=== PATIENT | male | born 1955 | race Caucasian/White ===

== ENCOUNTER 2023-06-09 16:52 | Inpatient (IN) | payer MEDICARE, OTHER, SELFPAY ==
[2023-06-09] VITALS (7 sets, daily range): BP systolic 138–193; BP diastolic 84–111; BMI 23.4
[2023-06-09 15:37] LABS: % Basophils 0.4 % (0-2); % Eosinophils 0.6 % (0-6); % Immature Granulocytes 1.4 % (0-0.5); % Lymphocytes 16.3 % (20.5-51.1); % Monocytes 5.3 % (1.7-9.3); Absolute Eosinophils 0.1 10^3/uL (0-0.7); Absolute Immature Granulocytes 0.1 10^3/uL (0-0.05); Absolute Lymphocytes 1.3 10^3/uL (1.2-3.4); Absolute Monocytes 0.4 10^3/uL (0.1-0.6); Absolute Neutrophils 6.2 10^3/uL (1.4-6.5); Hematocrit 36.1 % (39.0-52.0); Hemoglobin 11.9 g/dL (13.0-18.0); Mean Corpuscular Hgb 31.2 pg (27.0-31.0); Mean Corpuscular Volume 94.5 fL (80.0-94.0); Mean Platelet Volume 12.6 fL (7.4-10.4); Nucleated Red Blood Cells % 0 % (-); Platelet Count 119 10^3/uL (130-400); Red Blood Cell Count 3.82 10^6/uL (4.70-6.10); Red Cell Dist. Width 16.8 % (11.5-14.5); White Blood Cell Count 8.1 10^3/uL (4.8-10.8)
[2023-06-09 15:39] LABS: INR 1.49; PT 18.1 Sec (11.4-14.6)
[2023-06-09 15:40] LABS: APTT 32.6 Sec (23.4-35.0)
[2023-06-09 15:43] LABS: ALT (SGPT) 22 U/L (0-50); AST (SGOT) 26 U/L (17-59); Albumin 3.7 g/dl (3.5-5.0); Alkaline Phosphatase 62 U/L (38-126); Blood Urea Nitrogen 54 mg/dl (9-20); Calcium 10.4 mg/dl (8.4-10.2); Carbon Dioxide 26 mmol/L (22-30); Chloride 106 mmol/L (98-107); Glucose 112 mg/dl (70-99); Potassium 4.4 mmol/L (3.5-5.1); Sodium 137 mmol/L (135-145); Total Bilirubin 0.9 mg/dl (0.2-1.3); Total Protein 6.3 g/dl (6.3-8.2); eGFR 24.89
[2023-06-09 15:52] LABS: Troponin I < 0.012 ng/ml
--- NOTE | 2023-06-09 16:04 | ED.GENMED ---
History of Present Illness
General
Chief Complaint: Breathing Problem
Source: patient
Exam Limitations: none
Time Seen by Provider: 06/09/23 15:53
Nursing documentation reviewed up to this point in time: agreed with
Travel History
Have you had any contact with someone who has COVID-19?: No
Do you have any symptoms of coronavirus? Fever > 100 degrees, chills, cough, shortness of breath, sore throat, loss of taste or smell, muscle aches, or headache?: No
History of Present Illness
History of Present Illness:
68-year-old male with Yumiko history of DVT currently on Eliquis, hypertension, status post renal transplant as well on immunosuppressive's presenting to the emergency department today with concerns of significant pericardial effusion has had
general shortness of breath over the past year but worsening more recently. Patient ultrasound showing worsening of pericardial effusion. Cardiology recommending admission for treatment of this. Patient denies significant symptoms at rest here.
Past History
Past History
ED Past Medical History: Other (DVT) and Other (Polycystic kidney disease)
ED Past Surgical History: Other (Kidney transplant)
Social History
Tobacco: Non-smoker
Alcohol: None
Drug: None
Personal:
Living: with family
Employment: Employed
Family History
Family History: Other (nonContributory)
Review of Systems
Review of Systems
Allergies reviewed?: Yes
All Other Systems: ROS reviewed and negative except as documented in HPI and ROS
Phy Exam
Physical Exam
Physical Exam:
GENERAL: Alert , in no apparent distress
EYE: pupils equal and reactive
NECK: Supple, no significant adenopathy.
ENT: o/p clr, mmm.
CARDIAC: Regular rate and rhythm .
LUNGS: Clear breath sounds bilaterally, no acute respiratory distress, no wheezes/rales/rhonchi
ABDOMEN: Soft, without focal tenderness, no r/g, no cvat
NEUROLOGICAL: Alert and oriented, no focal neuro deficits
SKIN: Warm and dry, skin intact.
MUSCULOSKELETAL: No edema, well perfused.
PSYCH: Normal and appropriate interaction.
Scores
Heart Failure Risk
Heart Failure Risk Score: Not Applicable
Course
Orders/Labs/Results
Orders:
Orders
06/09/23 15:07
Electrocardiogram (*1) Urgent
Reason for Study: Shortness of Breath
EKG- Treatment ONCE
06/09/23 15:18
CMP [Comprehensive Metabolic Panel] Urgent
Complete Blood Count/With Diff Urgent
PT/INR [Prothrombin Time] Urgent
PTT Urgent
Troponin I Urgent
Abnormal Lab Results
06/09/23
15:18
RBC 3.82 L 10^6/uL
(4.70-6.10)
Hgb 11.9 L g/dL
(13.0-18.0)
Hct 36.1 L %
(39.0-52.0)
MCV 94.5 H fL
(80.0-94.0)
MCH 31.2 H pg
(27.0-31.0)
RDW 16.8 H %
(11.5-14.5)
Plt Count 119 L 10^3/uL
(130-400)
MPV 12.6 H fL
(7.4-10.4)
Abs Immat Gran (auto) 0.1 H 10^3/uL
(0-0.05)
Immature Gran % 1.4 H %
(0-0.5)
Neutrophils % 76.0 H %
(42.2-75.2)
Lymphocytes % 16.3 L %
(20.5-51.1)
PT 18.1 H Sec
(11.4-14.6)
BUN 54 H mg/dl
(9-20)
Creatinine 2.7 H mg/dL
(0.7-1.3)
Glucose 112 H mg/dl
(70-99)
Calcium 10.4 H mg/dl
(8.4-10.2)
06/09/23 15:18
06/09/23 15:18
Vital Signs
Initial and Last Documented VS:
Initial Vital Signs
Temp Pulse Resp BP Pulse Ox
97.7 F 62 18 138/92 97
06/09/23 15:03 06/09/23 15:03 06/09/23 15:03 06/09/23 15:03 06/09/23 15:03
Last Documented Vital Signs
Temp Pulse Resp BP Pulse Ox
97.7 F 62 18 138/92 97
06/09/23 15:03 06/09/23 15:03 06/09/23 15:03 06/09/23 15:03 06/09/23 15:03
MDM/Problems Addressed
MDM/Problems Addressed:
68-year-old male presenting to the emergency department today with concerns of large pericardial effusion seen on outpatient echo. Has had progressive shortness of breath over the past few months. Patient stable here in the ER will be admitted for
further treatment.
*Critical Care Note
Total Time (30-74mins, 75-104mins- exclusive of procedures): Not Applicable
ED Attending Note
-
Portions of this chart may have been created with voice recognition software.� Occasional wrong word or��sound alike� substitutions may have occurred due to the inherent limitations of voice recognition software.
Discharge Plan
Departure
Patient Disposition: Admit
Date of Disposition: 06/09/23
Time of Disposition: 16:05
Admit to: Telemetry
Admit to doctor: Shar
Presentation/result/management discussed w/ accepting MD/DO: Hospitalist
Patient with high blood pressure during this ER visit?: No
Condition: Good
Covid-19: Not Applicable
Discharge Problem:
Pericardial effusion
Prescriptions:
No Action
Eliquis 5 MG tablet
5 mg PO BID Qty: 74 0RF
cetirizine [Zyrtec] 10 mg Tablet
10 mg PO DAILYPRN PRN (Reason: allergies)
prednisone 5 mg Tablet
5 mg PO DAILY
atenolol 25 mg Tablet
25 mg PO DAILY
therapeutic multivitamin Tablet
1 tab PO DAILY
sirolimus [Rapamune] 1 mg Tablet
1 mg PO DAILY
simvastatin [Zocor] 20 mg Tablet
20 mg PO HS
tacrolimus 1 mg Capsule
1 mg PO Q12H
doxazosin 2 mg Tablet
4 mg PO QPM
probenecid 500 mg Tablet
500 mg PO BID
calcium carbonate-vitamin D3 [Calcium 600 + D(3)] 600 mg-10 mcg (400 unit) Tablet
2 tab PO BID
omeprazole 20 mg Tablet,Delayed Release (Dr/Ec)
20 mg PO DAILY
acetaminophen [Tylenol] 325 mg Tablet
650 mg PO QIDPRN PRN (Reason: chills)
valacyclovir 500 mg Tablet
500 mg PO BID
pregabalin [Lyrica] 25 mg Capsule
25 mg PO DAILY
Dificid 200 mg Tablet
200 mg PO BID Qty: 0 0RF
Interventions
Interventions:
*Risk Screen - Suicide Last Done: 06/09/23 15:54
*General Assessment Last Done: 06/09/23 15:55
*Neglect/Abuse Screening Last Done: 06/09/23 15:54
*ED COVID-19 Vaccine History Last Done: 06/09/23 15:55
Discharge Date and Time
Print Language: POLISH
--- NOTE | 2023-06-09 16:24 | CON.CAR ---
Addendum entered and electronically signed by John Issa DO 06/09/23 17:48:
I saw and examined the patient.
The [employer] Specialist's note was reviewed and I agree with the note.
Comment:
Plan:
Hold Eliquis in anticipation of possible pericardiocentesis next 24 hrs.
Check fluid pathology
May need to have hematology eval given hx of recurrent DVT. Difficult situation as will not be able to hold anticoagulation for a prolonged period of time.
Discussed with Paige at bedside who is my outpt.
HPI: Patient came to [facility] today after an outpatient echo showed pericardial effusion. Patient had an admission to 08/08/22 until 08/17/22 for sepsis and C diff. He had an echo that admission as noted above. Patient says that he was feeling more SOB
over the last month and his PCP ordered a CT chest and had him see Pulm. Patient started on an inhaler and felt better. CT showed a pericardial effusion and patient was sent for an echo that showed a large pericardial effusion with evidence of RV
chamber collapse. Patient was sent to [facility]. He has a h/o RLE DVT in 2009 and was treated with warfarin. 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 In 2014 he transitioned to Eliquis and
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 He held Eliquis for 1 month and on routine LE u/s was noted to have a LLE DVT and Eliquis was resumed. No FH of clotting disorders. He has not had
hematologic testing. He also has a h/o PCKD and had a renal transplant in 2001. Cre has been worse but no recent renal biopsy. He follows at [facility].
Original Note:
Consultation
Consultation Request
Date/Time Consultation Requested: 06/09/23
Date/Time Consultation Performed: 06/09/23
Requesting Provider: [place] NEFF in ER
Performing Provider: Dr. Issa
Reason for Consultation: Pericardial effusion
Medical History
-
History of Present Illness:
Patient came to [facility] today after an outpatient echo showed pericardial effusion. Patient had an admission to 08/08/22 until 08/17/22 for sepsis and C diff. He had an echo that admission as noted above. Patient says that he was feeling more SOB over
the last month and his PCP ordered a CT chest and had him see Pulm. Patient started on an inhaler and felt better. CT showed a pericardial effusion and patient was sent for an echo that showed a large pericardial effusion with evidence of RV chamber
collapse. Patient was sent to [facility]. He has a h/o RLE DVT in 2009 and was treated with warfarin. 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 In 2014 he transitioned to Eliquis and in 2020
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 He held Eliquis for 1 month and on routine LE u/s was noted to have a LLE DVT and Eliquis was resumed. No FH of clotting disorders. He has not had
hematologic testing. He also has a h/o PCKD and had a renal transplant in 2001. Cre has been worse but no recent renal biopsy. He follows at [facility].
PMH:
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
ESRD secondary to polycystic kidney disease
s/p living unrelated renal transplant at [facility] 2001
Recurrent squamous cell skin cancers, scalp, neck, and face s/p Mohs procedures
Hepatic cysts.
Recurrent lower extremity DVT
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
chronic Eliquis OAC since 2014, attempted to d/c in 2020 and recurred with DVT so no lifelong OAC
Hypertension.
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
Hypercholesterolemia.
h/o hepatitis A.
h/o left rectus sheath hematoma November of 2021.
E. coli urosepsis with bacteremia February 2022.
Past Medical History
Past Medical History: Other (in HPI)
Past Surgical History: Urological (renal transplant at [facility] in 2001)
Social History
Tobacco: Non-Smoker
Alcohol: Occasional
Drug: None
Personal:
Living: With Family
Family History
Family History: Other (No FH clotting disorders)
Allergies / Home Medications
Allergy/AdvReac Type Severity Reaction Status Date / Time
No Known Allergies Allergy Verified 08/08/22 03:16
�Medication �Instructions �Recorded �Confirmed �Type
apixaban 5 mg tablet (Eliquis) 5 mg PO BID #74 tabs 10/04/15 06/09/23 Rx
atenolol 25 mg tablet 25 mg PO BID Blood pressure 03/13/22 06/09/23 History
calcium carbonate 600 mg-vitamin 2 tab PO BID Supplement 03/13/22 06/09/23 History
D3 10 mcg (400 unit) tablet
(Calcium 600 + D(3))
cetirizine 10 mg tablet (Zyrtec) 10 mg PO DAILYPRN PRN allergies 03/13/22 06/09/23 History
omeprazole 20 mg tablet,delayed 20 mg PO DAILY Gastrointestinal 03/13/22 06/09/23 History
release issue
prednisone 5 mg tablet 5 mg PO DAILY Anti-inflammatory 03/13/22 06/09/23 History
probenecid 500 mg tablet 500 mg PO BID Gout 03/13/22 06/09/23 History
simvastatin 20 mg tablet (Zocor) 20 mg PO QPM High cholesterol 03/13/22 06/09/23 History
tacrolimus 1 mg capsule, 2 mg PO Q12 Autoimmune disorder 03/13/22 06/09/23 History
immediate-release
therapeutic multivitamin 1 tab PO DAILY Supplement 03/13/22 06/09/23 History
doxazosin 8 mg tablet 8 mg PO QPM 06/09/23 06/09/23 History
fluticasone furoate 100 1 inh inhalation R DAILY 06/09/23 06/09/23 History
mcg-vilanterol 25 mcg/dose
inhalation powder (Breo Ellipta)
hydralazine 25 mg tablet 25 mg PO BID 06/09/23 06/09/23 History
losartan 25 mg tablet 25 mg PO DAILY 06/09/23 06/09/23 History
torsemide 10 mg tablet 10 mg PO DAILY 06/09/23 06/09/23 History
Review of Systems
-
History Source: Patient and Family ( sitting bedside and helping with HPI)
All other systems: Negative unless noted
Physical Exam
Vital Signs
Temp Pulse Resp BP Pulse Ox
97.7 F 62 18 138/92 97
06/09/23 15:03 06/09/23 15:03 06/09/23 15:03 06/09/23 15:03 06/09/23 15:03
GEN: NAD, AAOx3
HEENT: EOMI, MMM
LUNGS: Decreased BS at bases without wheeze
CV: Reg, S1/S2, no murmur
ABD: soft, BS+, NT, ND
EXT: +1-2 B/L LE edema. No clubbing, cyanosis or lesions B/L
NEURO: Gross non-focal
SKIN: Warm, dry and pink. No rash
Lab Results
06/09/23 15:18
06/09/23 15:18
Troponin I < 0.012 ng/ml 06/09/23 15:18
Impression / Plan
-
PCP: Dr. Khan
Nephrology: Dr. Flores [facility] for transplant care
Pulm: Dr. Seo
Impression:
Pericardial effusion
SOB and TARANGO
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
ESRD secondary to polycystic kidney disease
s/p living unrelated renal transplant at [facility] 2001
Recurrent squamous cell skin cancers, scalp, neck, and face s/p Mohs procedures
Hepatic cysts.
Recurrent lower extremity DVT
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
chronic Eliquis OAC since 2014, attempted to d/c in 2020 and recurred with DVT so no lifelong OAC
Hypertension.
Reported h/o Owwvt-Ypdhshkkc-Jjnxc syndrome.
Hypercholesterolemia.
h/o hepatitis A.
h/o left rectus sheath hematoma November of 2021.
E. coli urosepsis with bacteremia February 2022.
Echo 08/10/22: EF 65-70%, trace MR, trace to mild pericardial effusion
Echo 06/09/23: EF 60%, normal RV size and function, mild MR, mild TR, large circumferential pericardial effusion with evidence of hemodynamic compromise, there is evidence of RV chamber collapse, borderline dilated aortic root at 3.8 cm.
Plan:
-Patient came to [facility] today after an outpatient echo showed pericardial effusion. Patient had an admission to 08/08/22 until 08/17/22 for sepsis and C diff. He had an echo that admission as noted above. Patient says that he was feeling more SOB
over the last month and his PCP ordered a CT chest and had him see Pulm. Patient started on an inhaler and felt better. CT showed a pericardial effusion and patient was sent for an echo that showed a large pericardial effusion with evidence of RV
chamber collapse. Patient was sent to [facility]. He has a h/o RLE DVT in 2009 and was treated with warfarin. 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 In 2014 he transitioned to Eliquis and
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 He held Eliquis for 1 month and on routine LE u/s was noted to have a LLE DVT and Eliquis was resumed. No FH of clotting disorders. He has not had
hematologic testing. He also has a h/o PCKD and had a renal transplant in 2001. Cre has been worse but no recent renal biopsy. He follows at [facility].
-Hold Eliquis starting now. He took a dose of Eliquis this AM.
-Will plan on pericardiocentesis in AM.
-Will need to check pathology of fluid.
-Patient with h/o recurrent DVT and will need to resume OAC
-ECG reviewed by me with NSR and normal voltage
--- NOTE | 2023-06-09 16:35 | HPS.HSE ---
Family Physician
-
Family Physician:
Chief Complaint
-
shortness of breath
History of Present Illness
68-year-old male with past medical history of recurrent DVT on Eliquis, hypertension, asthma, pleural/pericardial effusion, CKD 3b, polycystic kidney disease status post kidney transplant, polycystic liver disease, GERD, hyperlipidemia, shingles,
CHF, chronic lymphedema, gout, Kuqor-Vlvffxkpo-Wifgy syndrome, right hydrocele, left rectus sheath hematoma, presenting with worsening shortness of breath over the past year. Patient saw his finn[place] rubber Dr. Delgadillo who performed outpatient
echocardiogram showing large pericardial effusion and he was recommended to come to the hospital.
Patient denies any chest pain, dizziness or syncope. He has recently had some productive cough. He denies any fevers or chills. He has chronic lower extremity lymphedema but denies any weight gain and in fact has lost weight.
He drinks alcohol 4-5 times a month. He denies smoking.
Medical History
Past Medical History
Past Medical History: Reports Other (recurrent DVT on Eliquis, hypertension, asthma, pleural/pericardial effusion, CKD 3b, polycystic kidney disease status post kidney transplant, polycystic liver disease, GERD, hyperlipidemia, shingles, CHF,
chronic lymphedema, gout, Pnzvm-Qirbgnflv-Lbeuk syndrome, right hydrocele, left rectus sheath )
Past Surgical History: Reports Other ((Kidney transplant))
Social History
Tobacco: Non-smoker
Alcohol: Occasional
Drug: None
Family History
Family History: Not pertinent
Allergies / Home Medications
Allergies reflects when Allergies were last updated in [facility].
Home Medications with original date entered in [facility]
Allergy/Medication List:
Allergies
Allergy/AdvReac Type Severity Reaction Status Date / Time
No Known Allergies Allergy Verified 08/08/22 03:16
Home Medications
apixaban 5 mg tablet (Eliquis) 5 mg PO BID #74 tabs 10/04/15
atenolol 25 mg tablet 25 mg PO BID Blood pressure 03/13/22
calcium carbonate 600 mg-vitamin D3 10 mcg (400 unit) tablet (Calcium 600 + D(3)) 2 tab PO BID Supplement 03/13/22
cetirizine 10 mg tablet (Zyrtec) 10 mg PO DAILYPRN PRN allergies 03/13/22
omeprazole 20 mg tablet,delayed release 20 mg PO DAILY Gastrointestinal issue 03/13/22
prednisone 5 mg tablet 5 mg PO DAILY Anti-inflammatory 03/13/22
probenecid 500 mg tablet 500 mg PO BID Gout 03/13/22
simvastatin 20 mg tablet (Zocor) 20 mg PO QPM High cholesterol 03/13/22
tacrolimus 1 mg capsule, immediate-release 2 mg PO Q12 Autoimmune disorder 03/13/22
therapeutic multivitamin 1 tab PO DAILY Supplement 03/13/22
doxazosin 8 mg tablet 8 mg PO QPM 06/09/23
fluticasone furoate 100 mcg-vilanterol 25 mcg/dose inhalation powder (Breo Ellipta) 1 inh inhalation R DAILY 06/09/23
hydralazine 25 mg tablet 25 mg PO BID 06/09/23
losartan 25 mg tablet 25 mg PO DAILY 06/09/23
torsemide 10 mg tablet 10 mg PO DAILY 06/09/23
Review of Systems
-
History Source: Patient
A 12 point ROS was completed and negative except as noted: Yes
Constitutional: Reports No Symptoms
EENT: Reports No Symptoms
Respiratory: Reports See HPI
Cardiac: Reports See HPI
Abdomen/GI: Reports No Symptoms
: Reports No Symptoms
Musculoskeletal: Reports No Symptoms
Skin: Reports No Symptoms
Neurological: Reports No Symptoms
Endocrine: Reports No Symptoms
Hematologic/Lymphatic: Reports No Symptoms
Psych: Reports No Symptoms
Physical Exam
Vital Signs
Vital Signs
Temp Pulse Resp BP Pulse Ox
97.7 F 62 18 138/92 97
06/09/23 15:03 06/09/23 15:03 06/09/23 15:03 06/09/23 15:03 06/09/23 15:03
Physical Exam
General: Well Developed, Well Nourished and No Apparent Distress
HEENT: NormoCephalic, Moist mucous membranes and Atraumatic
Respiratory: Clear
Cardiac: S1/S2, Regular Rhythm and Peripheral Edema; No Murmur or Rub
GI: Soft, Non Tender, Non Distended and Normal Bowel Sounds; No Organomegaly
Rectal: Deferred by Provider
Musculoskeletal: No Clubbing, No Cyanosis and No Edema
Skin: No Rash
Neuro: Nonfocal/grossly intact
Laboratory Results
-
06/09/23 15:18
06/09/23 15:18
Laboratory Results
PT 18.1 Sec (11.4-14.6) H 06/09/23 15:18
INR 1.49 06/09/23 15:18
APTT 32.6 Sec (23.4-35.0) 06/09/23 15:18
Total Bilirubin 0.9 mg/dl (0.2-1.3) 06/09/23 15:18
AST 26 U/L (17-59) 06/09/23 15:18
ALT 22 U/L (0-50) 06/09/23 15:18
Alkaline Phosphatase 62 U/L (38-126) 06/09/23 15:18
Troponin I < 0.012 ng/ml 06/09/23 15:18
Data Reviewed
-
Lab Data: Labs Reviewed by me
Old Records: Reviewed
Impression/Plan
-
IMPRESSION:
PLAN:
# Large pericardial effusion with evidence of RV chamber collapse
-EKG shows normal sinus rhythm
-Echo shows large circumferential pericardial effusion with evidence of hemodynamic compromise, evidence of right RV chamber collapse
-Check chest x-ray to evaluate for pleural effusion
-Cardiology consulted
-Hold Eliquis for likely pericardiocentesis
# Mild Hypercalcemia likely secondary to calcium supplementation
-Hold calcium supplement
Chronic HFpEF
-Not in CHF exacerbation
-Continue torsemide
History of distant Pondd-Fvhcvxvks-Jzulq syndrome
History of recurrent DVT on Eliquis most recently in 2020
-Hold Eliquis
Asthma/allergies
-Continue Breo
-Continue cetirizine
Essential hypertension
-Continue hydralazine, losartan, doxazosin, atenolol
Polycystic kidney disease status post kidney transplant
-Continue tacrolimus,
CKD 3B
-renal function at baseline
Chronic lymphedema
Polycystic liver disease
History of hematuria
Chronic anemia
-Hemoglobin stable at 11.9
Mild thrombocytopenia unclear etiology
-Stable
GERD
-Continue omeprazole
Hyperlipidemia
-Continue statin
Gout
-Continue probenecid, prednisone
History of shingles
History of right hydrocele
History of left rectus sheath hematoma
History of C. difficile
Full code
DVT prophylaxis-heparin
Regular diet
[2023-06-09] MEDS: APRESOLINE 25 MG PO (19:42)
[2023-06-09] MEDS: TENORMIN 25 MG PO (19:43)
[2023-06-09] MEDS: PROGRAF 2 MG PO (19:43)
[2023-06-09] MEDS: CARDURA 8 MG PO (19:48)
[2023-06-09] MEDS: LIPITOR 10 MG PO (19:48)
[2023-06-09] MEDS: HEPARIN 5000 UNITS SC (19:49)
[2023-06-09] MEDS: BENEMID 500 MG PO (20:09)
[2023-06-10] VITALS (11 sets, daily range): BP systolic 149–174; BP diastolic 83–99; BMI 23.4; BMI 23.0
--- NOTE | 2023-06-10 02:15 | PTCARENOTE ---
Assumed care of patient at 23:00. Pt AAOx3, tele monitor shows SR-Sinus jony w/ occasional PVCs. HR in the 50-60's at rest. Patient denies any pain or SOB at this time. Lungs clear throughout w/ an occasional KNIFE EDGER cough. Aware of NPO status. Call
vera in reach.
[2023-06-10 04:42] LABS: % Basophils 0.5 % (0-2); % Immature Granulocytes 0.4 % (0-0.5); % Lymphocytes 26.1 % (20.5-51.1); % Monocytes 6.3 % (1.7-9.3); % Neutrophils 64.7 % (42.2-75.2); Absolute Eosinophils 0.2 10^3/uL (0-0.7); Absolute Lymphocytes 1.9 10^3/uL (1.2-3.4); Absolute Monocytes 0.5 10^3/uL (0.1-0.6); Absolute Neutrophils 4.8 10^3/uL (1.4-6.5); Hematocrit 32.2 % (39.0-52.0); Hemoglobin 10.6 g/dL (13.0-18.0); Mean Corp Hgb Conc. 32.9 g/dL (33.0-37.0); Mean Corpuscular Hgb 31.2 pg (27.0-31.0); Mean Corpuscular Volume 94.7 fL (80.0-94.0); Mean Platelet Volume 12.9 fL (7.4-10.4); Nucleated Red Blood Cells % 0 % (-); Platelet Count 105 10^3/uL (130-400); Red Cell Dist. Width 16.8 % (11.5-14.5); White Blood Cell Count 7.4 10^3/uL (4.8-10.8)
[2023-06-10 05:08] LABS: ALT (SGPT) 17 U/L (0-50); AST (SGOT) 22 U/L (17-59); Albumin 2.9 g/dl (3.5-5.0); Alkaline Phosphatase 59 U/L (38-126); Blood Urea Nitrogen 54 mg/dl (9-20); Calcium 9.8 mg/dl (8.4-10.2); Carbon Dioxide 24 mmol/L (22-30); Chloride 109 mmol/L (98-107); Estimated Creatinine Clearance 32 ml/min; Glucose 79 mg/dl (70-99); Potassium 4.1 mmol/L (3.5-5.1); Sodium 136 mmol/L (135-145); Total Bilirubin 0.7 mg/dl (0.2-1.3); Total Protein 5.3 g/dl (6.3-8.2)
--- NOTE | 2023-06-10 07:24 | W.PN.HOSP.TC ---
Today's Communication/Plan
-
Continue to hold off on Eliquis
Awaiting cardiology input for timetable for pericardiocentesis
Will increase hydralazine to 50 mg twice daily/and as needed
Monitor CBC and BMP
Assessment / Plan
Assessment / Plan
68-year-old male with past medical history of recurrent DVT on Eliquis, hypertension, asthma, pleural/pericardial effusion, CKD 3b, polycystic kidney disease status post kidney transplant, polycystic liver disease, GERD, hyperlipidemia, shingles,
CHF, chronic lymphedema, gout, Lbwig-Dussinncz-Jxswm syndrome, right hydrocele, left rectus sheath hematoma, presenting with worsening shortness of breath over the past year. Patient saw his accounts payable representative Dr. Delgadillo who performed outpatient
echocardiogram showing large pericardial effusion and he was recommended to come to the hospital.
Patient denies any chest pain, dizziness or syncope. He has recently had some productive cough. He denies any fevers or chills. He has chronic lower extremity lymphedema but denies any weight gain and in fact has lost weight. 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
local behavioral health consultant has had difficulty controlling his blood pressure which is been resistant to increasing dosing of doxazosin atenolol and hydralazine and losartan.. Follows with [facility] nephrology transplant specialist and was due to have
tacrolimus level done today at the [facility].
He drinks alcohol 4-5 times a month. He denies smoking.
Large pericardial effusion with evidence of RV chamber collapse
-EKG shows normal sinus rhythm
-Echo shows large circumferential pericardial effusion with evidence of hemodynamic compromise, evidence of right RV chamber collapse
-Chest x-ray shows a small right and minimal left pleural effusion with mild atelectasis in the lower lobe
-Cardiology consulted
-Hold Eliquis for likely pericardiocentesis
# Mild Hypercalcemia likely secondary to calcium supplementation
-Hold calcium supplement
Chronic HFpEF
-Not in CHF exacerbation
-Continue torsemide
=-Is increasing lower extremity edema over the last couple months may be in relation to also underlying RV failure
History of distant Fzkvf-Ihzqubdju-Csnhx syndrome
History of recurrent DVT on Eliquis most recently in 2020
-Hold Eliquis
Asthma/allergies
-Continue Breo
-Continue cetirizine
Essential hypertension
-Continue hydralazine, losartan, doxazosin, atenolol
Polycystic kidney disease status post kidney transplant
-Continue tacrolimus,
-Was due for tacrolimus level today at the [facility]
-Sirolimus was recently discontinued in favor of increasing dosing of tacrolimus by [facility] nephrology
-Creatinine at baseline or improved on presentation
CKD 3B
-renal function at baseline
Chronic lymphedema
Polycystic liver disease
History of hematuria
Chronic anemia
-Hemoglobin stable at 11.9
Mild thrombocytopenia unclear etiology
-Stable
GERD
-Continue omeprazole
Hyperlipidemia
-Continue statin
Gout
-Continue probenecid, prednisone
History of shingles
History of right hydrocele
History of left rectus sheath hematoma
History of C. difficile
Full code
DVT prophylaxis-heparin
Regular diet
Anticipated Discharge: 24 - 48 hours
Subjective/Interval History
-
Date of Service: June 10, 2023
Only refers a little ache across his anterior chest but otherwise had a restful night was able to lie flat mostly for sleep he describes increasing leg edema for the last several months and has had to use compression grade stockings to keep it down
also increasing shortness of breath in that time period.
Objective Data
-
Labs:
Laboratory Results
06/10/23
04:11
WBC 7.4
Hgb 10.6 L
Hct 32.2 L
Plt Count 105 L
Sodium 136
Potassium 4.1
Chloride 109 H
Carbon Dioxide 24
BUN 54 H
Creatinine 2.5 H
Glucose 79
Calcium 9.8
Total Bilirubin 0.7
AST 22
ALT 17
Alkaline Phosphatase 59
Vital Signs:
Vital Signs
Temp Pulse Resp BP Pulse Ox
98.1 F 65 18 174/99 92
06/10/23 04:02 06/10/23 06:00 06/10/23 04:02 06/10/23 04:01 06/10/23 04:02
I&O
06/09/23 06/10/23 06/11/23
06:59 06:59 06:59
Intake Total 520 / 520
Balance 520 / 520
Review of Systems
-
History Source: Patient
Constitutional: Reports No Symptoms
Cardiac: Reports Chest Pain and Orthopnea
Abdomen/GI: Reports No Symptoms
Genitourinary: Reports No Symptoms
Hematologic / Lymphatic: Reports Lymphedema
Physical Exam
-
General: Well Developed
HEENT: Normocephalic
Respiratory: Clear to Auscultation
Cardiac: Regular Rhythm; Negative Murmur
Musculoskeletal: Edema, Right Lower Extrem and Edema, Left Lower Extrem
Skin: IV Access / Catheter Site
Neuro: Awake, Alert and Oriented
Psych: Calm
Data Reviewed
-
Total Time Spent with Patient (in minutes): 56
Labs: Labs Reviewed by me
[2023-06-10] MEDS: SYMBICORT 80/4.5 MCG INHALER 2 PUFF INH ×2 (07:45→19:46)
[2023-06-10] MEDS: PROGRAF 2 MG PO ×2 (08:19→20:01)
[2023-06-10] MEDS: PROTONIX 40 MG PO (08:19)
[2023-06-10] MEDS: THERAGRAN 1 TABLET PO (08:19)
[2023-06-10] MEDS: COZAAR 25 MG PO (08:19)
[2023-06-10] MEDS: TENORMIN 25 MG PO ×2 (08:19→20:00)
[2023-06-10] MEDS: APRESOLINE 50 MG PO ×2 (08:19→20:00)
[2023-06-10] MEDS: HEPARIN 5000 UNITS SC (08:23)
[2023-06-10] MEDS: BENEMID 500 MG PO ×2 (09:02→20:00)
[2023-06-10] MEDS: DELTASONE 5 MG PO (09:02)
--- NOTE | 2023-06-10 11:54 | CM ---
Reviewed chart. Met with and Mrs. Ramos to review discharge plans. He states prior to admission he resides with his spouse in a two story home with three steps to enter. He states he has a full flight of steps to get to bedroom/full
bathroom. He states he has a powder room on the first floor. He states prior to admission he was independent with ambulation and adls. He states he has a prescription plan and uses [facility]. Medical work-up in progress. The discharge plan is
to return home with his spouse when medically stable.
--- NOTE | 2023-06-10 12:00 | ITS.CL.PN ---
Instrumentation And Controls Technician - Procedure Note
Procedure
Procedure Note:
PERICARDIOCENTESIS REPORT
Date: June 10, 2023
Referring: John Issa
Indications: Large pericardial effusion with ongoing SOB
Procedure: Pericardiocentesis via transapical approach under echocardiographic guidance
After obtaining consent, the patient was brought to the cardiac labor crew supervisor and placed in a recumbent position. Echocardiogram was used to ascertain the best approach vector. A transapical approach was selected. The site was anesthetized with 1%
lidocaine. Under ultrasound guidance, a micropuncture needle was advanced into the pericardial space under negative pressure. After obtaining flashback of pericardial fluid, the micropuncture wire was advanced into the pericardial space and the
needle was removed. The micropuncture sheath was advanced over the wire and the wire and dilator were removed. Agitated saline was injected through the micropuncture sheath confirming its presence in the pericardial space on echocardiography. A
0.035 inch J-wire was advanced through the micropuncture sheath and into the pericardial space. The micropuncture sheath was removed and a 6 Liberian sheath was advanced over the 0.035 inch wire. A pigtail catheter was advanced through the sheath over
the J-wire and placed in the pericardial space. The J-wire was removed. The pericardial pressure was measured. A sufficient sample of pericardial fluid was removed and sent for laboratory testing (hemoglobin, hematocrit, white blood cell count, LDH,
albumin, total protein, cytology and culture). The pigtail catheter was then connected to a Vacutainer and the pericardial space was evacuated. Serial echocardiography confirmed reduction in the pericardial effusion from severe to trace. All
evidence of tamponade was removed. The 6 Liberian sheath was sutured into place. The pigtail catheter was likewise sutured into place then curled around the sheath and covered by a sterile Tegaderm. Repeat pericardial pressure was measured,
confirming significant reduction. The pigtail catheter was then connected to a [place] drain to suction. The patient reported significant improvement in their shortness of breath.
Procedure Details:
Approach: Transapical
Sheath/Drain size (Fr) 6
Pericardial Volume (mL): 910
Effusion type: Straw-colored
Non-effusion blood loss (mL): Minimal
Pericardial pressures
Pre drainage (mmHg): 11
Post drainage (mmHg): 1
RADIATION SUMMARY: Fluoro Time (min): 0.8, Dose (mGy): 16.1, DAP (Gy.cm2) : 1.85
Conclusion:
1. Successful pericardiocentesis via transapical approach under echocardiographic guidance with 910 cc of straw-colored pericardial fluid output. Pericardial drain secured in place via a 6 Liberian sheath.
2. Pericardial fluid has been sent for laboratory analysis.
Recommendations:
1. Pain control as needed.
2. Plan to discontinue drain once pericardial output less than 25 cc over 24 hours or once the drain has been in for 5 or more days given increased risk for infection.
3. Plan to resume Eliquis this evening as long as no other procedures planned.
Copy to: Navjot Delgadillo; John Issa
Tonya New MD, FACC, [facility]
--- NOTE | 2023-06-10 12:01 | W.PN.CARDCBS ---
Addendum entered and electronically signed by Tonya New MD 06/10/23 15:48:
I saw and examined the patient.
The Risk Prevention Engineer's note was reviewed and I agree with the note.
Comment: Patient has been doing well and mainly reports dyspnea on exertion with walking or going uphill.
Vital signs and lab work reviewed. Hemodynamically remained stable. Echocardiogram reviewed with presence of large pericardial effusion with some RV compression.
Plan is for echo guided pericardiocentesis in the heart catheterization lab today.
Further recommendations postprocedure
Tonya New MD, [facility], [facility]
Original Note:
Today's Communication / Plan
-
Pericardiocentesis today
Impression / Plan
-
PCP: Dr. Khan
Nephrology: Dr. Mark lenz, [facility] for transplant care
Pulm: Dr. Seo
Impression:
Pericardial effusion
SOB and TARANGO
CKD 3b to 4
ESRD secondary to polycystic kidney disease
s/p living unrelated renal transplant at [facility] 2001
Recurrent squamous cell skin cancers, scalp, neck, and face s/p Mohs procedures
Hepatic cysts.
Recurrent lower extremity DVT
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
chronic Eliquis OAC since 2014, attempted to d/c in 2020 and recurred with DVT so now on lifelong OAC
Hypertension.
Reported h/o Xyxsq-Kjywojkfs-Hmwpi syndrome.
Hypercholesterolemia.
h/o hepatitis A.
h/o left rectus sheath hematoma November of 2021.
E. coli urosepsis with bacteremia February 2022.
Echo 08/10/22: EF 65-70%, trace MR, trace to mild pericardial effusion
Echo 06/09/23: EF 60%, normal RV size and function, mild MR, mild TR, large circumferential pericardial effusion with evidence of hemodynamic compromise, there is evidence of RV chamber collapse, borderline dilated aortic root at 3.8 cm.
Plan:
-Patient without hemodynamic compromise overnight, in fact he has been HTN throughout admission and hydralazine was increased to 50 mg BID. Patient and family are asking for Nephrology to be notified of patient's admission and to weigh in on med
changes given h/o renal transplant.
-From a CV standpoint, patient with large pericardial effusion on echo 06/09/23. Echo ordered for weeks of SOB. Patient is chronically on Eliquis for recurrent DVT whenever OAC has been interrupted. No formal hematologic diagnosis and no previous
clotting disorder testing.
-Last dose of Eliquis 06/09/23 AM.
-Baseline Cre is 2.7 to 2.9. Cre is 2.5 on 06/10/23.
-Will need to check pathology of fluid.
HPI: Patient came to [facility] today after an outpatient echo showed pericardial effusion. Patient had an admission to 08/08/22 until 08/17/22 for sepsis and C diff. He had an echo that admission as noted above. Patient says that he was feeling more SOB
over the last month and his PCP ordered a CT chest and had him see Pulm. Patient started on an inhaler and felt better. CT showed a pericardial effusion and patient was sent for an echo that showed a large pericardial effusion with evidence of RV
chamber collapse. Patient was sent to [facility]. He has a h/o RLE DVT in 2009 and was treated with warfarin. 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 In 2014 he transitioned to Eliquis and
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 He held Eliquis for 1 month and on routine LE u/s was noted to have a LLE DVT and Eliquis was resumed. No FH of clotting disorders. He has not had
hematologic testing. He also has a h/o PCKD and had a renal transplant in 2001. Cre has been worse but no recent renal biopsy. He follows at [facility].
Progress Note - Pellet Machine Operator
Subjective
Date of Service: June 10, 2023
No SOB at rest
Objective
Labs:
06/10/23 04:11
06/10/23 04:11
Labs
Hgb 10.6 g/dL (13.0-18.0) L 06/10/23 04:11
Hct 32.2 % (39.0-52.0) L 06/10/23 04:11
Plt Count 105 10^3/uL (130-400) L 06/10/23 04:11
PT 18.1 Sec (11.4-14.6) H 06/09/23 15:18
INR 1.49 06/09/23 15:18
APTT 32.6 Sec (23.4-35.0) 06/09/23 15:18
Sodium 136 mmol/L (135-145) 06/10/23 04:11
Potassium 4.1 mmol/L (3.5-5.1) 06/10/23 04:11
BUN 54 mg/dl (9-20) H 06/10/23 04:11
Creatinine 2.5 mg/dL (0.7-1.3) H 06/10/23 04:11
Glucose 79 mg/dl (70-99) 06/10/23 04:11
Troponins
06/09/23
15:18
Troponin I < 0.012
Vital Signs and I&O:
Vital Signs
Temp Pulse Resp BP Pulse Ox
98.0 F 64 18 165/95 96
06/10/23 11:51 06/10/23 08:19 06/10/23 11:51 06/10/23 08:19 06/10/23 11:51
Vital Signs
Temp Pulse Resp BP Pulse Ox
98.0 F 64 18 165/95 96
06/10/23 11:51 06/10/23 08:19 06/10/23 11:51 06/10/23 08:19 06/10/23 11:51
Intake & Output
06/08/23 06/09/23 06/10/23 06/11/23
06:59 06:59 06:59 06:59
Intake Total 520 / 520
Balance 520 / 520
Physical Exam
Physical Exam
GEN: NAD, AAOx3
HEENT: EOMI
LUNGS: Decreased BS at bases without wheeze
CV: Reg, S1/S2, no murmur
ABD: ND
EXT: +1-2 B/L LE edema.
NEURO: Gross non-focal
SKIN: No rash
--- NOTE | 2023-06-10 15:26 | PTCARENOTE ---
Received pt from cardiac wood and wood products labourer w/ apical pericardial drain intact. Serosanguenous drainage in pericardial drain. MD aware. ECG obtained. Pt c/o 7 out of 10 left ACW pain. Meds as ordered. Will monitor.
[2023-06-10 15:28] LABS: Body Fluid Glucose 98 mg/dl; Body Fluid LDH 127 U/L
[2023-06-10] MEDS: MORPHINE SULFATE 2 MG IV (15:38)
[2023-06-10 15:54] LABS: Body Fluid Hematocrit < 1.0 %
[2023-06-10] MEDS: ZOFRAN 4 MG IV (16:00)
[2023-06-10 16:29] LABS: Body Fluid WBC 215 /CUMM
[2023-06-10 16:42] LABS: Body Fluid Second Tech DB
[2023-06-10] MEDS: COLCHICINE 0.299999999999999989 MG PO (17:20)
[2023-06-10] MEDS: DEMADEX PO (17:20)
--- NOTE | 2023-06-10 17:30 | PTCARENOTE ---
Pt given MSO4 for 7 out of 10 pain. Pt vomited about 100 ml of clear liquid, zofran given. Pt continues to c/o 7-9 out of 10 left ACW pain that now radiated to his shoulder. Meds as ordered. Will monitor.
[2023-06-10] MEDS: CARDURA 8 MG PO (18:18)
[2023-06-10] MEDS: LIPITOR 10 MG PO (18:19)
[2023-06-10] MEDS: PERCOCET 5/325 1 TABLET PO (20:00)
[2023-06-10] MEDS: HEPARIN SC (20:56)
--- NOTE | 2023-06-10 21:41 | PTCARENOTE ---
Received patient at change of shift w/ family at bedside. AAOx3 and appears anxious. Patient c/o severe left chest pain that radiates to his left shoulder. Pt also c/o his breathing being disturbed due to the surgical site/pain. Breathing shallow
and sating 93% RA. Applied 2L of O2 for comfort, and currently sating 96%. Dr. Rivas made aware, and instructed RN to obtain EKG. EKG showed SR w/ premature supraventricular complexes. This RN administered 1 Percocet at 20:00. Pt w/ good relief, and
post pain level down to a 5/10. Patient currently resting in bed. Call vera in reach.
[2023-06-11] VITALS (60 sets, daily range): BP systolic 86–155; BP diastolic 55–88; BMI 22.0
[2023-06-11] MEDS: MORPHINE SULFATE 2 MG IV (00:43)
[2023-06-11] MEDS: ZOFRAN 4 MG IV (00:47)
--- NOTE | 2023-06-11 01:11 | PTCARENOTE ---
Patient c/o 12/01 left upper chest discomfort that radiates to shoulders. Morphine 2mg administered --see MAR. Patient also c/o nausea and then had a unmeasurable episode of green emesis. Zofran administered--see MAR for further details.
Pericardial drain site w/ small amount of serosanguineous drainage--site marked. Call vera in reach.
[2023-06-11] MEDS: COMPAZINE 10 MG IV (03:09)
[2023-06-11 03:13] LABS: Hematocrit 36.5 % (39.0-52.0); Hemoglobin 12.3 g/dL (13.0-18.0); Mean Corp Hgb Conc. 33.7 g/dL (33.0-37.0); Mean Corpuscular Hgb 31.1 pg (27.0-31.0); Mean Corpuscular Volume 92.2 fL (80.0-94.0); Mean Platelet Volume 11.8 fL (7.4-10.4); Platelet Count 114 10^3/uL (130-400); Red Blood Cell Count 3.96 10^6/uL (4.70-6.10); Red Cell Dist. Width 16.4 % (11.5-14.5); White Blood Cell Count 10.9 10^3/uL (4.8-10.8)
[2023-06-11] MEDS: LASIX 20 MG IV (03:30)
[2023-06-11 03:41] LABS: Blood Urea Nitrogen 51 mg/dl (9-20); Carbon Dioxide 23 mmol/L (22-30); Chloride 106 mmol/L (98-107); Estimated Creatinine Clearance 32 ml/min; Glucose 156 mg/dl (70-99); Magnesium 1.7 mg/dl (1.6-2.3); Potassium 4.6 mmol/L (3.5-5.1); Sodium 136 mmol/L (135-145); eGFR 28.67
[2023-06-11] MEDS: LASIX 40 MG IV (03:53)
--- NOTE | 2023-06-11 04:04 | W.PN.UPDATE ---
Update Note
Progress Note Update
-came in urgently @ ~ 2:50 am to see pt for acute SOB. Pt just vomited green emesis and was given Zofran earlier. He looks in moderate distress, diaphoretic and c/o SOB. pOx 89% on 2L, 91% on 6L. He was on RA on . Gave Compazine for any
further nausea. Pericardial drain put out 350cc serosang fluid overnight so far and UO 775 cc for the restaurant shift supervisor (without any diuretic). Pt takes 10 mg Torsemide at home, but has been held here. On exam, he has decreased breath sounds b/l with few
rales at R base, no wheeze. +JVD with HJR and 2+ leg edema. BP 122/73, in NSR 90 bpm, nl temp. Has hx of recurrent DVT while of OAC (Eliquis last 417/24).
-CXR this am appears worse with cephalization and increased RLL opacity - ? increased effusion vs atelectasis. Labs were sent - Cr improving 2.4 (baseline 2.7-2.9), Hg 12.3 (10.6 prior)
-discussed with Dr. Rivas- will give 60mg iv Lasix now. Pt already appears feeling better on NRB with pOx 98% and BP 152/88
-will monitor closely
--- NOTE | 2023-06-11 04:22 | PTCARENOTE ---
Patient rang call vera at approximately 02:45 and wanted to get back to bed. Morning weight obtained, and then patient sat on the side of the bed. He became nauseous and vomited 300cc of green bile. Compazine 10mg IV administered. Upon further
assessment pt appears diaphoretic and stating 'I just feel awful'. Stephanie MIKE PA made aware and at bedside. Blood pressure stable. C/o 'I can't take a deep breath'. Pulse ox 89% increased O2 to 6L. Patient remained 91% on 6L. PA instructed
RN to place patient on 15L of non rebreather along w/ 6L of O2. Patient currently sating 98%. Morning blood work obtained and stat CXR ordered/taken at bedside. Stephanie NEFF placed orders for 20mg IV Lasix. Call placed to Dr. PUENTE
Rob, and an extra 40mg of IV Lasix ordered and administered--see MAR for further details. Urinal at bedside. Patient currently resting quietly in bed. Denies any further nausea. Still reports having difficulty breathing, but currently sating 97%
on 6L O2 and 15L NRB. Call vera in reach. Will pass along to day shift RN.
[2023-06-11] MEDS: SYMBICORT 80/4.5 MCG INHALER 2 PUFF INH ×2 (07:18→20:45)
--- NOTE | 2023-06-11 07:35 | W.PN.HOSP.TC ---
Today's Communication/Plan
-
Waiting for urine output to improve with dose of Lasix IV
Have reached out to cardiology in regards to events of last night
Will obtain bladder scan protocol and nephrology input
Continue to monitor renal numbers and CBC
Assessment / Plan
Assessment / Plan
68-year-old male with past medical history of recurrent DVT on Eliquis, hypertension, asthma, pleural/pericardial effusion, CKD 3b, polycystic kidney disease status post kidney transplant, polycystic liver disease, GERD, hyperlipidemia, shingles,
CHF, chronic lymphedema, gout, Wwtub-Gkailqlvf-Sepxu syndrome, right hydrocele, left rectus sheath hematoma, presenting with worsening shortness of breath over the past year. Patient saw his admission specialist Dr. Delgadillo who performed outpatient
echocardiogram showing large pericardial effusion and he was recommended to come to the hospital.
Patient denies any chest pain, dizziness or syncope. He has recently had some productive cough. He denies any fevers or chills. He has chronic lower extremity lymphedema but denies any weight gain and in fact has lost weight. 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
local packing room supervisor has had difficulty controlling his blood pressure which is been resistant to increasing dosing of doxazosin atenolol and hydralazine and losartan.. Follows with [facility] nephrology transplant specialist and was due to have
tacrolimus level done today at the [facility].
He drinks alcohol 4-5 times a month. He denies smoking.
Large pericardial effusion with evidence of RV chamber collapse
-EKG shows normal sinus rhythm
-Echo shows large circumferential pericardial effusion with evidence of hemodynamic compromise, evidence of right RV chamber collapse
-Chest x-ray shows a small right and minimal left pleural effusion with mild atelectasis in the lower lobe
-Cardiology consulted
-Held Eliquis
-Now status post pericardiocentesis with drain
# Mild Hypercalcemia likely secondary to calcium supplementation
-Hold calcium supplement
Chronic HFpEF
-Not in CHF exacerbation on presentation but seems to have increased right pleural effusion this morning
-Continue torsemide/received dosage of IV furosemide 60 mg overnight
=-Is increasing lower extremity edema over the last couple months may be in relation to also underlying RV failure
History of distant Zvyww-Rremhulrz-Asavy syndrome
History of recurrent DVT on Eliquis most recently in 2020
-Hold Eliquis
Asthma/allergies
-Continue Breo
-Continue cetirizine
Essential hypertension
-Continue hydralazine, losartan, doxazosin, atenolol
Polycystic kidney disease status post kidney transplant
-Continue tacrolimus,
-Was due for tacrolimus level today at the [facility]
-Sirolimus was recently discontinued in favor of increasing dosing of tacrolimus by [facility] nephrology
-Creatinine at baseline or improved on presentation
-Diminished urine output overnight and spite of IV Lasix/will get nephrology input
-Initiate bladder scanning and straight cath protocol
CKD 3B
-renal function at baseline
-In spite of improvement in creatinine decreased urine output noted overnight
-Obtain bladder scan for PVR/
-Consult nephrology
Chronic lymphedema
Polycystic liver disease
History of hematuria
Chronic anemia
-Hemoglobin stable at 11.9
Mild thrombocytopenia unclear etiology
-Stable
GERD
-Continue omeprazole
Hyperlipidemia
-Continue statin
Gout
-Continue probenecid, prednisone
History of shingles
History of right hydrocele
History of left rectus sheath hematoma
History of C. difficile
Full code
DVT prophylaxis-heparin
Regular diet
Anticipated Discharge: 24 - 48 hours
Subjective/Interval History
-
Date of Service: June 11, 2023
Patient had a very restless night developed increasing respiratory distress and had to be given a dosage of IV Lasix still has not voided but is feeling symptomatically better
Objective Data
-
Labs:
Laboratory Results
06/11/23
03:02
WBC 10.9 H
Hgb 12.3 L
Hct 36.5 L
Plt Count 114 L
Sodium 136
Potassium 4.6
Chloride 106
Carbon Dioxide 23
BUN 51 H
Creatinine 2.4 H
Glucose 156 H
Calcium 10.0
Vital Signs:
Vital Signs
Temp Pulse Resp BP Pulse Ox
98.1 F 88 15 109/65 95
06/11/23 07:11 06/11/23 07:25 06/11/23 07:25 06/11/23 07:00 06/11/23 07:25
I&O
06/10/23 06/11/23 06/12/23
06:59 06:59 06:59
Intake Total 520 / 520 480 / 480
Output Total 1775 / 1775
Balance 520 / 520 -1295 / -1295
Review of Systems
-
History Source: Patient
All other systems: Reviewed and negative
Constitutional: Reports No Symptoms
EENT: Reports No Symptoms Reported
Respiratory: Reports Trouble Breathing
Abdomen/GI: Reports No Symptoms
Physical Exam
-
General: Well Developed
HEENT: Normocephalic
Respiratory: Rales and Decreased Breath Sounds (Specially right base)
Cardiac: Regular Rhythm and Other (Pericardial drain emanating from underneath left nipple/drain output of 700 cc of sanguinous return)
GI: Soft, Nontender and Nondistended
Skin: Warm
Neuro: Awake and Alert
Psych: Calm
Data Reviewed
-
Total Time Spent with Patient (in minutes): 56
Labs: Labs Reviewed by me (White count 10.9/platelets stable at 114/hemoglobin actually shantelle from 10.6-12.3/creatinine decreased to 2.4)
[2023-06-11 07:55] LABS: Body Fluid Lymphocytes 5 %; Body Fluid Macrophages 88 %; Body Fluid Mesothelials 7 %
--- NOTE | 2023-06-11 08:17 | PN.CDI ---
CDI
- -
CDI:
Physician Documentation Request
Admit Date: 06/09/23 16:52
Dear Doctor Nazia,
Please review the following and provide your response in the progress notes.
Clinical Indicators:
06/11/23 04:22 - Patient Care Note
#C/o 'I can't take a deep breath'. Pulse ox 89% increased O2 to 6L.
#Patient remained 91% on 6L. PA instructed RN to
#...place patient on 15L of non rebreather along w/ 6L of O2. Patient currently sating 98%
#Still reports having difficulty breathing, but currently sating 97% on 6L O2 and 15L NRB.
Cardiology, PN, 06/10
#...moderate distress, diaphoretic and c/o SOB. pOx 89% on 2L, 91% on 6L.
#He was on RA on . .
#-CXR this am appears worse with cephalization and increased RLL opacity
#...- ? increased effusion vs atelectasis.
PN, 06/10
#Patient had a very restless night developed increasing respiratory distress
#...and had to be given a dosage of IV Lasix still has not voided
#...but is feeling symptomatically better
Please clarify which of the following accurately represents the patient's respiratory status:
Acute respiratory failure
Acute respiratory distress
Hypoxia
Other(please specify)
Additional information for Respiratory Failure:
Recognized criteria for Respiratory Failure (Source: [facility] Dec 2012)
Symptoms Please indicate type if known
1. Tachypnea, SOB, dyspnea Hypoxic
2. Use of accessory muscles Hypercapnic
3. Pallor or cyanosis Hypoxic and Hypercapnic
4. Anxiety or restlessness
5. Unable to speak in full sentences
Supplemental O2 of > 40% (5LPM) Intubation is not required
Use of terms such as suspected, likely, concern for, or probable (associated with a specific diagnosis that is being evaluated, monitored, or treated as if it exists) are acceptable and can be coded in the inpatient setting, when documented at the
time of discharge.
Thank you,
Acacia Sandhu RN BSN CCDS
CDI Specialist
please contact via tiger text
Please use your independent medical judgment in providing your response.
[2023-06-11] MEDS: PROTONIX 40 MG PO (08:37)
[2023-06-11] MEDS: DELTASONE 5 MG PO (08:37)
[2023-06-11] MEDS: BENEMID 500 MG PO ×2 (08:38→20:51)
[2023-06-11] MEDS: THERAGRAN 1 TABLET PO (08:38)
[2023-06-11] MEDS: PROGRAF 2 MG PO ×2 (08:39→20:51)
[2023-06-11] MEDS: HEPARIN SC (09:02)
--- NOTE | 2023-06-11 09:17 | W.CON.NEPH ---
Consultation
-
Date/Time Consultation Requested: 06/11/2023 7:00 AM
Date/Time Consultation Performed: 06/11/2023 9:00 AM
Requesting Provider: varun
Performing Provider: dolores
Reason for Consultation: CKD/renal tranplant
Medical History
-
Chief Complaint: Chronic kidney disease/history of renal transplant
History of Present Illness:
The patient is a 68-year-old male who underwent renal transplant in secondary to polycystic kidney disease and has known baseline chronic kidney disease stage IIIb. In reference to his kidney transplant ( which was performed at [facility] in 2001)he is
maintained on tacrolimus and low-dose prednisone. He is chronically maintained on Eliquis in the setting of his DVT. The patient has a history of hypertension for which he has been maintained on a multidrug regimen which consist of atenolol
doxazosin hydralazine losartan. He is chronically maintained on torsemide for his congestive heart failure history. He presented to the hospital with increasing shortness of breath a few days prior and eventually underwent pericardial centesis of
approximately 910 cc in the setting of a pericardial effusion. His creatinine on admission was 2.7 . Following his pericardiocentesis his creatinine is now down to 2.4 but we were consulted for decreasing urine output postprocedure.
Past Medical History
Right thoracic shingles
Living unrelated kidney transplant February 2001 at [facility]
Polycystic kidney disease
Polycystic liver disease
CKD 3b baseline creatinine 1.9 mg/DL (presumably calcineurin inhibitor nephrotoxicity)
E. coli urosepsis with bacteremia February 2022
Gabapentin induced nausea, anorexia, diarrhea
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
Primary hypertension
GERD
Gout
Remote Yxatk-Aclyyjrmp-Qogza syndrome
Right hydrocele
Left rectus sheath hematoma November 2021
Small chronic pericardial effusion
Thrombocytopenia, etiology uncertain though appears chronic
History of pericardial and pleural effusion
Social History
Tobacco: Non-Smoker
Alcohol: Occasional
Family History
Mother had end-stage renal disease
Daughter with chronic kidney disease
Allergies / Home Medications
Allergy/AdvReac Type Severity Reaction Status Date / Time
No Known Allergies Allergy Verified 08/08/22 03:16
�Medication �Instructions �Recorded �Confirmed �Type
atenolol 25 mg tablet 25 mg PO BID Blood pressure 03/13/22 06/09/23 History
calcium carbonate 600 mg-vitamin 2 tab PO BID Supplement 03/13/22 06/09/23 History
D3 10 mcg (400 unit) tablet
(Calcium 600 + D(3))
cetirizine 10 mg tablet (Zyrtec) 10 mg PO DAILYPRN PRN allergies 03/13/22 06/09/23 History
omeprazole 20 mg tablet,delayed 20 mg PO DAILY Gastrointestinal 03/13/22 06/09/23 History
release issue
prednisone 5 mg tablet 5 mg PO DAILY Anti-inflammatory 03/13/22 06/09/23 History
probenecid 500 mg tablet 500 mg PO BID Gout 03/13/22 06/09/23 History
simvastatin 20 mg tablet (Zocor) 20 mg PO QPM High cholesterol 03/13/22 06/09/23 History
tacrolimus 1 mg capsule, 2 mg PO Q12 Autoimmune disorder 03/13/22 06/09/23 History
immediate-release
therapeutic multivitamin 1 tab PO DAILY Supplement 03/13/22 06/09/23 History
doxazosin 8 mg tablet 8 mg PO QPM Blood Pressure 06/09/23 06/09/23 History
fluticasone furoate 100 1 inh inhalation R DAILY 06/09/23 06/09/23 History
mcg-vilanterol 25 mcg/dose Lung/Breathing Issues
inhalation powder (Breo Ellipta)
hydralazine 25 mg tablet 25 mg PO BID Blood Pressure 06/09/23 06/09/23 History
losartan 25 mg tablet 25 mg PO DAILY Blood Pressure 06/09/23 06/09/23 History
torsemide 10 mg tablet 10 mg PO DAILY FLUID EXCESS 06/09/23 06/09/23 History
apixaban 5 mg tablet (Eliquis) 5 mg PO BID Blood Clot 06/10/23 06/09/23 History
Prevention/Tx
Review of Systems
-
History Source: Patient
All other systems: Negative unless noted
Constitutional: No Symptoms
EENT: No Symptoms
Respiratory: Cough and Trouble Breathing
Cardiac: Chest Pain and Other (Pericardial drain)
Abdomen/GI: No Symptoms
: Other (Decreased urine output overnight)
Musculoskeletal: No Symptoms
Skin: No Symptoms
Neurological: No Symptoms
Endocrine: No Symptoms
Hematologic/Lymphatic: No Symptoms
Physical Exam
Vital Signs
Vital Signs
Temp Pulse Resp BP Pulse Ox
98.1 F 88 15 109/65 95
06/11/23 07:11 06/11/23 07:25 06/11/23 07:25 06/11/23 07:00 06/11/23 07:25
Lab Results
06/11/23 03:02
06/11/23 03:02
WBC 10.9 10^3/uL (4.8-10.8) H 06/11/23 03:02
RBC 3.96 10^6/uL (4.70-6.10) L 06/11/23 03:02
Hgb 12.3 g/dL (13.0-18.0) L 06/11/23 03:02
Hct 36.5 % (39.0-52.0) L 06/11/23 03:02
Plt Count 114 10^3/uL (130-400) L 06/11/23 03:02
Sodium 136 mmol/L (135-145) 06/11/23 03:02
Potassium 4.6 mmol/L (3.5-5.1) 06/11/23 03:02
Chloride 106 mmol/L (98-107) 06/11/23 03:02
Carbon Dioxide 23 mmol/L (22-30) 06/11/23 03:02
BUN 51 mg/dl (9-20) H 06/11/23 03:02
Creatinine 2.4 mg/dL (0.7-1.3) H 06/11/23 03:02
eGFR 28.67 06/11/23 03:02
Glucose 156 mg/dl (70-99) H 06/11/23 03:02
Calcium 10.0 mg/dl (8.4-10.2) 06/11/23 03:02
Albumin 2.9 g/dl (3.5-5.0) L 06/10/23 04:11
Physical Exam
General: AOx3, Nontoxic and Other (Mild respiratory distress)
HEENT: PERRL, EOMI, Anicteric, Conjunctivae Clear, Ear/Nose Intact, Hearing Normal, Oropharynx Clear/Moist, Dentition Intact, Facial Symmetry, Neck Supple, Trachea Midline, No JVD and No Thyromegaly
Respiratory: Normal Excursion and Other (Coarse breath sounds with decreased breath sounds to bases)
Cardiac: S1/S2 and Regular Rate/Rhythm (Distant heart sound)
Breast: Deferred by me
Abdomen: Soft, Nontender, Nondistended, Normal Bowel Sounds and No Hepatosplenomegaly
Rectal: Deferred by Provider
Genito-urinary: No Costovertebral Tender
Musculoskeletal: No Clubbing, No Cyanosis and No Edema
Skin: No Rash
Neuro: Nonfocal/Grossly Intact, CN II-XII (Intact) and Strength (Musculoskeletal exam 5 out of 5 both upper and lower extremities)
Hematologic/Lymphatic: No Cervical Lymphadenopathy, No Submandibular Lymphadenopathy and No Supraclavicular Lymphadenopathy
Psych: Mood/afflect pleasant, Insight/judgement good and Appropriate
Data Reviewed
-
Radiology: Image Personally Visualized and interpreted (Chest x-ray personally reviewed enlarged heart with bilateral lobe opacity)
Medical Tests (Nuc Med, Echo etc): Other (EKG report reviewed sinus rhythm with inferior infarct pattern at 71 beats per)
Labs: Labs Reviewed by me (BMP, CBC)
Old Records: Reviewed (Reviewed old consult from July 2022 for renal transplant in electronic medical)
Assessment/Plan
-
Impression:
Pericardial effusion status post pericardiocentesis ~900cc
Chronic kidney disease stage IIIb-IV
Left living unrelated kidney transplant February 2001 at [facility].
Polycystic kidney disease.
Polycystic liver disease.
Bilateral lower extremity DVT x3 with recurrence off
anticoagulation, hence lifelong Eliquis.
Primary hypertension.
GERD.
Gout.
Remote Dpemm-Oiwzxshfz-Coott syndrome.
Right hydrocele.
Left rectus sheath hematoma November 2021.
Small chronic pericardial effusion.
Thrombocytopenia, etiology uncertain, though appears chronic.
Plan:
-Maintain current immunosuppression in setting of renal transplant
-Holding all antihypertensives in setting of hypotension
-Urgent repeat cardiac echo to assess for possible hemo tamponade
-Creatinine at baseline
-Closely monitor urine output, IV Lasix was provided today, bladder scan without significant postvoid residual
-Pericardial effusions of hemodynamic significance usually potentially prerenal insults
-Follow BMP
--- NOTE | 2023-06-11 09:23 | PTCARENOTE ---
Assumed care of pt from night RN. Pt received awake and allert, Ox3. VSS, CM shows NSR 80's. Pt presently on NRB at 15 l/as well as 6L nc with POX of 99%. NRB removed and pt POX on 4 liters is 94%. All B/P meds on hold per Dr. Nixon for now
as B/P is 90-100 systolic and normally runs 160's. 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 Pericardial drain full, changed out by Dr. Nixon all ordered pericardial fluid samples obtained and sent to lab. Stat EKG and labs obtained and sent to lab. Pt denies any
pain or discomfort at this time K-pad applied to upper shoulders.
[2023-06-11 10:09] LABS: Hematocrit 35.1 % (39.0-52.0); Hemoglobin 11.7 g/dL (13.0-18.0)
[2023-06-11] MEDS: COZAAR PO (10:12)
[2023-06-11] MEDS: APRESOLINE PO (10:12)
[2023-06-11] MEDS: DEMADEX PO (10:12)
[2023-06-11] MEDS: TENORMIN PO (10:12)
--- NOTE | 2023-06-11 10:18 | W.PN.CARDCBS ---
Today's Communication / Plan
-
See plan
Impression / Plan
-
PCP: Dr. Khan
Nephrology: Dr. Flores locally, [place] for transplant care
Pulm: Dr. Seo
Impression:
Pericardial effusion
SOB and TARANGO
CKD 3b to 4
ESRD secondary to polycystic kidney disease
s/p living unrelated renal transplant at [place] 2001
Recurrent squamous cell skin cancers, scalp, neck, and face s/p Mohs procedures
Hepatic cysts.
Recurrent lower extremity DVT
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
chronic Eliquis OAC since 2014, attempted to d/c in 2020 and recurred with DVT so now on lifelong OAC
Hypertension.
Reported h/o Ehfcj-Punvnmgmv-Xefbe syndrome.
Hypercholesterolemia.
h/o hepatitis A.
h/o left rectus sheath hematoma November of 2021.
E. coli urosepsis with bacteremia February 2022.
Echo 08/10/22: EF 65-70%, trace MR, trace to mild pericardial effusion
Echo 06/09/23: EF 60%, normal RV size and function, mild MR, mild TR, large circumferential pericardial effusion with evidence of hemodynamic compromise, there is evidence of RV chamber collapse, borderline dilated aortic root at 3.8 cm.
Plan:
Overnight shortness of breath with increased pericardial drainage following pericardiocentesis status post IV Lasix.
-Approximately 930 cc bloody pericardial fluid in container
-Container changed with interventional cardiology. With new container fluid was now serosanguineous and minimal.
-Continue to monitor pericardial fluid output
-Hemoglobin stable, previously 10.6 on 06/09, this morning 12.3. Repeat hemoglobin at 10 AM 11.7
-Stat bedside echocardiogram with overall preserved biventricular size and systolic function with trivial pericardial effusion. No Doppler evidence to suggest communication with ventricle and pericardial space.
-Blood pressures had been chronically hypertensive now hypotensive not requiring pressors. All antihypertensives are held
-Holding anticoagulants
-Given change in pericardial fluid will resend for analysis
-Repeat chest x-ray
-Given immunocompromise state monitor closely for infection
Chronic kidney disease with history of polycystic kidney disease and kidney transplant in 2001 at [facility]
-Decreased urine output with relatively stable renal function
-Nephrology consulted
-Hold all antihypertensive therapy
-Monitor urine output
-Follow BMP
History of recurrent DVT on Eliquis now held
-Will resume anticoagulation when able
HPI: Patient came to [facility] today after an outpatient echo showed pericardial effusion. Patient had an admission to 08/08/22 until 08/17/22 for sepsis and C diff. He had an echo that admission as noted above. Patient says that he was feeling more SOB
over the last month and his PCP ordered a CT chest and had him see Pulm. Patient started on an inhaler and felt better. CT showed a pericardial effusion and patient was sent for an echo that showed a large pericardial effusion with evidence of RV
chamber collapse. Patient was sent to [facility]. He has a h/o RLE DVT in 2009 and was treated with warfarin. 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 In 2014 he transitioned to Eliquis and
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 He held Eliquis for 1 month and on routine LE u/s was noted to have a LLE DVT and Eliquis was resumed. No FH of clotting disorders. He has not had
hematologic testing. He also has a h/o PCKD and had a renal transplant in 2001. Cre has been worse but no recent renal biopsy. He follows at [place].
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
Subjective
Date of Service: June 11, 2023
Seen and examined multiple times throughout the day. Case discussed with nephrology, and interventional cardiology. Patient overall feels well and denies chest pain or pressure or dizziness. Still reports shortness of breath and requiring nasal
cannula O2. Complaining of pain around drainage site.
Objective
Labs:
06/11/23 09:58
06/11/23 03:02
Labs
Hgb 11.7 g/dL (13.0-18.0) L 06/11/23 09:58
Hct 35.1 % (39.0-52.0) L 06/11/23 09:58
Plt Count 114 10^3/uL (130-400) L 06/11/23 03:02
PT 18.1 Sec (11.4-14.6) H 06/09/23 15:18
INR 1.49 06/09/23 15:18
APTT 32.6 Sec (23.4-35.0) 06/09/23 15:18
Sodium 136 mmol/L (135-145) 06/11/23 03:02
Potassium 4.6 mmol/L (3.5-5.1) 06/11/23 03:02
BUN 51 mg/dl (9-20) H 06/11/23 03:02
Creatinine 2.4 mg/dL (0.7-1.3) H 06/11/23 03:02
Glucose 156 mg/dl (70-99) H 06/11/23 03:02
Troponins
06/09/23
15:18
Troponin I < 0.012
Vital Signs and I&O:
Vital Signs
Temp Pulse Resp BP Pulse Ox
98.1 F 88 15 109/65 95
06/11/23 07:11 06/11/23 07:25 06/11/23 07:25 06/11/23 07:00 06/11/23 07:25
Vital Signs
Temp Pulse Resp BP Pulse Ox
98.1 F 88 15 109/65 95
06/11/23 07:11 06/11/23 07:25 06/11/23 07:25 06/11/23 07:00 06/11/23 07:25
Intake & Output
06/09/23 06/10/23 06/11/23 06/12/23
06:59 06:59 06:59 06:59
Intake Total 520 / 520 480 / 480
Output Total 1775 / 1775
Balance 520 / 520 -1295 / -1295
Physical Exam
Physical Exam
GEN: NAD, AAOx3
HEENT: EOMI
LUNGS: Decreased BS at bases without wheeze
CV: Reg, S1/S2, no murmur; positive pericardial drain
ABD: ND
EXT: No edema
[2023-06-11 10:47] LABS: Body Fluid Glucose 77 mg/dl; Body Fluid Protein 4.7 g/dl
[2023-06-11 10:53] LABS: Body Fluid LDH 1643 U/L
[2023-06-11 11:11] LABS: Body Fluid Hematocrit 6.3 %; Body Fluid WBC 8696 /CUMM
[2023-06-11 11:22] LABS: Body Fluid Second Tech EF
[2023-06-11 12:35] LABS: Body Fluid Granulocytes 91 %; Body Fluid Macrophages 9 %
[2023-06-11] MEDS: PERCOCET 5/325 1 TABLET PO (14:04)
--- NOTE | 2023-06-11 14:12 | PTCARENOTE ---
Percocet given as per MAR for 8/10 left chest pain.
--- NOTE | 2023-06-11 16:35 | CM ---
Reviewed chart. Tried to see him several times today. He was sleeping. Prior to admission he resides with his spouse in a two story home with three steps to enter. He has a full flight of steps to get to bedroom/full bathroom. He has a powder room
on the first floor. Prior to admission he was independent with ambulation and adls. He has a prescription plan and uses [facility]. Will need to see his current functional level to see if he will have any skilled care needs. Medical work-up in
progress. The discharge plan is to return home with his spouse and [facility] if indicated when medically stable.
[2023-06-11] MEDS: LIPITOR 10 MG PO (18:41)
--- NOTE | 2023-06-11 20:33 | PTCARENOTE ---
NSR. VSS. 4L NC. Pericardial bulb drain intact. Pt transproted to Xray. Denies pain. Family at bedside, questions answered.
[2023-06-12] VITALS (8 sets, daily range): BP systolic 111–149; BP diastolic 69–88; BMI 22.2
[2023-06-12 06:06] LABS: Red Cell Dist. Width 16.8 % (11.5-14.5)
[2023-06-12 06:10] LABS: Blood Urea Nitrogen 67 mg/dl (9-20); Calcium 9.5 mg/dl (8.4-10.2); Carbon Dioxide 24 mmol/L (22-30); Chloride 104 mmol/L (98-107); Estimated Creatinine Clearance 25 ml/min; Glucose 123 mg/dl (70-99); Potassium 4.8 mmol/L (3.5-5.1); Sodium 135 mmol/L (135-145); eGFR 21.94
[2023-06-12 06:16] LABS: Hematocrit 34.2 % (39.0-52.0); Hemoglobin 11.4 g/dL (13.0-18.0); Mean Corpuscular Volume 94.2 fL (80.0-94.0); Red Blood Cell Count 3.63 10^6/uL (4.70-6.10)
[2023-06-12 06:17] LABS: Mean Corp Hgb Conc. 33.3 g/dL (33.0-37.0); Mean Corpuscular Hgb 31.4 pg (27.0-31.0); Mean Platelet Volume 12.8 fL (7.4-10.4); Platelet Count 98 10^3/uL (130-400)
--- NOTE | 2023-06-12 06:57 | W.PN.HOSP.TC ---
Addendum entered and electronically signed by Medardo Mandujano MD 06/12/23 14:12:
Acute respiratory distress
Original Note:
Today's Communication/Plan
-
Continue to hold antihypertensives as BP still soft but improved
Add incentive spirometry
Monitor BMP closely
Monitor for fever with his immunocompromise state
Await pericardiocentesis cultures
Assessment / Plan
Assessment / Plan
68-year-old male with past medical history of recurrent DVT on Eliquis, hypertension, asthma, pleural/pericardial effusion, CKD 3b, polycystic kidney disease status post kidney transplant, polycystic liver disease, GERD, hyperlipidemia, shingles,
CHF, chronic lymphedema, gout, Oeund-Bjpqdpkvf-Znzgv syndrome, right hydrocele, left rectus sheath hematoma, presenting with worsening shortness of breath over the past year. 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 Delgadillo who performed outpatient
echocardiogram showing large pericardial effusion and he was recommended to come to the hospital.
Patient denies any chest pain, dizziness or syncope. He has recently had some productive cough. He denies any fevers or chills. He has chronic lower extremity lymphedema but denies any weight gain and in fact has lost weight. 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
local cooler worker has had difficulty controlling his blood pressure which is been resistant to increasing dosing of doxazosin atenolol and hydralazine and losartan.. Follows with [facility] nephrology transplant specialist and was due to have
tacrolimus level done today at the [facility].
He drinks alcohol 4-5 times a month. He denies smoking.
Large pericardial effusion with evidence of RV chamber collapse
-EKG shows normal sinus rhythm
-Echo shows large circumferential pericardial effusion with evidence of hemodynamic compromise, evidence of right RV chamber collapse
-Chest x-ray shows a small right and minimal left pleural effusion with mild atelectasis in the lower lobe
-Cardiology consulted
-Held Eliquis
-Now status post pericardiocentesis with drain/increased white cells and LDH> exudative/cultures pending but no growth in the first 24 hours
# Mild Hypercalcemia likely secondary to calcium supplementation
-Hold calcium supplement
Chronic HFpEF
-Not in CHF exacerbation on presentation but seems to have increased right pleural effusion this morning
-Continue torsemide/received dosage of IV furosemide 60 mg overnight
=-Is increasing lower extremity edema over the last couple months may be in relation to also underlying RV failure
History of distant Wnogv-Jrzjnaujm-Lwqxc syndrome
History of recurrent DVT on Eliquis most recently in 2020
-Hold Eliquis
Asthma/allergies
-Continue Breo
-Continue cetirizine
Essential hypertension
-Continue hydralazine, losartan, doxazosin, atenolol
-With development of hypotension after pericardiocentesis BP meds on hold
-Defer gradual reintroduction to cardiology and nephrology
Polycystic kidney disease status post kidney transplant
-Continue tacrolimus,
-Was due for tacrolimus level today at the [facility]
-Sirolimus was recently discontinued in favor of increasing dosing of tacrolimus by [facility] nephrology
-Creatinine at baseline or improved on presentation
-Diminished urine output overnight and spite of IV Lasix/will get nephrology input
-Initiate bladder scanning and straight cath protocol
CKD 3B
-renal function
-BUN and creatinine has risen to 67/3.0
-Obtain bladder scan for PVR/no signs of retention
-Continue to monitor daily BMP
-Consult nephrology
Chronic lymphedema
Polycystic liver disease
History of hematuria
Chronic anemia
-Hemoglobin stable at 11.9
Mild thrombocytopenia unclear etiology
-Stable
GERD
-Continue omeprazole
Hyperlipidemia
-Continue statin
Gout
-Continue probenecid, prednisone
History of shingles
History of right hydrocele
History of left rectus sheath hematoma
History of C. difficile
Full code
DVT prophylaxis-heparin on hold
Regular diet
Anticipated Discharge: 24 - 48 hours
Subjective/Interval History
-
Date of Service: June 12, 2023
Had a more restful night continues to have some inspiratory discomfort and anterior chest referred. Minimal drainage from the pericardial drain
Objective Data
-
Labs:
Laboratory Results
06/12/23
04:51
WBC 10.0
Hgb 11.4 L
Hct 34.2 L
Plt Count 98 L
Sodium 135
Potassium 4.8
Chloride 104
Carbon Dioxide 24
BUN 67 H
Creatinine 3.0 H
Glucose 123 H
Calcium 9.5
Vital Signs:
Vital Signs
Temp Pulse Resp BP Pulse Ox
98.3 F 77 16 115/70 92
06/12/23 00:30 06/12/23 05:00 06/11/23 20:49 06/12/23 04:00 06/12/23 03:00
I&O
06/10/23 06/11/23 06/12/23
06:59 06:59 06:59
Intake Total 520 / 520 480 / 480 250 / 250
Output Total 1775 / 1775 1540 / 1540
Balance 520 / 520 -1295 / -1295 -1290 / -1290
Review of Systems
-
History Source: Patient
Constitutional: Reports No Symptoms; Denies Fever
EENT: Reports No Symptoms Reported
Respiratory: Reports Pleurisy
Cardiac: Reports Chest Pain (On deep inspiration)
Physical Exam
-
General: Well Developed
HEENT: Normocephalic
Respiratory: Clear to Auscultation
Cardiac: Regular Rhythm and Other (Pericardial drain with serosanguineous drainage minimal amount)
GI: Soft and Nontender
Neuro: Awake, Alert, Oriented, AO x 3 and No Motor Deficits
Data Reviewed
-
Total Time Spent with Patient (in minutes): 56
Diagnostic Radiology: Report Reviewed by me (Repeat chest x-ray yesterday afternoon showed some minimal atelectasis at the bases diminished opacities from prior study)
Labs: Labs Reviewed by me (Creatinine up to 3.0 from 2.4 with a BUN is risen to 67/pericardial fluid analysis noting 8600 white cells glucose 77 LDH 1600/culture results pending)
[2023-06-12] MEDS: PERCOCET 5/325 1 TABLET PO (07:08)
[2023-06-12] MEDS: SYMBICORT 80/4.5 MCG INHALER 2 PUFF INH ×2 (07:14→20:09)
[2023-06-12] MEDS: DEMADEX 10 MG PO (08:25)
[2023-06-12] MEDS: PROTONIX 40 MG PO (08:26)
[2023-06-12] MEDS: BENEMID 500 MG PO ×2 (08:26→20:57)
[2023-06-12] MEDS: THERAGRAN 1 TABLET PO (08:27)
[2023-06-12] MEDS: PROGRAF 2 MG PO ×2 (08:27→20:57)
[2023-06-12] MEDS: COLCHICINE 0.299999999999999989 MG PO (08:28)
[2023-06-12] MEDS: DELTASONE 5 MG PO (08:29)
--- NOTE | 2023-06-12 09:01 | PTCARENOTE ---
Assumed care of pt from night RN. Pt received awake and alert, Ox3. VSS, CM shows NSR 70's, POX 94% on 3 liters. Pericardial drain intact with minimal serosang drg. Pt c/o pain posterior chest and at Pericardial drain site; medicated with
Percocet as per APR after which he did receive relief. Overall he states he feels much better than yesterday. Son at bedside, (spent the night). All anti-hypertensives remain on hold, as well as anti-coagulants. Will continue to monitor closely.
--- NOTE | 2023-06-12 11:01 | W.PN.NEPH.PH ---
Today's Communication / Plan
-
Observe
Maintain diuretic
Follow BMP
Assessment/Plan
-
Impression:
Pericardial effusion status post pericardiocentesis ~900cc
Chronic kidney disease stage IIIb-IV
Left living unrelated kidney transplant February 2001 at [facility].
Polycystic kidney disease.
Polycystic liver disease.
Bilateral lower extremity DVT x3 with recurrence off
anticoagulation, hence lifelong Eliquis.
Primary hypertension.
GERD.
Gout.
Remote Ziwpo-Ksogtlqtm-Leolc syndrome.
Right hydrocele.
Left rectus sheath hematoma November 2021.
Small chronic pericardial effusion.
Thrombocytopenia, etiology uncertain, though appears chronic.
Plan:
-FIDE worsening with creatinine up to 3: Likely prerenal in mediated following hemodynamic compromise previous 24 hours, remains non oliguric
-Antihypertensives held and BP now with decent recovery with MAP >65
-Maintain current immunosuppression in setting of renal transplant
-Urgent repeat cardiac echo to assess for possible hemo tamponade: negative
-Pericardial effusions of hemodynamic significance usually potentially prerenal insults
-Follow BMP
-Patient at high risk with worsening acute kidney injury
-Okay to continue torsemide
-Remains nonoliguric, no evidence of obstructive uropathy
-
-
Date of Service: June 12, 2023
CC / HPI / ROS
-
Chief Complaint:
Acute kidney injury
History of Present Illness:
Creatinine worsening
Hemodynamically more stable off all antihypertensive
Review of Systems:
Nonoliguric
Pericardial drain in place
Some chest discomfort
No shortness of breath although on oxygen therapy
Labs
-
Labs:
WBC 10.0 10^3/uL (4.8-10.8) 06/12/23 04:51
RBC 3.63 10^6/uL (4.70-6.10) L 06/12/23 04:51
Hgb 11.4 g/dL (13.0-18.0) L 06/12/23 04:51
Hct 34.2 % (39.0-52.0) L 06/12/23 04:51
Plt Count 98 10^3/uL (130-400) L 06/12/23 04:51
Sodium 135 mmol/L (135-145) 06/12/23 04:51
Potassium 4.8 mmol/L (3.5-5.1) 06/12/23 04:51
Chloride 104 mmol/L (98-107) 06/12/23 04:51
Carbon Dioxide 24 mmol/L (22-30) 06/12/23 04:51
BUN 67 mg/dl (9-20) H 06/12/23 04:51
Creatinine 3.0 mg/dL (0.7-1.3) H 06/12/23 04:51
eGFR 21.94 06/12/23 04:51
Glucose 123 mg/dl (70-99) H 06/12/23 04:51
Calcium 9.5 mg/dl (8.4-10.2) 06/12/23 04:51
Albumin 2.9 g/dl (3.5-5.0) L 06/10/23 04:11
Physical Exam
-
Vital Signs:
Vital Signs
Temp Pulse Resp BP Pulse Ox
98.5 F 70 15 135/79 95
06/12/23 07:00 06/12/23 09:00 06/12/23 07:24 06/12/23 07:25 06/12/23 09:00
Cardiovascular:: Regular rate and rhythm
Respiratory:: Bilateral: Coarse (Decreased breath sounds to bases)
Lung Excursion:: Normal
Abdomen:: Nontender and Soft
Bowel Sounds:: Normal
Extremity Edema:: None: Bilateral:
Rainey Catheter: No
--- NOTE | 2023-06-12 13:03 | CON.ID ---
Consultation
-
Date/Time Consultation Requested: 06/12/2023 1042
Date/Time Consultation Performed: 06/12/23 1300
Requesting Provider: Dr. Doe
Performing Provider: Dr. Alex
Reason for Consultation: Pericardial effusion
Chief Complaint / Past History
History of Present Illness
Skip Ramos is a 68-year-old man being evaluated at the request of Dr. Doe regarding a pericardial effusion. History is obtained from chart review, along with patient review, history obtained from the patient's and son who are present
in the room.
The patient reports that he has had shortness of breath for approximately the past year. He has been followed by Pulmonary and has had workup for an ongoing cough and shortness of breath. He reports he recently underwent an echocardiogram which
showed a significant pericardial effusion and he was sent to the emergency room for further evaluation. Since admission, he has undergone pericardiocentesis with approximately 900 cc of bloody fluid recovered. Fluid analysis revealed a white
count, and Infectious Diseases is asked to comment upon need for antimicrobial therapy.
The patient denies any recent fevers or chills. He denies any prior pain. He he denies any night sweats. He denies any significant weight loss except for that over the past 2 weeks. He has been somewhat fatigued.
Past History
Additional Past Medical History:
Recurrent DVT (on Eliquis)
HTN
Asthma
Polycystic kidney disease; s/p transplant (2001)
Polycystic liver disease
GERD
Dyslipidemia
Hx of shingles
CHF
Gout
WPW syndrome
Lower extremity lymphedema
Additional Past Surgical History:
Renal transplant
Allergy History:
No Known Allergies Allergy (Verified 08/08/22 03:16)
Medications Reviewed: Yes
Current Antibiotics:
None
Social History
Tobacco: Non-Smoker
Alcohol: None
Drug: None
Review of Systems
Vital Signs
Temp Pulse Resp BP Pulse Ox
98.0 F 71 18 111/69 94
06/12/23 12:34 06/12/23 12:00 06/12/23 12:34 06/12/23 11:43 06/12/23 12:34
Physical Exam
Physical Exam
Constitutional: No Acute Distress, Comfortable and Non-toxic
Eyes: No Conjunctival Hemorrhage and Sclera Anicteric
Oral: No Thrush and No Ulcers
Cardiovascular: S1/S2 and Other (Pericardial drain in place. Bloody fluid in collection area); Negative S3/S4
Pulmonary: Clear; Negative Wheezes, Rales or Rhonchi
Gastrointestinal: Soft, Non Tender and Non Distended
Genito-Urinary: Negative Rainey
Extremities: Edema (Trace); Negative Cyanosis or Erythema
Neurological: Awake and Alert
Psychological: Calm
.
Lab / Diagnostic Study Results
06/12/23 04:51
06/12/23 04:51
Abs Immat Gran (auto) 0.0 10^3/uL (0-0.05) 06/10/23 04:11
Absolute Neuts (auto) 4.8 10^3/uL (1.4-6.5) 06/10/23 04:11
Absolute Lymphs (auto) 1.9 10^3/uL (1.2-3.4) 06/10/23 04:11
Absolute Monos (auto) 0.5 10^3/uL (0.1-0.6) 06/10/23 04:11
Absolute Basos (auto) 0.0 10^3/uL (0-0.2) 06/10/23 04:11
Immature Gran % 0.4 % (0-0.5) 06/10/23 04:11
Neutrophils % 64.7 % (42.2-75.2) 06/10/23 04:11
Lymphocytes % 26.1 % (20.5-51.1) 06/10/23 04:11
Monocytes % 6.3 % (1.7-9.3) 06/10/23 04:11
Eosinophils % 2.0 % (0-6) 06/10/23 04:11
Basophils % 0.5 % (0-2) 06/10/23 04:11
PT 18.1 Sec (11.4-14.6) H 06/09/23 15:18
INR 1.49 06/09/23 15:18
Microbiology Results
Micro:
06/10/23 10:14 Body Fluid Culture - Preliminary
Pericardial Fluid No Growth After 48 Hours
Gram Stain - Preliminary
06/11/23 10:08 Body Fluid Culture - Preliminary
Pericardial Fluid No Growth After 18-24 Hours
Gram Stain - Preliminary
06/10/23 10:15 Fungal Smear - Final
Pericardial Fluid No yeast or fungal elements seen.
06/11/23 10:08 Fungal Smear - Final
Pericardial Fluid No yeast or fungal elements seen.
06/11/23 10:08 Acid Fast Bacilli Smear - Pending
Pericardial Fluid Acid Fast Bacilli Culture - Pending
06/10/23 10:15 Fungal Culture - Preliminary
Pericardial Fluid Culture in progress.
Positive cultures are reported as soon as detected.
Final report to follow in four to five weeks.
06/10/23 10:14 Acid Fast Bacilli Smear - Pending
Pericardial Fluid Acid Fast Bacilli Culture - Pending
Imaging:
06/09/2023 ECHO: Normal LV ventricular size, wall thickness and systolic function. EF approximately 60%. Large circumferential pericardial effusion with evidence of hemodynamic compromise is noted. There is evidence of RV chamber collapse. Please
see full dictation for additional detail.
Assessment / Plan
Pericardial effusion
- s/p pericardiocentesis. Drain remains in place.
Recurrent DVT (on Eliquis)
HTN
Asthma
Polycystic kidney disease; s/p transplant (2001)
Polycystic liver disease
GERD
Dyslipidemia
Hx of shingles
CHF
Gout
WPW syndrome
Recommendations:
Cultures thus far negative.
Would continue to monitor off of antimicrobial therapy, as there does not appear to be any immediate need to start antibiotics.
AFB stain and culture has also been ordered, although this will take upwards of 8 weeks to be returned. Little clinical suspicion for TB at this time.
Follow white count temperature curve, along with pericardial drain output.
Care Review
Plan reviewed with: Physician (Cardiology; Nephrology)
--- NOTE | 2023-06-12 17:49 | W.PN.CARDCBS ---
Addendum entered and electronically signed by Ileana Doe DO 06/12/23 19:36:
Echocardiogram done 06/11/2023 did not transfer into [facility]. Will ask on Wednesday for study to be transferred over.
Conclusion:
Limited study to assess pericardial effusion.
Normal left ventricular size and systolic function. No regional wall motion abnormalities are seen. LV ejection fraction is 55-60% by visual assessment.
Trivial pericardial effusion.
Since echocardiogram June 10, 2023, large pericardial effusion has resolved
Original Note:
Today's Communication / Plan
-
Maintain pericardial drain and monitor output
Follow pericardial fluid cultures
Consult ID
Impression / Plan
-
PCP: Dr. Khan
Nephrology: Dr. Flores locally, [place] for transplant care
Pulm: Dr. Seo
Impression:
Pericardial effusion
SOB and TARANGO
CKD 3b to 4
ESRD secondary to polycystic kidney disease
s/p living unrelated renal transplant at [place] 2001
Recurrent squamous cell skin cancers, scalp, neck, and face s/p Mohs procedures
Hepatic cysts.
Recurrent lower extremity DVT
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
chronic Eliquis OAC since 2014, attempted to d/c in 2020 and recurred with DVT so now on lifelong OAC
Hypertension.
Reported h/o Bexkj-Wftiekzfy-Mbtlr syndrome.
Hypercholesterolemia.
h/o hepatitis A.
h/o left rectus sheath hematoma November of 2021.
E. coli urosepsis with bacteremia February 2022.
Echo 08/10/22: EF 65-70%, trace MR, trace to mild pericardial effusion
Echo 06/09/23: EF 60%, normal RV size and function, mild MR, mild TR, large circumferential pericardial effusion with evidence of hemodynamic compromise, there is evidence of RV chamber collapse, borderline dilated aortic root at 3.8 cm.
Plan:
Pericardial effusion status post pericardiocentesis with 910 cc of straw-colored pericardial fluid output 06/10/23
-Hemodynamics have improved following hypotension not requiring pressors following pericardiocentesis and bloody pericardial fluid output 06/09 --> 06/10
-Initial and repeat pericardial cultures pending; so far no growth.
-Discussed case with medicine and nephrology�given immunocompromise state and increased WBCs on pericardial effusion with 99 degree temp yesterday we will consult ID.
-Pericardial output from 06/10 to this morning 115 cc
-Will maintain pericardial drain and monitor output
-Hemoglobin stable
-Stat bedside echocardiogram 06/11/23 with overall preserved biventricular size and systolic function with trivial pericardial effusion. No Doppler evidence to suggest communication with ventricle and pericardial space.
-Holding anticoagulants-he does have a history of recurrent lower extremity DVT and will need to resume as soon as possible
Chronic kidney disease with history of polycystic kidney disease and kidney transplant in 2001 at [facility]
-Renal function slightly worse today, 3
-Nephrology consulted
-Blood pressures are improved; continue to hold all antihypertensive therapy
-Torsemide continued per nephrology
-Continue tacrolimus; level ordered today
-Monitor urine output
-Follow BMP
History of recurrent DVT on Eliquis now held
-Will resume anticoagulation when able
HPI: Patient came to [facility] today after an outpatient echo showed pericardial effusion. Patient had an admission to 08/08/22 until 08/17/22 for sepsis and C diff. He had an echo that admission as noted above. Patient says that he was feeling more SOB
over the last month and his PCP ordered a CT chest and had him see Pulm. Patient started on an inhaler and felt better. CT showed a pericardial effusion and patient was sent for an echo that showed a large pericardial effusion with evidence of RV
chamber collapse. Patient was sent to [facility]. He has a h/o RLE DVT in 2009 and was treated with warfarin. 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 In 2014 he transitioned to Eliquis and
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 He held Eliquis for 1 month and on routine LE u/s was noted to have a LLE DVT and Eliquis was resumed. No FH of clotting disorders. He has not had
hematologic testing. He also has a h/o PCKD and had a renal transplant in 2001. Cre has been worse but no recent renal biopsy. He follows at [place].
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
Subjective
Date of Service: June 12, 2023
Seen and examined. Patient overall feels better than yesterday and denies fevers or cough. Mild tenderness at site of pericardial drain without chest pain. No abdominal pain. He reports he is making adequate urine.
Objective
Labs:
06/12/23 04:51
06/12/23 04:51
Labs
Hgb 11.4 g/dL (13.0-18.0) L 06/12/23 04:51
Hct 34.2 % (39.0-52.0) L 06/12/23 04:51
Plt Count 98 10^3/uL (130-400) L 06/12/23 04:51
PT 18.1 Sec (11.4-14.6) H 06/09/23 15:18
INR 1.49 06/09/23 15:18
APTT 32.6 Sec (23.4-35.0) 06/09/23 15:18
Sodium 135 mmol/L (135-145) 06/12/23 04:51
Potassium 4.8 mmol/L (3.5-5.1) 06/12/23 04:51
BUN 67 mg/dl (9-20) H 06/12/23 04:51
Creatinine 3.0 mg/dL (0.7-1.3) H 06/12/23 04:51
Glucose 123 mg/dl (70-99) H 06/12/23 04:51
Vital Signs and I&O:
Vital Signs
Temp Pulse Resp BP Pulse Ox
98.7 F 73 16 143/78 94
06/12/23 16:25 06/12/23 16:23 06/12/23 16:25 06/12/23 16:23 06/12/23 16:25
Vital Signs
Temp Pulse Resp BP Pulse Ox
98.7 F 73 16 143/78 94
06/12/23 16:25 06/12/23 16:23 06/12/23 16:25 06/12/23 16:23 06/12/23 16:25
Intake & Output
06/10/23 06/11/23 06/12/23 06/13/23
06:59 06:59 06:59 06:59
Intake Total 520 / 520 480 / 480 250 / 250
Output Total 1775 / 1775 1540 / 1540
Balance 520 / 520 -1295 / -1295 -1290 / -1290
Physical Exam
Physical Exam
GEN: NAD, AAOx3
HEENT: EOMI
LUNGS: Decreased BS at bases without wheeze
CV: Reg, S1/S2, no murmur; positive pericardial drain
ABD: ND
EXT: No edema
[2023-06-12] MEDS: LIPITOR 10 MG PO (18:36)
--- NOTE | 2023-06-12 20:00 | PTCARENOTE ---
NSR 3L NC. VSS, BP increasing. Pericardial drain intact- serosanguinous fluid. Family at bedside. Assessment per nursing flowsheet.
[2023-06-13] VITALS (7 sets, daily range): BP systolic 125–164; BP diastolic 71–92; BMI 22.2
[2023-06-13 05:19] LABS: Hematocrit 33.7 % (39.0-52.0); Hemoglobin 11.5 g/dL (13.0-18.0); Mean Corp Hgb Conc. 34.1 g/dL (33.0-37.0); Mean Corpuscular Hgb 31.1 pg (27.0-31.0); Mean Corpuscular Volume 91.1 fL (80.0-94.0); Mean Platelet Volume 12.6 fL (7.4-10.4); Platelet Count 103 10^3/uL (130-400); Red Cell Dist. Width 16.6 % (11.5-14.5); White Blood Cell Count 8.5 10^3/uL (4.8-10.8)
[2023-06-13] MEDS: TYLENOL 650 MG PO (05:20)
[2023-06-13 06:02] LABS: Blood Urea Nitrogen 70 mg/dl (9-20); Calcium 9.6 mg/dl (8.4-10.2); Carbon Dioxide 22 mmol/L (22-30); Chloride 103 mmol/L (98-107); Estimated Creatinine Clearance 27 ml/min; Glucose 117 mg/dl (70-99); Potassium 4.5 mmol/L (3.5-5.1); Sodium 132 mmol/L (135-145); eGFR 23.83
--- NOTE | 2023-06-13 06:53 | W.PN.HOSP.TC ---
Today's Communication/Plan
-
Restart hydralazine
Restart losartan will defer to nephrology
Continue to withhold any antibiotics and ID following
Remains off Eliquis/treatment of pericardial drain and resumption Eliquis as per cardiology
Continue to monitor CBC and chemistries closely
Assessment / Plan
Assessment / Plan
68-year-old male with past medical history of recurrent DVT on Eliquis, hypertension, asthma, pleural/pericardial effusion, CKD 3b, polycystic kidney disease status post kidney transplant, polycystic liver disease, GERD, hyperlipidemia, shingles,
CHF, chronic lymphedema, gout, Nnxil-Imcmghwhp-Dyuwp syndrome, right hydrocele, left rectus sheath hematoma, presenting with worsening shortness of breath over the past year. Patient saw his regional medical director Dr. Delgadillo who performed outpatient
echocardiogram showing large pericardial effusion and he was recommended to come to the hospital.
Patient denies any chest pain, dizziness or syncope. He has recently had some productive cough. He denies any fevers or chills. He has chronic lower extremity lymphedema but denies any weight gain and in fact has lost weight. 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 Follows with [facility] [place] nephrology transplant specialist and was due to have
tacrolimus level done today at the [facility].
He drinks alcohol 4-5 times a month. He denies smoking.
Large pericardial effusion with evidence of RV chamber collapse
-EKG shows normal sinus rhythm
-Echo shows large circumferential pericardial effusion with evidence of hemodynamic compromise, evidence of right RV chamber collapse
-Follow-up echo shows only trivial pericardial effusion
-Chest x-ray shows a small right and minimal left pleural effusion with mild atelectasis in the lower lobe
-Cardiology consulted
-Held Eliquis/restart as per cardiology
-Now status post pericardiocentesis with drain/increased white cells and LDH> exudative/cultures pending but no growth in the first 24 hours
-ID consultation appreciated no criteria for antibiotics presently/culture results remain negative/little clinical suspicion for TB/no fever and normal stable white count
# Mild Hypercalcemia likely secondary to calcium supplementation
-Hold calcium supplement
Chronic HFpEF
-Not in CHF exacerbation on presentation but seems to have increased right pleural effusion this morning
-Continue torsemide/received dosage of IV furosemide 60 mg overnight
=-Is increasing lower extremity edema over the last couple months may be in relation to also underlying RV failure
History of distant Crsut-Uegurjozo-Vwprv syndrome
History of recurrent DVT on Eliquis most recently in 2020
-Hold Eliquis
Asthma/allergies
-Continue Breo
-Continue cetirizine
Essential hypertension
-Continue hydralazine, losartan, doxazosin, atenolol
-With development of hypotension after pericardiocentesis BP meds on hold
-Started back on torsemide yesterday June 11 and will reinitiate hydralazine at prior dosing
-Losartan still on hold
Polycystic kidney disease status post kidney transplant
-Continue tacrolimus,
-Was due for tacrolimus level today at the [facility]/drawn here
-Sirolimus was recently discontinued in favor of increasing dosing of tacrolimus by [facility] nephrology
-Creatinine at baseline or improved on presentation
-Initiate bladder scanning and straight cath protocol
-Torsemide restarted
CKD 3B
-renal function
-BUN and creatinine has risen to 67/3.0
-Obtain bladder scan for PVR/no signs of retention
-Continue to monitor daily BMP
-Consult nephrology
Chronic lymphedema
Polycystic liver disease
History of hematuria
Chronic anemia
-Hemoglobin stable at 11.9
Mild thrombocytopenia unclear etiology
-Stable
GERD
-Continue omeprazole
Hyperlipidemia
-Continue statin
Gout
-Continue probenecid, prednisone
History of shingles
History of right hydrocele
History of left rectus sheath hematoma
History of C. difficile
Full code
DVT prophylaxis-heparin on hold
Regular diet
Anticipated Discharge: 24 - 48 hours
Subjective/Interval History
-
Date of Service: June 13, 2023
No issues overnight uneventful denies cough or respiratory distress other than when he takes a deep breath using incentive spirometry
Objective Data
-
Labs:
Laboratory Results
06/13/23
05:03
WBC 8.5
Hgb 11.5 L
Hct 33.7 L
Plt Count 103 L
Sodium 132 L
Potassium 4.5
Chloride 103
Carbon Dioxide 22
BUN 70 H
Creatinine 2.8 H
Glucose 117 H
Calcium 9.6
Vital Signs:
Vital Signs
Temp Pulse Resp BP Pulse Ox
98.5 F 84 20 164/81 92
06/13/23 05:36 06/13/23 05:03 06/13/23 05:36 06/13/23 05:03 06/13/23 05:36
I&O
06/11/23 06/12/23 06/13/23
06:59 06:59 06:59
Intake Total 480 / 480 250 / 250 250 / 250
Output Total 1775 / 1775 1540 / 1540 770 / 770
Balance -1295 / -1295 -1290 / -1290 -520 / -520
Review of Systems
-
History Source: Patient
Constitutional: Reports Fatigue; Denies Fever
Cardiac: Reports Chest Pain (Anteriorly on inspiration)
Physical Exam
-
General: Well Developed
HEENT: Normocephalic
Respiratory: Clear to Auscultation
Cardiac: Regular Rhythm and Other (Pericardial drain with output in canister)
GI: Soft
Skin: Warm and IV Access / Catheter Site
Neuro: Awake, Alert, Oriented and AO x 3
Psych: Calm
Data Reviewed
-
Labs: Labs Reviewed by me (Creatinine 2.8/hemoglobin 11.5/white count 8.5)
[2023-06-13] MEDS: SYMBICORT 80/4.5 MCG INHALER 2 PUFF INH ×2 (07:56→20:41)
[2023-06-13] MEDS: DEMADEX 10 MG PO (09:48)
[2023-06-13] MEDS: THERAGRAN 1 TABLET PO (09:48)
[2023-06-13] MEDS: BENEMID 500 MG PO ×2 (09:48→20:19)
[2023-06-13] MEDS: PROTONIX 40 MG PO (09:48)
[2023-06-13] MEDS: PROGRAF 2 MG PO ×2 (09:48→20:19)
[2023-06-13] MEDS: APRESOLINE 50 MG PO ×2 (09:48→20:19)
[2023-06-13] MEDS: DELTASONE 5 MG PO (09:51)
--- NOTE | 2023-06-13 10:06 | W.PN.NEPH.PH ---
Today's Communication / Plan
-
Added back atenolol
Follow-up BMP
Check tacrolimus trough level in a.m.
Assessment/Plan
-
Impression:
Pericardial effusion status post pericardiocentesis ~900cc
Chronic kidney disease stage IIIb-IV (2.2-2.8)
Left living unrelated kidney transplant February 2001 at [facility].
Polycystic kidney disease.
Polycystic liver disease.
Bilateral lower extremity DVT x3 with recurrence off
anticoagulation, hence lifelong Eliquis.
Primary hypertension.
GERD.
Gout.
Remote Snmea-Tdhbqifrg-Mojqs syndrome.
Right hydrocele.
Left rectus sheath hematoma November 2021.
Small chronic pericardial effusion.
Thrombocytopenia, etiology uncertain, though appears chronic.
Plan:
-FIDE improved with creatinine down to 2.8: Likely prerenal in mediated following hemodynamic compromise previous 24 hours, remains non oliguric
-Adding back atenolol in addition to hydralazine today for increasing hypertension
-Maintain current immunosuppression in setting of renal transplant, will check tacrolimus level in a.m. at patient's request
-Urgent repeat cardiac echo to assess for possible hemo tamponade: negative
-Pericardial effusions of hemodynamic significance usually potentially prerenal insults
-Okay to continue torsemide, may give extra dose tomorrow as creatinine nadirs in setting of pleural effusion
-Remains nonoliguric, no evidence of obstructive uropathy
-
-
Date of Service: June 13, 2023
CC / HPI / ROS
-
Chief Complaint:
Acute kidney injury
History of Present Illness:
Creatinine improving to 2 point
Hemodynamically more stable , now elevating
Review of Systems:
Nonoliguric
Pericardial drain in place
Some chest discomfort
No shortness of breath although on oxygen therapy
Labs
-
Labs:
WBC 8.5 10^3/uL (4.8-10.8) 06/13/23 05:03
RBC 3.70 10^6/uL (4.70-6.10) L 06/13/23 05:03
Hgb 11.5 g/dL (13.0-18.0) L 06/13/23 05:03
Hct 33.7 % (39.0-52.0) L 06/13/23 05:03
Plt Count 103 10^3/uL (130-400) L 06/13/23 05:03
Sodium 132 mmol/L (135-145) L 06/13/23 05:03
Potassium 4.5 mmol/L (3.5-5.1) 06/13/23 05:03
Chloride 103 mmol/L (98-107) 06/13/23 05:03
Carbon Dioxide 22 mmol/L (22-30) 06/13/23 05:03
BUN 70 mg/dl (9-20) H 06/13/23 05:03
Creatinine 2.8 mg/dL (0.7-1.3) H 06/13/23 05:03
eGFR 23.83 06/13/23 05:03
Glucose 117 mg/dl (70-99) H 06/13/23 05:03
Calcium 9.6 mg/dl (8.4-10.2) 06/13/23 05:03
Albumin 2.9 g/dl (3.5-5.0) L 06/10/23 04:11
Physical Exam
-
Vital Signs:
Vital Signs
Temp Pulse Resp BP Pulse Ox
98.3 F 69 18 164/81 93
06/13/23 07:11 06/13/23 07:59 06/13/23 07:59 06/13/23 05:03 06/13/23 07:59
Cardiovascular:: Regular rate and rhythm
Respiratory:: Bilateral: Coarse (Decreased breath sounds to bases)
Lung Excursion:: Normal
Abdomen:: Nontender and Soft
Bowel Sounds:: Normal
Extremity Edema:: None: Bilateral:
Rainey Catheter: No
--- NOTE | 2023-06-13 11:52 | W.PN.CARDCBS ---
Today's Communication / Plan
-
Resume Eliquis anticoagulation for recurrent DVT
Monitor drain output and reassess in the morning
Resume antihypertensive therapy and monitor blood pressure trends
Impression / Plan
-
PCP: Dr. Khan
Nephrology: Dr. Flores locally, [place] for transplant care
Pulm: Dr. Seo
Impression:
Pericardial effusion
SOB and TARANGO
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
ESRD secondary to polycystic kidney disease
s/p living unrelated renal transplant at [place] 2001
Recurrent squamous cell skin cancers, scalp, neck, and face s/p Mohs procedures
Hepatic cysts.
Recurrent lower extremity DVT
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
chronic Eliquis OAC since 2014, attempted to d/c in 2020 and recurred with DVT so now on lifelong OAC
Hypertension.
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
Hypercholesterolemia.
h/o hepatitis A.
h/o left rectus sheath hematoma November of 2021.
E. coli urosepsis with bacteremia February 2022.
Echo 08/10/22: EF 65-70%, trace MR, trace to mild pericardial effusion
Echo 06/09/23: EF 60%, normal RV size and function, mild MR, mild TR, large circumferential pericardial effusion with evidence of hemodynamic compromise, there is evidence of RV chamber collapse, borderline dilated aortic root at 3.8 cm.
Echocardiogram done 06/11/2023 did not transfer into [facility]. Will ask on Wednesday for study to be transferred over.
Conclusion:
Limited study to assess pericardial effusion.
Normal left ventricular size and systolic function. No regional wall motion abnormalities are seen. LV ejection fraction is 55-60% by visual assessment.
Trivial pericardial effusion.
Since echocardiogram June 10, 2023, large pericardial effusion has resolved
Plan:
Pericardial effusion status post pericardiocentesis with 910 cc of straw-colored pericardial fluid output 06/10/23
-Hemodynamics have improved following hypotension not requiring pressors following pericardiocentesis and bloody pericardial fluid output 06/09 --> 06/10
-Initial and repeat pericardial cultures pending; so far no growth.
-Appreciate ID input�continue to monitor off of antimicrobial therapy
-Pericardial output last 24 hours 20 cc
-Will restart Eliquis for recurrent history of DVT
-Will maintain pericardial drain and monitor output on Eliquis
-Hemoglobin stable; continue to monitor after starting Eliquis
-Bedside echocardiogram 06/11/23 with overall preserved biventricular size and systolic function with trivial pericardial effusion. No Doppler evidence to suggest communication with ventricle and pericardial space.
Chronic kidney disease with history of polycystic kidney disease and kidney transplant in 2001 at [facility]
-Renal function has stabilized, 2.8 today
-Nephrology consulted
-Blood pressures are improved; restarting atenolol and hydralazine. Losartan and doxazosin continue to be held.
-Torsemide continued per nephrology
-Continue tacrolimus; level ordered yesterday and is pending
-Monitor urine output
-Follow BMP
History of recurrent DVT on Eliquis held since 06/08
-Will resume oral anticoagulation today
HPI: Patient came to [facility] today after an outpatient echo showed pericardial effusion. Patient had an admission to 08/08/22 until 08/17/22 for sepsis and C diff. He had an echo that admission as noted above. Patient says that he was feeling more SOB
over the last month and his PCP ordered a CT chest and had him see Pulm. Patient started on an inhaler and felt better. CT showed a pericardial effusion and patient was sent for an echo that showed a large pericardial effusion with evidence of RV
chamber collapse. Patient was sent to [facility]. He has a h/o RLE DVT in 2009 and was treated with warfarin. 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 In 2014 he transitioned to Eliquis and
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 He held Eliquis for 1 month and on routine LE u/s was noted to have a LLE DVT and Eliquis was resumed. No FH of clotting disorders. He has not had
hematologic testing. He also has a h/o PCKD and had a renal transplant in 2001. Cre has been worse but no recent renal biopsy. He follows at [place].
Progress Note - Cardiac Exercise Physiologist
Subjective
Date of Service: June 13, 2023
Seen and examined. Patient overall feels better and blood pressures are improving. Complaining of pain around pericardial drain site and shoulder pain.
Objective
Labs:
06/13/23 05:03
06/13/23 05:03
Labs
Hgb 11.5 g/dL (13.0-18.0) L 06/13/23 05:03
Hct 33.7 % (39.0-52.0) L 06/13/23 05:03
Plt Count 103 10^3/uL (130-400) L 06/13/23 05:03
PT 18.1 Sec (11.4-14.6) H 06/09/23 15:18
INR 1.49 06/09/23 15:18
APTT 32.6 Sec (23.4-35.0) 06/09/23 15:18
Sodium 132 mmol/L (135-145) L 06/13/23 05:03
Potassium 4.5 mmol/L (3.5-5.1) 06/13/23 05:03
BUN 70 mg/dl (9-20) H 06/13/23 05:03
Creatinine 2.8 mg/dL (0.7-1.3) H 06/13/23 05:03
Glucose 117 mg/dl (70-99) H 06/13/23 05:03
Vital Signs and I&O:
Vital Signs
Temp Pulse Resp BP Pulse Ox
97.5 F 80 20 150/87 93
06/13/23 11:47 06/13/23 10:00 06/13/23 11:47 06/13/23 07:11 06/13/23 11:47
Vital Signs
Temp Pulse Resp BP Pulse Ox
97.5 F 80 20 150/87 93
06/13/23 11:47 06/13/23 10:00 06/13/23 11:47 06/13/23 07:11 06/13/23 11:47
Intake & Output
06/11/23 06/12/23 06/13/23 06/14/23
06:59 06:59 06:59 06:59
Intake Total 480 / 480 250 / 250 250 / 250
Output Total 1775 / 1775 1540 / 1540 770 / 770
Balance -1295 / -1295 -1290 / -1290 -520 / -520
Physical Exam
Physical Exam
GEN: NAD, AAOx3
HEENT: EOMI
LUNGS: Decreased BS at bases without wheeze
CV: Reg, S1/S2, no murmur; positive pericardial drain
ABD: ND
EXT: No edema
[2023-06-13 12:54] LABS: Tacrolimus (Prograft - FK506) 7.5 ng/mL
[2023-06-13] MEDS: LIPITOR 10 MG PO (18:27)
--- NOTE | 2023-06-13 20:00 | PTCARENOTE ---
NSR 3L NC. VSS, some home BP medications restarted today. Pericardial drain intact- minimal serosanguinous fluid. Family at bedside - questions answered. Assessment per nursing flowsheet
[2023-06-13] MEDS: ELIQUIS 5 MG PO (20:18)
[2023-06-13] MEDS: TENORMIN 25 MG PO (20:19)
[2023-06-14] VITALS (7 sets, daily range): BP systolic 128–150; BP diastolic 77–101; BMI 22.3
[2023-06-14] MEDS: TYLENOL 650 MG PO ×2 (01:06→23:38)
[2023-06-14 05:28] LABS: Hematocrit 31.4 % (39.0-52.0); Hemoglobin 10.6 g/dL (13.0-18.0); Mean Corp Hgb Conc. 33.8 g/dL (33.0-37.0); Mean Corpuscular Hgb 31.4 pg (27.0-31.0); Mean Corpuscular Volume 92.9 fL (80.0-94.0); Platelet Count 112 10^3/uL (130-400); Red Blood Cell Count 3.38 10^6/uL (4.70-6.10); Red Cell Dist. Width 16.5 % (11.5-14.5); White Blood Cell Count 6.9 10^3/uL (4.8-10.8)
[2023-06-14 06:00] LABS: Blood Urea Nitrogen 71 mg/dl (9-20); Carbon Dioxide 24 mmol/L (22-30); Chloride 104 mmol/L (98-107); Estimated Creatinine Clearance 28 ml/min; Glucose 129 mg/dl (70-99); Potassium 4.6 mmol/L (3.5-5.1); Sodium 130 mmol/L (135-145); eGFR 24.89
[2023-06-14] MEDS: SYMBICORT 80/4.5 MCG INHALER 2 PUFF INH ×2 (08:15→19:22)
--- NOTE | 2023-06-14 08:29 | W.PN.HOSP.TC ---
Today's Communication/Plan
-
Anticoagulation will be challenge
Please see below
Assessment / Plan
Assessment / Plan
Physical Exam
General: Well Developed
HEENT: Normocephalic
Respiratory: Clear to Auscultation
Cardiac: Regular Rhythm and Other (Pericardial drain with output in canister)
GI: Soft and nontender. Positive bowel sounds.
Skin: Warm. Dry.
Neuro: Awake, Alert, Oriented and AO x 3
Psych: Calm
Assessment/Plan
68-year-old male with past medical history of recurrent DVT on Eliquis, hypertension, asthma, pleural/pericardial effusion, CKD 3b, polycystic kidney disease status post kidney transplant, polycystic liver disease, GERD, hyperlipidemia, shingles,
CHF, chronic lymphedema, gout, Kvjfw-Mcturcvjk-Lrqat syndrome, right hydrocele, left rectus sheath hematoma, presented with worsening shortness of breath over the past year. Patient saw his environmental solutions engineer Dr. Delgadillo who performed outpatient
echocardiogram showing large pericardial effusion and he was recommended to come to the hospital.
Patient denied any chest pain, dizziness or syncope. He has recently had some productive cough. He denies any fevers or chills. He has chronic lower extremity lymphedema but denies any weight gain and in fact has lost weight. 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
local relationship advisor has had difficulty controlling his blood pressure which is been resistant to increasing dosing of doxazosin atenolol and hydralazine and losartan.. Follows with Alicia Conover nephrology transplant specialist and was due to have
tacrolimus level done today at the [facility].
He drinks alcohol 4-5 times a month. He denies smoking.
Large pericardial effusion with evidence of RV chamber collapse
-Echo shows large circumferential pericardial effusion with evidence of hemodynamic compromise, evidence of right RV chamber collapse
-Follow-up echo shows only trivial pericardial effusion
-Chest x-ray shows a small right and minimal left pleural effusion with mild atelectasis in the lower lobe
-Cardiology consulted
-Held Eliquis again
-Patient says Lovenox is not an option
-Will need Hematology OR Pulmonary consult to address (given anticoagulation is needed for recurrent DVT but increased bleeding from anticoagulation):
--- 1) Is a hypercoagulable workup is needed
--- 2) IVC filter consideration (but patient may need to be off oral anticoagulation for at least a week or so before restarting)
-Now status post pericardiocentesis with drain/increased white cells and LDH> exudative/cultures pending but no growth
-ID consultation appreciated no criteria for antibiotics presently/culture results remain negative/little clinical suspicion for TB/no fever and normal stable white count
# Mild Hypercalcemia likely secondary to calcium supplementation
-Hold calcium supplement
Chronic HFpEF
-Not in CHF exacerbation on presentation but seems to have increased right pleural effusion this morning
-Continue torsemide/received dosage of IV furosemide 60 mg overnight
=-Is increasing lower extremity edema over the last couple months may be in relation to also underlying RV failure
History of distant Tyvvq-Tjitqxttt-Xxnwy syndrome
History of recurrent DVT on Eliquis most recently in 2020
-Hold Eliquis
Asthma/allergies
-Continue Breo
-Continue cetirizine
Essential hypertension
-Continue hydralazine, doxazosin, atenolol
-With development of hypotension after pericardiocentesis BP meds on hold
-Was restarted back on torsemide
-Losartan still on hold
Polycystic kidney disease status post kidney transplant
Immunosuppressed State
-Continue tacrolimus
-Was due for tacrolimus level today at the [facility]/drawn here -- level is okay
-Sirolimus was recently discontinued in favor of increasing dosing of tacrolimus by [facility] nephrology
-Creatinine at baseline or improved on presentation
-Initiate bladder scanning and straight cath protocol
-Torsemide restarted
CKD 3B
-renal function
-BUN and creatinine shantelle to 67/3.0
-Obtain bladder scan for PVR/no signs of retention
-Continue to monitor daily BMP
-Consult nephrology
Chronic lymphedema
Polycystic liver disease
History of hematuria
Chronic anemia
-Hemoglobin stable
Mild thrombocytopenia unclear etiology
-Stable
GERD
-Continue omeprazole
Hyperlipidemia
-Continue statin
Gout
-Continue probenecid, prednisone
History of shingles
History of right hydrocele
History of left rectus sheath hematoma
History of C. difficile
Full code
DVT prophylaxis-SCDs
Regular diet
Anticipated Discharge: > 48 hours
Subjective/Interval History
-
Date of Service: June 14, 2023
Patient was seen and examined. He reports that after his Eliquis was restarted he noticed more output in his drain.
Objective Data
-
Labs:
Laboratory Results
06/14/23
05:12
WBC 6.9
Hgb 10.6 L
Hct 31.4 L
Plt Count 112 L
Sodium 130 L
Potassium 4.6
Chloride 104
Carbon Dioxide 24
BUN 71 H
Creatinine 2.7 H
Glucose 129 H
Calcium 9.0
Vital Signs:
Vital Signs
Temp Pulse Resp BP Pulse Ox
97.7 F 63 16 141/84 96
06/14/23 07:38 06/14/23 08:20 06/14/23 08:20 06/14/23 05:00 06/14/23 08:20
I&O
06/13/23 06/14/23 06/15/23
06:59 06:59 06:59
Intake Total 250 / 250 960 / 960
Output Total 770 / 770 350 / 350
Balance -520 / -520 610 / 610
--- NOTE | 2023-06-14 08:54 | PTCARENOTE ---
Addendum entered by Suzanne Santana RN 06/14/23 09:24:
Reassessed O/P drainage from Pericardial drain after pt OOB to BR. Pt with 135 mLs of blood tinged drainage this AM. Cardiology notified. Will continue to monitor O/P closely this AM.
Original Note:
Rec'd pt from prev nsg shift AAOx3 w/no c/o CP or SOB. Pt c/o 'tenderness' at L upper chest pericardial drain site, rates as a 2/10. Pt declined PO pain meds at this time. Pericardial drain w/dressing w/old drainage but intact. Scant drainage in the
container overnight. Pt's VS stable w/BP closer to pt's baseline in the 140's/80's, w/HR in the 60's. Pt awaiting echocardiogram today. Pt w/call vera within reach, plan of care ongoing.
[2023-06-14] MEDS: PROGRAF 2 MG PO ×2 (09:03→19:56)
[2023-06-14] MEDS: PROTONIX 40 MG PO (09:04)
[2023-06-14] MEDS: BENEMID 500 MG PO ×2 (09:04→19:55)
[2023-06-14] MEDS: APRESOLINE 50 MG PO ×2 (09:04→19:55)
[2023-06-14] MEDS: ELIQUIS 5 MG PO (09:04)
[2023-06-14] MEDS: COLCHICINE 0.299999999999999989 MG PO (09:04)
[2023-06-14] MEDS: TENORMIN 25 MG PO ×2 (09:04→19:55)
[2023-06-14] MEDS: THERAGRAN 1 TABLET PO (09:05)
[2023-06-14] MEDS: DEMADEX 10 MG PO (09:05)
[2023-06-14] MEDS: DELTASONE 5 MG PO (09:05)
--- NOTE | 2023-06-14 09:48 | W.PN.CARDCBS ---
Addendum entered and electronically signed by Varghese Boss MD 06/14/23 18:29:
Attending addendum: Patient seen and examined. LONG discussion with patient and his son re oral anticoagulation and bloody drainage from pericardial drain.
- Pathology on 2 samples of pericardial fluid has been negative x 2
RECOMMENDATIONS:
- Repeat echocardiogram
- Pneumatic compression sleeves given history of recurring DVT
- I worry about restarting Eliquis or other oral anticoagulation too soon. He tells me that Lovenox is NOT an option as he developed thrombus while on active treatment.
- This is a very difficult situation. It does not sound as if he has ever been off anticoagulation long enough to have a hypercoagulable workup completed per patient
- I would consult Hematology OR Pulmonary to specifically discuss two topics:
--- 1) Is a hypercoagulable workup is needed
--- 2) Should we consider IVC filter. I suspect he will need to be off oral anticoagulation for at least a week or so before restarting
-He has seen Dr. Seo as penology teacher in the past but not sure who is best suited to answer. He has never had a PE just recurring DVT's
Original Note:
Today's Communication / Plan
-
Stop Eliquis, Eliquis was for h/o recurrent DVT without clear cause
Follow pericardial drain output
Impression / Plan
-
PCP: Dr. Khan
Nephrology: Dr. Flores locally, [place] for transplant care
Pulm: Dr. Seo
Impression:
Pericardial effusion
SOB and TARANGO
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
ESRD secondary to polycystic kidney disease
s/p living unrelated renal transplant at [place] 2001
Recurrent squamous cell skin cancers, scalp, neck, and face s/p Mohs procedures
Hepatic cysts.
Recurrent lower extremity DVT
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
chronic Eliquis OAC since 2014, attempted to d/c in 2020 and recurred with DVT so now on lifelong OAC
Hypertension.
Reported h/o Zaxbz-Qnzopbtpq-Dsrlw syndrome.
Hypercholesterolemia.
h/o hepatitis A.
h/o left rectus sheath hematoma November of 2021.
E. coli urosepsis with bacteremia February 2022.
Echo 08/10/22: EF 65-70%, trace MR, trace to mild pericardial effusion
Echo 06/09/23: EF 60%, normal RV size and function, mild MR, mild TR, large circumferential pericardial effusion with evidence of hemodynamic compromise, there is evidence of RV chamber collapse, borderline dilated aortic root at 3.8 cm.
Echo 06/10/23: performed at time of pericardiocentesis, large pericardial effusion
Echo 06/11/23: did not transfer into [facility], limited study to assess pericardial effusion, EF 55%, no WMA, trivial pericardial effusion
Plan:
-Patient restarted on usual dose of Eliquis 5 mg BID for h/o recurrent DVT on 06/13/23 PM. Nursing reports output from pericardial drain increased to 135 ml overnight. Last dose of Eliquis was 06/14/23 AM. Eliquis now on hold.
-Will plan on removing pericardial drain 06/15/23 pending drain output
-Pathology from 06/10/23 pending and expecting report late 06/14/23 or 06/15/23. Additional pathology for fluid sent 06/11/23 also pending.
-Cytology showed increased WBC and ID consulted to see patient. Fluid cultures without growth, but TB and fungal pending. Per ID no indication for antibiotics at this time.
-Patient was given Lasix 60 mg IV x1 on 06/11/23 and then restarted on his usual dose of torsemide 10 mg PO daily. Torsemide held initially in the setting of pericardial effusion with evidence of hemodynamic compromise, Lasix IV was given after
pericardiocentesis
-Nephrology note reviewed and patient restarted on hydralazine but at a higher dose of 50 mg BID. Also restarted on usual dose of atenolol 25 mg BID. Cardura 4 mg HS which is half his outpatient dose to restart 06/14/23 PM.
-Patient with h/o renal transplant in 2001 for history of polycystic kidney disease and is followed at [facility]. Tacrolimus level was 7.5 on 06/11/23 which is normal range
-Cre peaked at 3.0, but is improved at 2.7 on 06/14/23
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 He has never had a hematologic
work-up for recurrent DVTs.
-Updated patient's in the room 06/14/23
HPI: Patient came to [facility] today after an outpatient echo showed pericardial effusion. Patient had an admission to 08/08/22 until 08/17/22 for sepsis and C diff. He had an echo that admission as noted above. Patient says that he was feeling more SOB
over the last month and his PCP ordered a CT chest and had him see Pulm. Patient started on an inhaler and felt better. CT showed a pericardial effusion and patient was sent for an echo that showed a large pericardial effusion with evidence of RV
chamber collapse. Patient was sent to [facility]. He has a h/o RLE DVT in 2009 and was treated with warfarin. 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 In 2014 he transitioned to Eliquis and
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 He held Eliquis for 1 month and on routine LE u/s was noted to have a LLE DVT and Eliquis was resumed. No FH of clotting disorders. He has not had
hematologic testing. He also has a h/o PCKD and had a renal transplant in 2001. Cre has been worse but no recent renal biopsy. He follows at [place].
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
Subjective
Date of Service: June 14, 2023
He feels well
Objective
Labs:
06/14/23 05:12
06/14/23 05:12
Labs
Hgb 10.6 g/dL (13.0-18.0) L 06/14/23 05:12
Hct 31.4 % (39.0-52.0) L 06/14/23 05:12
Plt Count 112 10^3/uL (130-400) L 06/14/23 05:12
PT 18.1 Sec (11.4-14.6) H 06/09/23 15:18
INR 1.49 06/09/23 15:18
APTT 32.6 Sec (23.4-35.0) 06/09/23 15:18
Sodium 130 mmol/L (135-145) L 06/14/23 05:12
Potassium 4.6 mmol/L (3.5-5.1) 06/14/23 05:12
BUN 71 mg/dl (9-20) H 06/14/23 05:12
Creatinine 2.7 mg/dL (0.7-1.3) H 06/14/23 05:12
Glucose 129 mg/dl (70-99) H 06/14/23 05:12
Vital Signs and I&O:
Vital Signs
Temp Pulse Resp BP Pulse Ox
97.7 F 63 16 141/84 96
06/14/23 07:38 06/14/23 08:20 06/14/23 08:20 06/14/23 05:00 06/14/23 08:20
Vital Signs
Temp Pulse Resp BP Pulse Ox
97.7 F 63 16 141/84 96
06/14/23 07:38 06/14/23 08:20 06/14/23 08:20 06/14/23 05:00 06/14/23 08:20
Intake & Output
06/12/23 06/13/23 06/14/23 06/15/23
06:59 06:59 06:59 06:59
Intake Total 250 / 250 250 / 250 960 / 960
Output Total 1540 / 1540 770 / 770 350 / 350 145 / 145
Balance -1290 / -1290 -520 / -520 610 / 610 -145 / -145
Physical Exam
Physical Exam
GEN: NAD, AAOx3
HEENT: EOMI
LUNGS: Decreased BS at bases without wheeze
CV: Reg
ABD: ND
EXT: +1 B/L LE edema.
NEURO: Gross non-focal
SKIN: No rash
--- NOTE | 2023-06-14 10:15 | W.PN.NEPH.PH ---
Today's Communication / Plan
-
cardura
Assessment/Plan
-
Impression:
Pericardial effusion status post pericardiocentesis ~900cc
Chronic kidney disease stage IIIb-IV (2.2-2.8)
Left living unrelated kidney transplant February 2001 at [facility].
Polycystic kidney disease.
Polycystic liver disease.
Bilateral lower extremity DVT x3 with recurrence off
anticoagulation, hence lifelong Eliquis.
Primary hypertension.
GERD.
Gout.
Remote Oinvt-Mhltufyjb-Achxv syndrome.
Right hydrocele.
Left rectus sheath hematoma November 2021.
Small chronic pericardial effusion.
Thrombocytopenia, etiology uncertain, though appears chronic.
Plan:
-follow BMP
-restart half dose cardura
-holding losartan still
-pericardial drain per cardiology
-
-
Date of Service: June 14, 2023
CC / HPI / ROS
-
Chief Complaint:
Acute kidney injury
History of Present Illness:
Creatinine improving to 2.7
BP running higher
pericardial drain in place, increased output
back on eliquis
Review of Systems:
Nonoliguric
Pericardial drain in place
No shortness of breath
Labs
-
Labs:
WBC 6.9 10^3/uL (4.8-10.8) 06/14/23 05:12
RBC 3.38 10^6/uL (4.70-6.10) L 06/14/23 05:12
Hgb 10.6 g/dL (13.0-18.0) L 06/14/23 05:12
Hct 31.4 % (39.0-52.0) L 06/14/23 05:12
Plt Count 112 10^3/uL (130-400) L 06/14/23 05:12
Sodium 130 mmol/L (135-145) L 06/14/23 05:12
Potassium 4.6 mmol/L (3.5-5.1) 06/14/23 05:12
Chloride 104 mmol/L (98-107) 06/14/23 05:12
Carbon Dioxide 24 mmol/L (22-30) 06/14/23 05:12
BUN 71 mg/dl (9-20) H 06/14/23 05:12
Creatinine 2.7 mg/dL (0.7-1.3) H 06/14/23 05:12
eGFR 24.89 06/14/23 05:12
Glucose 129 mg/dl (70-99) H 06/14/23 05:12
Calcium 9.0 mg/dl (8.4-10.2) 06/14/23 05:12
Albumin 2.9 g/dl (3.5-5.0) L 06/10/23 04:11
Physical Exam
-
Vital Signs:
Vital Signs
Temp Pulse Resp BP Pulse Ox
97.7 F 63 16 141/84 96
06/14/23 07:38 06/14/23 08:20 06/14/23 08:20 06/14/23 05:00 06/14/23 08:20
Cardiovascular:: Regular rate and rhythm
Respiratory:: Bilateral: Coarse
Lung Excursion:: Normal
Abdomen:: Nontender and Soft
Bowel Sounds:: Normal
Extremity Edema:: None: Bilateral:
--- NOTE | 2023-06-14 10:55 | W.PN.ID1 ---
Date of Service
Date of Service: June 14, 2023
Today's Communication
Sign off.
Assessment / Plan
Pericardial effusion
- s/p pericardiocentesis. Drain remains in place.
Recurrent DVT (on Eliquis)
HTN
Asthma
Polycystic kidney disease; s/p transplant (2001)
Polycystic liver disease
GERD
Dyslipidemia
Hx of shingles
CHF
Gout
WPW syndrome
Recommendations:
Cultures thus far negative.
Would continue to monitor off of antimicrobial therapy, as there does not appear to be any immediate need to start antibiotics.
AFB stain negative, and culture pending, although this will take upwards of 8 weeks to be returned. Little clinical suspicion for TB at this time.
Follow white count temperature curve, along with pericardial drain output.
Little more to offer from a Infectious Diseases standpoint.
Will see again at your request.
Chief Complaint
-: Other (Pericardial effusion)
Subjective / Review of Systems
Patient seen and examined. Notes ongoing bloody drainage from his pericardial drain. Denies fevers or chills.
Review of Systems: No Fever and No Chills
Vital Signs / Physical Exam
Vital Signs
Vital Signs
Temp Pulse Resp BP Pulse Ox
97.7 F 63 16 141/84 96
06/14/23 07:38 06/14/23 08:20 06/14/23 08:20 06/14/23 05:00 06/14/23 08:20
Physical Exam
Constitutional: No Acute Distress, Well Developed, Comfortable and Non-toxic
Head: Normocephalic
Eyes: Sclera Anicteric
Cardiovascular: Other (Pericardial drain in place with bloody drainage. No purulence.)
Pulmonary: Non Labored
Neurological: Awake and Alert
Psychological: Calm
Objective Data
Lab Data
Lab Results
06/14/23 05:12
06/14/23 05:12
PT 18.1 Sec (11.4-14.6) H 06/09/23 15:18
INR 1.49 06/09/23 15:18
APTT 32.6 Sec (23.4-35.0) 06/09/23 15:18
Estimated Creat Clear 28 ml/min 06/14/23 05:12
Total Bilirubin 0.7 mg/dl (0.2-1.3) 06/10/23 04:11
AST 22 U/L (17-59) 06/10/23 04:11
ALT 17 U/L (0-50) 06/10/23 04:11
Alkaline Phosphatase 59 U/L (38-126) 06/10/23 04:11
Most recent labs reviewed.
Micro Results:
06/11/23 10:08 Acid Fast Bacilli Smear - Preliminary
Pericardial Fluid Acid Fast Bacilli Culture - Preliminary
06/10/23 10:14 Body Fluid Culture - Final
Pericardial Fluid No Growth After 72 Hours
Gram Stain - Final
06/11/23 10:08 Body Fluid Culture - Preliminary
Pericardial Fluid No Growth After 48 Hours
Gram Stain - Preliminary
06/10/23 10:14 Acid Fast Bacilli Smear - Preliminary
Pericardial Fluid Acid Fast Bacilli Culture - Preliminary
06/10/23 10:15 Fungal Smear - Final
Pericardial Fluid No yeast or fungal elements seen.
06/11/23 10:08 Fungal Smear - Final
Pericardial Fluid No yeast or fungal elements seen.
06/10/23 10:15 Fungal Culture - Preliminary
Pericardial Fluid Culture in progress.
Positive cultures are reported as soon as detected.
Final report to follow in four to five weeks.
Imaging:
06/09/2023 ECHO: Normal LV ventricular size, wall thickness and systolic function. EF approximately 60%. Large circumferential pericardial effusion with evidence of hemodynamic compromise is noted. There is evidence of RV chamber collapse. Please
see full dictation for additional detail.
--- NOTE | 2023-06-14 13:38 | CM ---
Chart reviewed. Patient is independent of ADLS, lives with his in a 2 [address], 3 [place], 0 DME. Patient hasn't been able to get OOB with pericardial drain in, concerned with deconditioning. Patient is not current with VN and is
interested. Referral sent to [facility]. Plan is for the patient to return home with [facility]. CM to follow
--- NOTE | 2023-06-14 15:11 | PTCARENOTE ---
Pt has been ambulating in his rm/OOB to BR 3x's since 909 this am. Pt's pericardial drain has only put out an addtl 30mLs since 909 and the drainage in the tubing is more sanguineous than earlier. Reporting some mild 2/10 L shoulder pain, but no
pain at the drain site. Pt decling PRN pain meds at this time. Cardiology BINDING PRINTER notified. No new orders received.
[2023-06-14] MEDS: CARDURA 4 MG PO (19:55)
[2023-06-14] MEDS: LIPITOR 10 MG PO (19:55)
--- NOTE | 2023-06-14 22:25 | PTCARENOTE ---
Pt AAOx3 w/no c/o CP & pt only mildly TARANGO. Pt w/an addtl 60mLs of serosanguineous drainage in pericardial drain since 909 this AM. Drain container marked. Pt's assessment unchanged from this RN's previous assessment earlier today. Pt's VS stable &
pt remains SR on channel manager. No addtl needs at this time. Plan of care ongoing.
[2023-06-15] VITALS (7 sets, daily range): BP systolic 105–145; BP diastolic 65–82; BMI 21.9
[2023-06-15 05:06] LABS: Hematocrit 32.4 % (39.0-52.0); Hemoglobin 10.8 g/dL (13.0-18.0); Mean Corp Hgb Conc. 33.3 g/dL (33.0-37.0); Mean Corpuscular Volume 93.1 fL (80.0-94.0); Mean Platelet Volume 11.8 fL (7.4-10.4); Platelet Count 122 10^3/uL (130-400); Red Blood Cell Count 3.48 10^6/uL (4.70-6.10); Red Cell Dist. Width 16.4 % (11.5-14.5); White Blood Cell Count 6.1 10^3/uL (4.8-10.8)
[2023-06-15 05:35] LABS: Blood Urea Nitrogen 74 mg/dl (9-20); Calcium 9.4 mg/dl (8.4-10.2); Carbon Dioxide 22 mmol/L (22-30); Chloride 105 mmol/L (98-107); Estimated Creatinine Clearance 31 ml/min; Glucose 100 mg/dl (70-99); Potassium 4.6 mmol/L (3.5-5.1); Sodium 132 mmol/L (135-145)
--- NOTE | 2023-06-15 06:00 | PTCARENOTE ---
No output to pericardial drain since 2300 lat night. Pt. medicated with Tylenol for left shoulder discomfort with good relief obtained. Pulse ox high 90's on 2L O2. Pt. slept most of night.
[2023-06-15] MEDS: SYMBICORT 80/4.5 MCG INHALER 2 PUFF INH ×2 (08:13→20:42)
[2023-06-15] MEDS: PROGRAF 2 MG PO ×2 (08:27→19:45)
[2023-06-15] MEDS: TYLENOL 650 MG PO (08:28)
[2023-06-15] MEDS: BENEMID 500 MG PO ×2 (08:28→19:45)
[2023-06-15] MEDS: TENORMIN 25 MG PO ×2 (08:28→19:45)
[2023-06-15] MEDS: DEMADEX 10 MG PO (08:28)
[2023-06-15] MEDS: THERAGRAN 1 TABLET PO (08:28)
[2023-06-15] MEDS: DELTASONE 5 MG PO (08:28)
[2023-06-15] MEDS: APRESOLINE 50 MG PO ×2 (08:28→19:44)
[2023-06-15] MEDS: PROTONIX 40 MG PO (08:28)
--- NOTE | 2023-06-15 10:16 | W.PN.NEPH.PH ---
Today's Communication / Plan
-
losartan
Assessment/Plan
-
Impression:
Pericardial effusion status post pericardiocentesis ~900cc
Chronic kidney disease stage IIIb-IV (2.2-2.8)
Left living unrelated kidney transplant February 2001 at [facility].
Polycystic kidney disease.
Polycystic liver disease.
Bilateral lower extremity DVT x3 with recurrence off
anticoagulation, hence lifelong Eliquis.
Primary hypertension.
GERD.
Gout.
Remote Gjqzy-Aedndnojn-Hmovi syndrome.
Right hydrocele.
Left rectus sheath hematoma November 2021.
Small chronic pericardial effusion.
Thrombocytopenia, etiology uncertain, though appears chronic.
Plan:
-follow BMP
-restart losartan
-anticoagulation needs to be determined
-pericardial drain per cardiology
-
-
Date of Service: June 15, 2023
CC / HPI / ROS
-
Chief Complaint:
Acute kidney injury
History of Present Illness:
Creatinine improving to 2.5
BP improving on multidrug regimen
pericardial drain in place, decreased output
off eliquis
Review of Systems:
Nonoliguric
Pericardial drain in place
No shortness of breath
Labs
-
Labs:
WBC 6.1 10^3/uL (4.8-10.8) 06/15/23 04:42
RBC 3.48 10^6/uL (4.70-6.10) L 06/15/23 04:42
Hgb 10.8 g/dL (13.0-18.0) L 06/15/23 04:42
Hct 32.4 % (39.0-52.0) L 06/15/23 04:42
Plt Count 122 10^3/uL (130-400) L 06/15/23 04:42
Sodium 132 mmol/L (135-145) L 06/15/23 04:42
Potassium 4.6 mmol/L (3.5-5.1) 06/15/23 04:42
Chloride 105 mmol/L (98-107) 06/15/23 04:42
Carbon Dioxide 22 mmol/L (22-30) 06/15/23 04:42
BUN 74 mg/dl (9-20) H 06/15/23 04:42
Creatinine 2.5 mg/dL (0.7-1.3) H 06/15/23 04:42
eGFR 27.30 06/15/23 04:42
Glucose 100 mg/dl (70-99) H 06/15/23 04:42
Calcium 9.4 mg/dl (8.4-10.2) 06/15/23 04:42
Albumin 2.9 g/dl (3.5-5.0) L 06/10/23 04:11
Physical Exam
-
Vital Signs:
Vital Signs
Temp Pulse Resp BP Pulse Ox
97.9 F 66 18 134/79 93
06/15/23 07:13 06/15/23 08:28 06/15/23 08:16 06/15/23 08:28 06/15/23 08:16
Cardiovascular:: Regular rate and rhythm
Respiratory:: Bilateral: Coarse
Lung Excursion:: Normal
Abdomen:: Nontender and Soft
Bowel Sounds:: Normal
Extremity Edema:: None: Bilateral:
--- NOTE | 2023-06-15 11:51 | CM ---
Chart reviewed. Patient is independent of ADLS, lives with his in a 2 [address], 3 [place], 0 DME. Patient currently with his pericardial drain. Referral sent to [facility]. Plan is for the patient to return home with [facility]. CM to follow
[2023-06-15] MEDS: COZAAR 25 MG PO (11:53)
--- NOTE | 2023-06-15 12:14 | CON.ONC ---
Impression
Impression
68 Yo M with hemorrhagic pericardial effusion, and complex PMHx ( DVT x 3 - on eliquis, post phlebitic syndrome with chronic lymphedema), reports to feeling well today.
Plan -
Hypercoagulable workup -
Reports that he follows up with endovascular physician Pietro Waters at [facility], who evaluated patient in 2016 for clotting conditions, and was found to be normal
Records from Dr. Aceves office, requested, pending records.
Will workup as needed basis after records review.
Patient has no h/o Pulmonary embolism, and does not have any active clots at this point of time. As risk outweigh benefits, we will hold off on IVC filters. Discussed with patient and his family by the bedside who are in agreement with the plan.
Recommend starting the patient on low dose eliquis 1-2 days after reduction in the drain output.
Plan
Plan
Pending records from Dr. Aceves office,
IVC filter not favored
recommend low dose eliquis after resolution of drain output.
Continue SCD for DVT prophylaxis.
Patient History
History of Present Illness
68 yo M, with ADPKD, s/p left renal transplant(2001), DVT x 3 on lifelong eliquis, hypertension, asthma, pleural/pericardial effusion, CKD 3b, polycystic liver disease, GERD, hyperlipidemia, shingles, CHF, chronic lymphedema b/l LE secondary to
post phlebitic syndrome, gout, Pzart-Zissknsue-Bfnuu syndrome, right hydrocele, left rectus sheath hematoma was admitted to the hospital after getting an outpatient echocardiogram for progressively worsening SOB since July of 2022. (floodplain manager
Leona). Upon admission, he had hemorrhagic pericardial effusion, his eliquis was discontinued on 06/09, pericardiocentesis was performed with a BARR[place] drain in place. His eliquis was resumed on 06/12 and he started collecting hemorrhagic fluid into
his drain again, hence eliquis discontinued. Today, he denies chest pain, SOB, palpitations, abdominal pain, hematochezia, or change in color of the stool.
Diagnosed with DVT after prolonged global travel for 3 months, was on warfarin, then switched to lovenox on which he developed recurrent DVTs, and has been switched to Eliquis since. Reports bruising after being on eliquis.
Left rectal sheath hematoma
Gross hematuria with FIDE in 2022
Sepsis x 2 times - hospitalization in 2022, unclear etiology.
Last colonoscopy - 2019, negative.
He reports having been evaluated for hypercoagulable states in 2015, by his endovascular physician Pietro Gil after his first DVT episode.
Past-Medical/Surgical History
PMHx - Past Medical History: recurrent DVT on Eliquis, hypertension, asthma, pleural/pericardial effusion, CKD 3b, polycystic kidney disease status post kidney transplant, polycystic liver disease, GERD, hyperlipidemia, shingles, CHF, chronic
lymphedema b/l LE secondary to post phlebitic syndrome, gout, Fcfmy-Iucbrywvf-Vzizt syndrome, right hydrocele, left rectus sheath
PSHx - left renal transplant
Patient Medication
�Medication �Instructions �Recorded �Confirmed �Last Taken �Type
atenolol 25 mg tablet 25 mg PO BID Blood pressure 03/13/22 06/09/23 06/09/23 History
calcium carbonate 600 mg-vitamin 2 tab PO BID Supplement 03/13/22 06/09/23 06/09/23 History
D3 10 mcg (400 unit) tablet
(Calcium 600 + D(3))
cetirizine 10 mg tablet (Zyrtec) 10 mg PO DAILYPRN PRN allergies 03/13/22 06/09/23 Unknown History
omeprazole 20 mg tablet,delayed 20 mg PO DAILY Gastrointestinal 03/13/22 06/09/23 06/09/23 History
release issue
prednisone 5 mg tablet 5 mg PO DAILY Anti-inflammatory 03/13/22 06/09/23 06/09/23 History
probenecid 500 mg tablet 500 mg PO BID Gout 03/13/22 06/09/23 06/09/23 History
simvastatin 20 mg tablet (Zocor) 20 mg PO QPM High cholesterol 03/13/22 06/09/23 06/08/23 History
tacrolimus 1 mg capsule, 2 mg PO Q12 Autoimmune disorder 03/13/22 06/09/23 06/09/23 History
immediate-release
therapeutic multivitamin 1 tab PO DAILY Supplement 03/13/22 06/09/23 06/09/23 History
doxazosin 8 mg tablet 8 mg PO QPM Blood Pressure 06/09/23 06/09/23 06/09/23 History
fluticasone furoate 100 1 inh inhalation R DAILY 06/09/23 06/09/23 06/09/23 History
mcg-vilanterol 25 mcg/dose Lung/Breathing Issues
inhalation powder (Breo Ellipta)
hydralazine 25 mg tablet 25 mg PO BID Blood Pressure 06/09/23 06/09/23 06/09/23 History
losartan 25 mg tablet 25 mg PO DAILY Blood Pressure 06/09/23 06/09/23 06/09/23 History
torsemide 10 mg tablet 10 mg PO DAILY FLUID EXCESS 06/09/23 06/09/23 06/09/23 History
apixaban 5 mg tablet (Eliquis) 5 mg PO BID Blood Clot 06/10/23 06/09/23 06/09/23 History
Prevention/Tx
Active Medications
Generic Name Dose Route Start Last Admin
Trade Name Freq PRN Reason Stop Dose Admin
Acetaminophen 650 mg 06/10/23 19:35 06/15/23 08:28
Acetaminophen 325 Mg Tablet PO 07/08/23 19:34 650 mg
Q4HPRN PRN Administration
mild pain/headache
Atenolol 25 mg 06/13/23 20:00 06/15/23 08:28
Atenolol 25 Mg Tablet PO 07/11/23 19:59 25 mg
Q12 GUSTAVO Administration
Atorvastatin Calcium 10 mg 06/09/23 18:30 06/14/23 19:55
Atorvastatin (Lipitor) 10 Mg Tablet PO 07/07/23 18:29 10 mg
QPM GUSTAVO Administration
Budesonide/Formoterol Fumarate 2 puff 06/10/23 08:00 06/15/23 08:13
Symbicort Inhaler 80/4.5 INH 07/08/23 07:59 2 puff
R BID GUSTAVO Administration
Cetirizine HCl 10 mg 06/09/23 18:24
Cetirizine Hcl 10 Mg Tablet PO 07/07/23 18:23
DAILYPRN PRN
allergies
Colchicine 0.3 mg 06/12/23 08:00 06/14/23 09:04
Colchicine 0.6 Mg Tablet PO 07/10/23 07:59 0.3 mg
Q48H GUSTAVO Administration
Doxazosin Mesylate 4 mg 06/14/23 18:30 06/14/23 19:55
Doxazosin 4 Mg Tablet PO 07/12/23 18:29 4 mg
QPM GUSTAVO Administration
Hydralazine HCl 50 mg 06/10/23 07:35 06/15/23 08:28
Hydralazine 25 Mg Tablet PO 07/07/23 19:59 50 mg
BID GUSTAVO Administration
Losartan Potassium 25 mg 06/15/23 11:00 06/15/23 11:53
Losartan 25 Mg Tablet PO 07/13/23 10:59 25 mg
DAILY GUSTAVO Administration
Morphine Sulfate 2 mg 06/10/23 15:17 06/11/23 00:43
Morphine 2 Mg/Ml Syringe IV 06/24/23 15:16 2 mg
Q4HPRN PRN Administration
severe pain
Multivitamins Therapeutic 1 tablet 06/10/23 08:00 06/15/23 08:28
Multivitamin Tablet PO 07/08/23 07:59 1 tablet
DAILY GUSTAVO Administration
Ondansetron HCl 4 mg 06/10/23 15:52 06/11/23 00:47
Ondansetron 4 Mg/2 Ml Vial IV 07/08/23 15:51 4 mg
Q6HPRN PRN Administration
nausea/vomiting
Oxycodone/Acetaminophen 1 tablet 06/10/23 19:43 06/12/23 07:08
Oxycodone 5 Mg/Apap 325 Mg (Percocet) PO 06/24/23 19:33 1 tablet
Q6HPRN PRN Administration
- moderate pain
Pantoprazole Sodium 40 mg 06/10/23 08:00 06/15/23 08:28
Pantoprazole 40 Mg Delayed Release Tablet PO 07/08/23 07:59 40 mg
DAILY GUSTAVO Administration
Prednisone 5 mg 06/10/23 08:00 06/15/23 08:28
Prednisone 5 Mg Tablet PO 07/08/23 07:59 5 mg
DAILY GUSTAVO Administration
Probenecid 500 mg 06/09/23 20:00 06/15/23 08:28
Probenecid 500 Mg Tablet PO 07/07/23 19:59 500 mg
BID GUSTAVO Administration
Sodium Chloride 0 flush 06/11/23 04:00
Sodium Chloride 0.9% (Flush) Syringe IV 07/09/23 03:59
PER PROTOCOL GUSTAVO
Tacrolimus 2 mg 06/09/23 20:00 06/15/23 08:27
Tacrolimus 1 Mg Capsule PO 07/07/23 19:59 2 mg
Q12 GUSTAVO Administration
Torsemide 10 mg 06/10/23 08:00 06/15/23 08:28
Torsemide 5 Mg Tablet PO 07/08/23 07:59 10 mg
DAILY GUSTAVO Administration
Review of Systems
-
Unable to obtain full review of systems at this time due to: Other
History Source: Patient
EENT: Reports No Symptoms
Respiratory: Reports Trouble Breathing
Cardiac: Reports No Symptoms
GI: Reports No Symptoms
: Reports No Symptoms
Musculoskeletal: Reports Other (reports shoulder pain)
Skin: Reports No Symptoms
Neuro: Reports No Symptoms
Endocrine: Reports No Symptoms
Hematologic/Lymphatic: Reports Bruising (on eliquis.)
Allergy / Immunology: Reports No Symptoms
Psych: Reports No Symptoms
Physical Exam
-
General: Well Developed and Well Nourished
Cardiology: S1, S2 (no ) and Other (regular rate and rhythm., no murmur rubs and gallop)
Pulmonary: Other (decreased breath sounds, b/l lower lobes)
GI: Soft, Normal Bowel Sounds, No Organomegaly and Other
Musculoskeletal: Other (1+ pitting edema, b/l LE)
Extremities: Other (Dorsalis pedis 2 +)
Neurology: Non Focal
Hematologic / Lymphatic: No Lymphadenopathy and Other (purpura noted)
Psych: Calm
Labs
Lab Results
WBC 6.1 10^3/uL (4.8-10.8) 06/15/23 04:42
RBC 3.48 10^6/uL (4.70-6.10) L 06/15/23 04:42
Hgb 10.8 g/dL (13.0-18.0) L 06/15/23 04:42
Hct 32.4 % (39.0-52.0) L 06/15/23 04:42
MCV 93.1 fL (80.0-94.0) 06/15/23 04:42
MCH 31.0 pg (27.0-31.0) 06/15/23 04:42
MCHC 33.3 g/dL (33.0-37.0) 06/15/23 04:42
RDW 16.4 % (11.5-14.5) H 06/15/23 04:42
Plt Count 122 10^3/uL (130-400) L 06/15/23 04:42
MPV 11.8 fL (7.4-10.4) H 06/15/23 04:42
Abs Immat Gran (auto) 0.0 10^3/uL (0-0.05) 06/10/23 04:11
Absolute Neuts (auto) 4.8 10^3/uL (1.4-6.5) 06/10/23 04:11
Absolute Lymphs (auto) 1.9 10^3/uL (1.2-3.4) 06/10/23 04:11
Absolute Monos (auto) 0.5 10^3/uL (0.1-0.6) 06/10/23 04:11
Absolute Eos (auto) 0.2 10^3/uL (0-0.7) 06/10/23 04:11
Absolute Basos (auto) 0.0 10^3/uL (0-0.2) 06/10/23 04:11
Immature Gran % 0.4 % (0-0.5) 06/10/23 04:11
Neutrophils % 64.7 % (42.2-75.2) 06/10/23 04:11
Lymphocytes % 26.1 % (20.5-51.1) 06/10/23 04:11
Monocytes % 6.3 % (1.7-9.3) 06/10/23 04:11
Eosinophils % 2.0 % (0-6) 06/10/23 04:11
Basophils % 0.5 % (0-2) 06/10/23 04:11
Creatinine 2.5 mg/dL (0.7-1.3) H 06/15/23 04:42
Vital Signs
Vital Signs
Temp Pulse Resp BP Pulse Ox
97.4 F 67 18 129/67 98
06/15/23 11:33 06/15/23 11:53 06/15/23 11:33 06/15/23 11:53 06/15/23 11:33
--- NOTE | 2023-06-15 13:54 | W.PN.HOSP.TC ---
Today's Communication/Plan
-
Hematology consulted given the anticoagulation issue
Anticoagulation to be held vs. not held depending on cardiology, hematology
Spoke extensively with patient and his inside patient's room
Assessment / Plan
Assessment / Plan
Physical Exam
General: Well Developed
HEENT: Normocephalic
Respiratory: Clear to Auscultation
Cardiac: Regular Rhythm and Other (Pericardial drain with output in canister)
GI: Soft and nontender. Positive bowel sounds.
Skin: Warm. Dry.
Neuro: Awake, Alert, Oriented and AO x 3
Psych: Calm
Assessment/Plan
68-year-old male with past medical history of recurrent DVT on Eliquis, hypertension, asthma, pleural/pericardial effusion, CKD 3b, polycystic kidney disease status post kidney transplant, polycystic liver disease, GERD, hyperlipidemia, shingles,
CHF, chronic lymphedema, gout, Ioyuc-Adbrduyup-Raswx syndrome, right hydrocele, left rectus sheath hematoma, presented with worsening shortness of breath over the past year. Patient saw his tutor coordinator Dr. Delgadillo who performed outpatient
echocardiogram showing large pericardial effusion and he was recommended to come to the hospital.
Patient denied any chest pain, dizziness or syncope. He has recently had some productive cough. He denies any fevers or chills. He has chronic lower extremity lymphedema but denies any weight gain and in fact has lost weight. 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
local online advertising manager has had difficulty controlling his blood pressure which is been resistant to increasing dosing of doxazosin atenolol and hydralazine and losartan.. Follows with [facility] nephrology transplant specialist and was due to have
tacrolimus level done today at the [facility].
He drinks alcohol 4-5 times a month. He denies smoking.
#Large pericardial effusion with evidence of RV chamber collapse
-Echo showed large circumferential pericardial effusion with evidence of hemodynamic compromise, evidence of right RV chamber collapse
-Follow-up echo shows only trivial pericardial effusion
-Chest x-ray shows a small right and minimal left pleural effusion with mild atelectasis in the lower lobe
-Cardiology consulted
-Held Eliquis again especially with increased bleeding into the pericardial drain
-Patient says Lovenox is not an option
-Hematology consulted to address (given anticoagulation is needed for recurrent DVT but increased bleeding from anticoagulation):
--- 1) If a hypercoagulable workup is needed (patient did have a hypercoagulable work-up with Dr. Pietro Sheets at [facility], several years ago)
--- 2) IVC filter consideration (but patient may need to be off oral anticoagulation for at least a week or so before restarting)
-Now status post pericardiocentesis with drain/increased white cells and LDH> exudative/cultures pending but no growth
-ID consultation appreciated no criteria for antibiotics presently/culture results remain negative/little clinical suspicion for TB/no fever and normal stable white count
# Mild Hypercalcemia likely secondary to calcium supplementation
-Hold calcium supplement
#Chronic HFpEF
-Not in CHF exacerbation on presentation but seems to have increased right pleural effusion this morning
-Continue torsemide/received dosage of IV furosemide 60 mg earlier in the hospitalization
#History of distant Yqsjh-Emtjuuaah-Izhzf syndrome
History of recurrent DVT on Eliquis most recently in 2020
-Hold Eliquis for reasons above
Asthma/allergies
-Continue Breo
-Continue cetirizine
Essential hypertension
-Continue hydralazine, doxazosin, atenolol
-With development of hypotension after pericardiocentesis, patient's BP meds were placed on hold
-Was restarted back on torsemide
-Losartan restarted
Polycystic kidney disease status post kidney transplant
Immunosuppressed State
-Continue tacrolimus
-Was due for tacrolimus level at the [facility]/drawn here -- level is okay
-Sirolimus was recently discontinued in favor of increasing dosing of tacrolimus by [facility] nephrology
-Creatinine at baseline or improved on presentation
-Initiate bladder scanning and straight cath protocol
-Torsemide restarted
CKD 3B
-renal function
-BUN and creatinine shantelle to 67/3.0
-Bladder scan for PVR/no signs of retention
-Continue to monitor daily BMP
-Consult nephrology
Chronic lymphedema
Polycystic liver disease
History of hematuria
Chronic anemia
-Hemoglobin stable
Mild thrombocytopenia unclear etiology
-Stable
GERD
-Continue omeprazole
Hyperlipidemia
-Continue statin
Gout
-Continue probenecid, prednisone
History of shingles
History of right hydrocele
History of left rectus sheath hematoma
History of C. difficile
Full code
DVT prophylaxis-SCDs
Regular diet
Anticipated Discharge: > 48 hours
Subjective/Interval History
-
Date of Service: June 15, 2023
Patient was seen and examined. He denied any new symptoms or complaints overnight.
Objective Data
-
Labs:
Laboratory Results
06/15/23
04:42
WBC 6.1
Hgb 10.8 L
Hct 32.4 L
Plt Count 122 L
Sodium 132 L
Potassium 4.6
Chloride 105
Carbon Dioxide 22
BUN 74 H
Creatinine 2.5 H
Glucose 100 H
Calcium 9.4
Vital Signs:
Vital Signs
Temp Pulse Resp BP Pulse Ox
97.4 F 67 18 129/67 97
06/15/23 11:33 06/15/23 12:00 06/15/23 11:33 06/15/23 11:53 06/15/23 11:34
I&O
06/14/23 06/15/23 06/16/23
06:59 06:59 06:59
Intake Total 960 / 960 480 / 480
Output Total 350 / 350 605 / 605
Balance 610 / 610 -125 / -125
--- NOTE | 2023-06-15 16:10 | PTCARENOTE ---
AOx3, no complaints of pain or discomfort. VSS, remains in NSR. Pericardial drain removed @ [address] New[address] Pt instructed to remain in bed for 1 hour post drain removal. Call vera within reach.
--- NOTE | 2023-06-15 16:59 | W.PN.CARDCBS ---
Addendum entered and electronically signed by Tonya New MD 06/15/23 20:23:
I saw and examined the patient.
The Hand Stonecutter's note was reviewed and I agree with the note.
Comment: Overall doing well. No major complaints. Repeat echo limited this AM. He tells me he had prior hypercoag workup at [facility] in [id number] but cant access records. Request by heme per patient.
Vitals reviewed. Labwork and echo from today reviewed with trivial pericardial effusion. No major events on tele. Exam with well appearing male in NAD, awake, alert, oriented x 3, pericardial drain in place, Lungs with fine bibasilar rales, RR,
normal S1 and S2. no m/r/g, abd soft, NT, ND, + BS, no LE edema. Pericardial fluid with negative cytology and cultures so far.
Reccs:
1. Pericardial drain dc'd this AM. Will plan on repeat limited echo tomorrow to reassess any accumulation.
2. Appreciate heme input. Will await [place] records and reassess when it may be safe to resume low dose eliquis as heme recommended later this week vs. early next week and he would need serial limited echo post eliquis to keep an eye on pericardial
effusion.
Tonya New MD
Original Note:
Today's Communication / Plan
-
pericardial drain pulled today
limited echo in AM
hematology input appreciated
Impression / Plan
-
PCP: Dr. Khan
Nephrology: Dr. Mark lenz [facility] for transplant care
Pulm: Dr. Seo
Impression:
Pericardial effusion
SOB and TARANGO
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
ESRD secondary to polycystic kidney disease
s/p living unrelated renal transplant at [facility] 2001
Recurrent squamous cell skin cancers, scalp, neck, and face s/p Mohs procedures
Hepatic cysts.
Recurrent lower extremity DVT
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
chronic Eliquis OAC since 2014, attempted to d/c in 2020 and recurred with DVT so now on lifelong OAC
Hypertension.
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
Hypercholesterolemia.
h/o hepatitis A.
h/o left rectus sheath hematoma November of 2021.
E. coli urosepsis with bacteremia February 2022.
Echo 08/10/22: EF 65-70%, trace MR, trace to mild pericardial effusion
Echo 06/09/23: EF 60%, normal RV size and function, mild MR, mild TR, large circumferential pericardial effusion with evidence of hemodynamic compromise, there is evidence of RV chamber collapse, borderline dilated aortic root at 3.8 cm.
Echo 06/10/23: performed at time of pericardiocentesis, large pericardial effusion
Echo 06/11/23: did not transfer into [facility], limited study to assess pericardial effusion, EF 55%, no WMA, trivial pericardial effusion
Plan:
-he presented with SOB/TARANGO, found to have significant pericardial effusion. s/p pericardiocentesis 06/09
-Eliquis attempted to be restarted given recurrent DVT, however increased output from pericardial drain was noted. Eliquis has remained on hold since 06/13 AM dose.
-Hematology consulted to assess need for hypercoagulable workup as well as need for IVC filter in setting of recurrent DVTs with inability to take anticoagulation at this time. appreciate input, recommended eliquis at lower dose 2.5mg BID
-Pericardial drain was removed this afternoon
-for repeat echo in AM
-Pathology negative for malignancy
-Continue outpatient torsemide 10 mg p.o. daily. Creatinine improving, 2.5 on 06/14. Weight also trending down if accurate
-Continue hydralazine 50 mg twice daily, atenolol 25 mg every 12 hours, Cardura 4 mg p.o. every afternoon, Cozaar 25 mg daily
-Patient with h/o renal transplant in 2001 for history of polycystic kidney disease and is followed at [facility]. Tacrolimus level was 7.5 on 06/11/23 which is normal range
HPI: Patient came to [facility] today after an outpatient echo showed pericardial effusion. Patient had an admission to 08/08/22 until 08/17/22 for sepsis and C diff. He had an echo that admission as noted above. Patient says that he was feeling more SOB
over the last month and his PCP ordered a CT chest and had him see Pulm. Patient started on an inhaler and felt better. CT showed a pericardial effusion and patient was sent for an echo that showed a large pericardial effusion with evidence of RV
chamber collapse. Patient was sent to [facility]. He has a h/o RLE DVT in 2009 and was treated with warfarin. 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 In 2014 he transitioned to Eliquis and
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 He held Eliquis for 1 month and on routine LE u/s was noted to have a LLE DVT and Eliquis was resumed. No FH of clotting disorders. He has not had
hematologic testing. He also has a h/o PCKD and had a renal transplant in 2001. Cre has been worse but no recent renal biopsy. He follows at [facility].
Progress Note - Operational Test Mechanic
Subjective
Date of Service: June 15, 2023
pericardial drain removed.
Objective
Labs:
06/15/23 04:42
06/15/23 04:42
Labs
Hgb 10.8 g/dL (13.0-18.0) L 06/15/23 04:42
Hct 32.4 % (39.0-52.0) L 06/15/23 04:42
Plt Count 122 10^3/uL (130-400) L 06/15/23 04:42
PT 18.1 Sec (11.4-14.6) H 06/09/23 15:18
INR 1.49 06/09/23 15:18
APTT 32.6 Sec (23.4-35.0) 06/09/23 15:18
Sodium 132 mmol/L (135-145) L 06/15/23 04:42
Potassium 4.6 mmol/L (3.5-5.1) 06/15/23 04:42
BUN 74 mg/dl (9-20) H 06/15/23 04:42
Creatinine 2.5 mg/dL (0.7-1.3) H 06/15/23 04:42
Glucose 100 mg/dl (70-99) H 06/15/23 04:42
Vital Signs and I&O:
Vital Signs
Temp Pulse Resp BP Pulse Ox
97.5 F 69 18 119/65 96
06/15/23 16:08 06/15/23 16:09 06/15/23 16:08 06/15/23 16:09 06/15/23 16:08
Vital Signs
Temp Pulse Resp BP Pulse Ox
97.5 F 69 18 119/65 96
06/15/23 16:08 06/15/23 16:09 06/15/23 16:08 06/15/23 16:09 06/15/23 16:08
Intake & Output
06/13/23 06/14/23 06/15/23 06/16/23
07:59 07:59 07:59 07:59
Intake Total 250 / 250 960 / 960 480 / 480
Output Total 770 / 770 350 / 350 605 / 605
Balance -520 / -520 610 / 610 -125 / -125 -30 / 30
[2023-06-15] MEDS: CARDURA 4 MG PO (19:01)
[2023-06-15] MEDS: LIPITOR 10 MG PO (19:02)
--- NOTE | 2023-06-15 21:14 | PTCARENOTE ---
AOx3 and pleasant. Tele- SR 60-70s. Pt sating at 98% on 2L O2 NC. Assessment noted as documented. L chest wall (old pericardial drain site) c/d/i. Offers no c/o at this time. SCDs on. Currently in bed; call jody w/in reach.
[2023-06-16 04:41] VITALS: BP 128/91
[2023-06-16] MEDS: TYLENOL 650 MG PO ×2 (04:51→22:12)
[2023-06-16 05:01] VITALS: BMI 22.0
[2023-06-16 05:15] LABS: Hematocrit 34.7 % (39.0-52.0); Hemoglobin 11.4 g/dL (13.0-18.0); Mean Corp Hgb Conc. 32.9 g/dL (33.0-37.0); Mean Corpuscular Hgb 31.1 pg (27.0-31.0); Mean Corpuscular Volume 94.8 fL (80.0-94.0); Mean Platelet Volume 11.6 fL (7.4-10.4); Platelet Count 127 10^3/uL (130-400); Red Blood Cell Count 3.66 10^6/uL (4.70-6.10); Red Cell Dist. Width 16.8 % (11.5-14.5); White Blood Cell Count 6.5 10^3/uL (4.8-10.8)
[2023-06-16 05:39] LABS: Blood Urea Nitrogen 80 mg/dl (9-20); Calcium 9.3 mg/dl (8.4-10.2); Carbon Dioxide 26 mmol/L (22-30); Chloride 105 mmol/L (98-107); Estimated Creatinine Clearance 28 ml/min; Glucose 103 mg/dl (70-99); Potassium 5.7 mmol/L (3.5-5.1); Sodium 134 mmol/L (135-145); eGFR 24.89
[2023-06-16] MEDS: SYMBICORT 80/4.5 MCG INHALER 2 PUFF INH ×2 (07:21→19:36)
[2023-06-16 07:22] VITALS: BP 152/91
[2023-06-16] MEDS: PROTONIX 40 MG PO (07:56)
[2023-06-16] MEDS: COLCHICINE 0.299999999999999989 MG PO (07:56)
[2023-06-16] MEDS: APRESOLINE 50 MG PO ×2 (07:56→20:19)
[2023-06-16] MEDS: THERAGRAN 1 TABLET PO (07:56)
[2023-06-16] MEDS: TENORMIN 25 MG PO ×2 (07:56→20:19)
[2023-06-16] MEDS: COZAAR 25 MG PO (07:56)
[2023-06-16] MEDS: DELTASONE 5 MG PO (07:56)
[2023-06-16] MEDS: BENEMID 500 MG PO ×2 (07:57→20:19)
[2023-06-16] MEDS: PROGRAF 2 MG PO ×2 (07:57→20:20)
[2023-06-16] MEDS: DEMADEX 10 MG PO (07:57)
[2023-06-16] MEDS: FLUSH (NSS) 1 FLUSH IV (07:58)
--- NOTE | 2023-06-16 08:24 | W.PN.NEPH.PH ---
Today's Communication / Plan
-
With hold losartan
Lokelma provided
Follow-up BNP
Assessment/Plan
-
Impression:
Pericardial effusion status post pericardiocentesis ~900cc
Chronic kidney disease stage IIIb-IV (2.2-2.8)
Left living unrelated kidney transplant February 2001 at [facility].
Polycystic kidney disease.
Polycystic liver disease.
Bilateral lower extremity DVT x3 with recurrence off
anticoagulation, hence lifelong Eliquis.
Primary hypertension.
GERD.
Gout.
Remote Qaerp-Gvtecymkm-Vjzdv syndrome.
Right hydrocele.
Left rectus sheath hematoma November 2021.
Small chronic pericardial effusion.
Thrombocytopenia, etiology uncertain, though appears chronic.
Plan:
-follow BMP
-restart losartan, will hold given potassium level 5.7, provide Lokelma
-Creatinine at 2.7
-anticoagulation needs to be determined , hematology consult in progress
-pericardial drain per cardiology
-
-
Date of Service: June 16, 2023
CC / HPI / ROS
-
Chief Complaint:
Acute kidney injury
History of Present Illness:
Creatinine up to 2.7
Hyperkalemia noted at 5.7
BP improving on multidrug regimen
pericardial drain in place, decreased output
off eliquis
Review of Systems:
Nonoliguric
Pericardial drain in place
No shortness of breath
Labs
-
Labs:
WBC 6.5 10^3/uL (4.8-10.8) 06/16/23 05:00
RBC 3.66 10^6/uL (4.70-6.10) L 06/16/23 05:00
Hgb 11.4 g/dL (13.0-18.0) L 06/16/23 05:00
Hct 34.7 % (39.0-52.0) L 06/16/23 05:00
Plt Count 127 10^3/uL (130-400) L 06/16/23 05:00
Sodium 134 mmol/L (135-145) L 06/16/23 05:00
Potassium 5.7 mmol/L (3.5-5.1) H 06/16/23 05:00
Chloride 105 mmol/L (98-107) 06/16/23 05:00
Carbon Dioxide 26 mmol/L (22-30) 06/16/23 05:00
BUN 80 mg/dl (9-20) H 06/16/23 05:00
Creatinine 2.7 mg/dL (0.7-1.3) H 06/16/23 05:00
eGFR 24.89 06/16/23 05:00
Glucose 103 mg/dl (70-99) H 06/16/23 05:00
Calcium 9.3 mg/dl (8.4-10.2) 06/16/23 05:00
Albumin 2.9 g/dl (3.5-5.0) L 06/10/23 04:11
Physical Exam
-
Vital Signs:
Vital Signs
Temp Pulse Resp BP Pulse Ox
98.0 F 68 16 152/91 97
06/16/23 07:22 06/16/23 07:22 06/16/23 07:22 06/16/23 07:22 06/16/23 07:22
Cardiovascular:: Regular rate and rhythm
Respiratory:: Bilateral: CTA
Lung Excursion:: Normal
Abdomen:: Nontender and Soft
Extremity Edema:: None: Bilateral:
Rainey Catheter: No
--- NOTE | 2023-06-16 08:31 | PTCARENOTE ---
The patient was 97 on 2L. I decreased his O2 to 1L and his pulse Ox was 96 on the 1L. I will attempt to wean him off the oxygen today. His left chest wall dressing is c/d/i, lung are clear, vss. He has no discomfort at the site. NSR is noted on the
monitor.
[2023-06-16] MEDS: LOKELMA 10 GRAM PO (08:49)
--- NOTE | 2023-06-16 09:00 | W.PN.CARDCBS ---
Addendum entered and electronically signed by Tonya New MD 06/16/23 15:38:
I saw and examined the patient.
The Welding Equipment Sales Representative's note was reviewed and I agree with the note.
Comment: Overall doing well. No major complaints.
Vitals reviewed. Lab work and echo from today reviewed with stable trivial pericardial effusion. No major events on tele.
Exam with well appearing male in NAD, awake, alert, oriented x 3, Lungs clear to auscultation bilaterally, RR, normal S1 and S2. no m/r/g, abd soft, NT, ND, + BS, no LE edema.
Pericardial fluid with negative cytology and cultures so far. Etiology is unclear other than inflammation driven.
Reccs:
1. Pericardial drain dc'd yesterday. Repeat limited transthoracic echocardiogram today with stable trivial pericardial effusion.
2. Per hematology given no evidence of acute DVT, plan is to continue holding off on resuming Eliquis and otherwise continue with close surveillance by lower extremity Dopplers and D-dimer levels.
3. Plan to continue colchicine for 3 months as an anti-inflammatory and to help reduce risk for recurrent pericardial effusion.
4. Defer management of diuretics to nephrology in the setting of prior renal transplant. Pleural effusion is noted on limited echocardiogram however lung exam and shortness of breath are significantly improved since admission.
5. Patient will be monitored an additional night due to hyperkalemia and his renal function.
6. Given acutely there are no plans to resume Eliquis this admission, no need for further repeat limited echo as this admission. We will work on setting up outpatient cardiology follow-up with plan to repeat limited TTE prior to then.
7. Otherwise, stable for discharge from a cardiac standpoint. We will sign off at this point. Please call us with any new questions or concerns.
Tonya New MD, [facility], [facility]
Original Note:
Today's Communication / Plan
-
for repeat echo today
continue to hold OAC
for lokelma. nephro following
Impression / Plan
-
PCP: Dr. Khan
Nephrology: Dr. Flores locally, [place] for transplant care
Pulm: Dr. Seo
Impression:
Pericardial effusion
SOB and TARANGO
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
ESRD secondary to polycystic kidney disease
s/p living unrelated renal transplant at [facility] 2001
Recurrent squamous cell skin cancers, scalp, neck, and face s/p Mohs procedures
Hepatic cysts.
Recurrent lower extremity DVT
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
chronic Eliquis OAC since 2014, attempted to d/c in 2020 and recurred with DVT so now on lifelong OAC
Hypertension.
Reported h/o Aukur-Yfikoezvj-Gjcnr syndrome.
Hypercholesterolemia.
h/o hepatitis A.
h/o left rectus sheath hematoma November of 2021.
E. coli urosepsis with bacteremia February 2022.
Echo 08/10/22: EF 65-70%, trace MR, trace to mild pericardial effusion
Echo 06/09/23: EF 60%, normal RV size and function, mild MR, mild TR, large circumferential pericardial effusion with evidence of hemodynamic compromise, there is evidence of RV chamber collapse, borderline dilated aortic root at 3.8 cm.
Echo 06/10/23: performed at time of pericardiocentesis, large pericardial effusion
Echo 06/11/23: did not transfer into [facility], limited study to assess pericardial effusion, EF 55%, no WMA, trivial pericardial effusion
ECHO 06/15/23: Normal LVEF, trivial pericardial effusion, left pleural effusion, stable compared to prior
Plan:
-he presented with SOB/TARANGO, found to have significant pericardial effusion. s/p pericardiocentesis 06/09
-Eliquis attempted to be restarted given recurrent DVT, however increased output from pericardial drain was noted. Eliquis has remained on hold since 06/13 AM dose. Pericardial drain was removed 06/14
-Pericardial fluid pathology negative for malignancy
-Hematology consulted to assess need for hypercoagulable workup as well as need for IVC filter in setting of recurrent DVTs with inability to take anticoagulation at this time. d/w heme/onc 06/15. for now as is without evidence of active DVT, no
indication for IVC filter (also felt to likely be technically challenging due to history of renal transplant). plan to continue to hold anticoagulation with outpatient reassessment. of note, he does not have cardiac indication for OAC at this time
-hgb stable at 11.4
-for repeat echo today
-Continue outpatient torsemide 10 mg p.o. daily. Creatinine 2.7 on 06/15. Weight stable overnight. weaning supp O2
-Continue hydralazine 50 mg twice daily, atenolol 25 mg every 12 hours, Cardura 4 mg p.o. every afternoon.
-cozaar stopped per nephro today due to increase in Cr and hyperkalemia. for [facility]
-Patient with h/o renal transplant in 2001 for history of polycystic kidney disease and is followed at [facility]. Tacrolimus level was 7.5 on 06/11/23 which is normal range
-d/w nursing
HPI: Patient came to [facility] today after an outpatient echo showed pericardial effusion. Patient had an admission to 08/08/22 until 08/17/22 for sepsis and C diff. He had an echo that admission as noted above. Patient says that he was feeling more SOB
over the last month and his PCP ordered a CT chest and had him see Pulm. Patient started on an inhaler and felt better. CT showed a pericardial effusion and patient was sent for an echo that showed a large pericardial effusion with evidence of RV
chamber collapse. Patient was sent to [facility]. He has a h/o RLE DVT in 2009 and was treated with warfarin. 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 In 2014 he transitioned to Eliquis and
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 He held Eliquis for 1 month and on routine LE u/s was noted to have a LLE DVT and Eliquis was resumed. No FH of clotting disorders. He has not had
hematologic testing. He also has a h/o PCKD and had a renal transplant in 2001. Cre has been worse but no recent renal biopsy. He follows at [facility].
Progress Note - Asset Accountant
Subjective
Date of Service: June 16, 2023
reports feeling well. no CP, SOB
Objective
Labs:
06/16/23 05:00
06/16/23 05:00
Labs
Hgb 11.4 g/dL (13.0-18.0) L 06/16/23 05:00
Hct 34.7 % (39.0-52.0) L 06/16/23 05:00
Plt Count 127 10^3/uL (130-400) L 06/16/23 05:00
PT 18.1 Sec (11.4-14.6) H 06/09/23 15:18
INR 1.49 06/09/23 15:18
APTT 32.6 Sec (23.4-35.0) 06/09/23 15:18
Sodium 134 mmol/L (135-145) L 06/16/23 05:00
Potassium 5.7 mmol/L (3.5-5.1) H 06/16/23 05:00
BUN 80 mg/dl (9-20) H 06/16/23 05:00
Creatinine 2.7 mg/dL (0.7-1.3) H 06/16/23 05:00
Glucose 103 mg/dl (70-99) H 06/16/23 05:00
Vital Signs and I&O:
Vital Signs
Temp Pulse Resp BP Pulse Ox
98.0 F 68 16 152/91 96
06/16/23 07:22 06/16/23 07:22 06/16/23 07:22 06/16/23 07:22 06/16/23 07:55
Vital Signs
Temp Pulse Resp BP Pulse Ox
98.0 F 68 16 152/91 96
06/16/23 07:22 06/16/23 07:22 06/16/23 07:22 06/16/23 07:22 06/16/23 07:55
Intake & Output
06/14/23 06/15/23 06/16/23 06/17/23
07:59 07:59 07:59 07:59
Intake Total 960 / 960 480 / 480
Output Total 350 / 350 605 / 605 30 / 30
Balance 610 / 610 -125 / -125 -30 / -30
Physical Exam
Physical Exam
GEN: No distress, awake, alert, oriented x3. on supp O2
HEENT: supple, anicteric, mmm, eomi
LUNGS: few crackles LLB, no wheezes
CV: Reg, S1/S2, no murmur
ABD: soft, BS+, NT/ND
EXT: No cyanosis, clubbing, edema
NEURO: Gross non-focal
SKIN: Warm, pink, dry. No rash
--- NOTE | 2023-06-16 10:29 | W.PN.ONC ---
Today's Communication / Plan
-
D- dimers and peripheral vascular ultrasound
Impression
Impression
68 Yo M with hemorrhagic pericardial effusion, and complex PMHx ( DVT x 3 - on eliquis, post phlebitic syndrome with chronic lymphedema), reports to feeling well today.
Plan -
Hypercoagulable workup -
Reports that he follows up with endovascular physician Pietro Waters at [facility], who evaluated patient in 2016 for clotting conditions, and was found to be normal
H/o DVT/PE -
No pulmonary embolism, no active clots. D- dimers ordered to get a baseline. Peripheral vascular ultrasound ordered to reassess for new DVT.
Will follow on outpatient basis with D- dimers and peripheral vascular ultrasound.
Recommend starting the patient on low dose eliquis 1-2 days after reduction in the drain output.
Plan
Plan
Pending records from Dr. Aceves office,
IVC filter not favored
recommend low dose eliquis after resolution of drain output.
Continue SCD for DVT prophylaxis.
D- dimers and peripheral vascular ultrasound
Subjective/Objective
Subjective/Objective
Reports feeling better.
Mild SOB.
Vital Signs:
Vital Signs
Temp Pulse Resp BP Pulse Ox
98.0 F 68 16 152/91 96
06/16/23 07:22 06/16/23 07:22 06/16/23 07:22 06/16/23 07:22 06/16/23 07:55
Lab Results:
Laboratory Data
WBC 6.5 10^3/uL (4.8-10.8) 06/16/23 05:00
Hgb 11.4 g/dL (13.0-18.0) L 06/16/23 05:00
Plt Count 127 10^3/uL (130-400) L 06/16/23 05:00
PT 18.1 Sec (11.4-14.6) H 06/09/23 15:18
INR 1.49 06/09/23 15:18
APTT 32.6 Sec (23.4-35.0) 06/09/23 15:18
eGFR 24.89 06/16/23 05:00
--- NOTE | 2023-06-16 10:51 | PTCARENOTE ---
Weaned the patient off oxygen, 96% on RA.
[2023-06-16 11:10] VITALS: BP 127/77
--- NOTE | 2023-06-16 13:35 | PN.CDI ---
CDI
- -
CDI:
Physician Documentation Request
Admit Date: 06/09/23 16:52
Dear Doctor Dewayne,
Please review the following and provide your response in the progress notes.
Clinical Indicators:
Laboratory Tests
06/13/23 06/14/23 06/15/23
05:03 05:12 04:42
Sodium 132 L 130 L 132 L
06/16/23
05:00
Sodium 134 L
Based on the above, please clarify in the progress notes, the appropriate diagnosis, if significant, that supports the above abnormalities and additional evaluation, monitoring and/or treatment rendered:
Hyponatremia
Abnormal lab value, clinically insignificant
Other
Use of terms such as suspected, likely, concern for, or probable (associated with a specific diagnosis that is being evaluated, monitored, or treated as if it exists) are acceptable and can be coded in the inpatient setting, when documented at the
time of discharge.
Thank you,
Acacia Sandhu RN BSN CCDS
CDI Specialist
please contact via tiger text
Please use your independent medical judgment in providing your response.
[2023-06-16 16:19] VITALS: BP 134/80
[2023-06-16] MEDS: LIPITOR 10 MG PO (17:36)
[2023-06-16] MEDS: CARDURA 4 MG PO (17:36)
--- NOTE | 2023-06-16 17:41 | W.PN.HOSP.TC ---
Today's Communication/Plan
-
Continue Colchicine
Hyperkalemia
Hopefully discharge tomorrow as long as patient asymptomatic and labs look okay
Assessment / Plan
Assessment / Plan
Physical Exam
General: Well Developed
HEENT: Normocephalic
Respiratory: Clear to Auscultation
Cardiac: Regular Rhythm. S1 and S2.
GI: Soft and nontender. Positive bowel sounds.
Skin: Warm. Dry.
Neuro: Awake, Alert, Oriented and AO x 3
Psych: Calm
Assessment/Plan
68-year-old male with past medical history of recurrent DVT on Eliquis, hypertension, asthma, pleural/pericardial effusion, CKD 3b, polycystic kidney disease status post kidney transplant, polycystic liver disease, GERD, hyperlipidemia, shingles,
CHF, chronic lymphedema, gout, Fqjgo-Rylcnwpkt-Ahlun syndrome, right hydrocele, left rectus sheath hematoma, presented with worsening shortness of breath over the past year. Patient saw his psychologist chief Dr. Delgadillo who performed outpatient
echocardiogram showing large pericardial effusion and he was recommended to come to the hospital.
Patient denied any chest pain, dizziness or syncope. He has recently had some productive cough. He denies any fevers or chills. He has chronic lower extremity lymphedema but denies any weight gain and in fact has lost weight. 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 Follows with [facility] nephrology transplant specialist and was due to have
tacrolimus level done today at the [facility].
He drinks alcohol 4-5 times a month. He denies smoking.
#Large pericardial effusion with evidence of RV chamber collapse
#Pleural Effusion
-Pericardial drain discontinued on 06/15/23
-Repeat echo on 06/16/23 showed trivial pericardial effusion
-Chest x-ray shows a small right and minimal left pleural effusion with mild atelectasis in the lower lobe
-Cardiology consulted
-Held Eliquis again especially with increased bleeding into the pericardial drain
-Patient says Lovenox is not an option
-Hematology consulted to address (given anticoagulation is needed for recurrent DVT but increased bleeding from anticoagulation):
--- 1) If a hypercoagulable workup is needed (patient did have a hypercoagulable work-up with Dr. Pietro Sheets at [facility], several years ago)
--- 2) IVC filter consideration (but patient may need to be off oral anticoagulation for at least a week or so before restarting)
-Per hematology: no IVC filter given the risks and complications especially with kidney transplant and the fact that patient does not have an active DVT
-Plan for patient's recurrent DVT is for close surveillance by lower extremity Dopplers and D-dimer levels.
-Acutely there are no plans to resume Eliquis this admission, no need for further repeat limited echo as this admission
-Now status post pericardiocentesis with drain/increased white cells and LDH> exudative/cultures pending but no growth
-ID consultation appreciated no criteria for antibiotics presently/culture results remain negative/little clinical suspicion for TB/no fever and normal stable white count
-Continue Colchicine for 3 months
# Mild Hypercalcemia likely secondary to calcium supplementation
-Hold calcium supplement
#Hyponatremia
#Hyperkalemia
-Potassium 5.7 on 06/16/23
-Lokelma given
-Hold Losartan
-Nephrology following
#Chronic HFpEF
-Not in CHF exacerbation on presentation but seems to have increased right pleural effusion this morning
-Continue torsemide/received dosage of IV furosemide 60 mg earlier in the hospitalization
#History of distant Sbafx-Cavhhzfpi-Thefp syndrome
History of recurrent DVT on Eliquis most recently in 2020
-Hold Eliquis for reasons above
Asthma/allergies
-Continue Breo
-Continue cetirizine
Essential hypertension
-Continue hydralazine, doxazosin, atenolol
-With development of hypotension after pericardiocentesis, patient's BP meds were placed on hold
-Was restarted back on torsemide -- continue Torsemide
-Losartan held as above
Polycystic kidney disease status post kidney transplant
Immunosuppressed State
-Continue tacrolimus
-Was due for tacrolimus level at the [facility]/drawn here -- level is okay
-Sirolimus was recently discontinued in favor of increasing dosing of tacrolimus by [facility] nephrology
-Creatinine at baseline or improved on presentation
-Initiate bladder scanning and straight cath protocol
-Torsemide restarted
CKD 3B
-renal function
-BUN and creatinine shantelle to 67/3.0
-Bladder scan for PVR/no signs of retention
-Continue to monitor daily BMP
-Consult nephrology
Chronic lymphedema
Polycystic liver disease
History of hematuria
Chronic anemia
-Hemoglobin stable
Mild thrombocytopenia unclear etiology
-Stable
GERD
-Continue omeprazole
Hyperlipidemia
-Continue statin
Gout
-Continue probenecid, prednisone
History of shingles
History of right hydrocele
History of left rectus sheath hematoma
History of C. difficile
Full code
DVT prophylaxis-SCDs
Regular diet
Anticipated Discharge: Within 24 hours
Subjective/Interval History
-
Date of Service: June 16, 2023
Patient was seen and examined. He denied any dizziness, chest pain or shortness of breath.
Objective Data
-
Vital Signs:
Vital Signs
Temp Pulse Resp BP Pulse Ox
97.4 F 64 18 134/80 100
06/16/23 16:20 06/16/23 16:19 06/16/23 16:20 06/16/23 16:19 06/16/23 16:20
I&O
04/23/24 04/24/24 04/25/24
06:59 06:59 06:59
Intake Total 480 / 480
Output Total 605 / 605
Balance -125 / -125 - / -
[2023-06-16 19:08] VITALS: BP 143/96
--- NOTE | 2023-06-16 21:16 | PTCARENOTE ---
AOX3 and pleasant. Tele- SR. Assessment noted as documented. Pt sating at 96% on RA. L chest wall dsg. c/d/i. Offers no c/o at this time. SCDs on. Currently in bed; call jody w/in reach.
[2023-06-16 22:10] VITALS: BP 136/84
[2023-06-17] VITALS (10 sets, daily range): BP systolic 118–145; BP diastolic 70–86; PULSE 64–68; O2SAT 96–97; BMI 22.0
[2023-06-17 05:06] LABS: Hemoglobin 10.9 g/dL (13.0-18.0); Mean Corpuscular Volume 93.8 fL (80.0-94.0); Mean Platelet Volume 11.4 fL (7.4-10.4); Platelet Count 128 10^3/uL (130-400); Red Blood Cell Count 3.52 10^6/uL (4.70-6.10); Red Cell Dist. Width 16.6 % (11.5-14.5); White Blood Cell Count 6.4 10^3/uL (4.8-10.8)
[2023-06-17 05:39] LABS: Blood Urea Nitrogen 77 mg/dl (9-20); Calcium 9.5 mg/dl (8.4-10.2); Carbon Dioxide 26 mmol/L (22-30); Chloride 107 mmol/L (98-107); Estimated Creatinine Clearance 29 ml/min; Glucose 93 mg/dl (70-99); Potassium 5.2 mmol/L (3.5-5.1); Sodium 134 mmol/L (135-145); eGFR 26.05
[2023-06-17 06:00] LABS: D-Dimer 5.26 ug/mlFEU (0.00-0.50)
[2023-06-17] MEDS: DEMADEX 10 MG PO (07:51)
[2023-06-17] MEDS: DELTASONE 5 MG PO (07:52)
[2023-06-17] MEDS: APRESOLINE 50 MG PO ×2 (07:52→19:54)
[2023-06-17] MEDS: PROGRAF 2 MG PO ×2 (07:52→19:55)
[2023-06-17] MEDS: THERAGRAN 1 TABLET PO (07:52)
[2023-06-17] MEDS: TENORMIN 25 MG PO ×2 (07:52→19:54)
[2023-06-17] MEDS: PROTONIX 40 MG PO (07:52)
[2023-06-17] MEDS: BENEMID 500 MG PO ×2 (07:52→19:54)
--- NOTE | 2023-06-17 08:00 | W.PN.ONC ---
Today's Communication / Plan
-
Thrombophilia assessment from Dr. Aceves pending
IVC filter not favored without evidence of acute thrombosis as preventative efficacy is limited to essentially 6 months
Initiate low-dose Eliquis
Continue SCD for DVT prophylaxis
No evidence of acute thrombus noted on lower extremity ultrasound or VQ scan
Given the elevation of D-dimer without evidence of acute thrombosis it is unclear whether this will of predictive value
Impression
Impression
Recurrent lower extremity thrombosis X3
Elevated D-dimer
Hemorrhagic pericardial effusion
History of renal transplantation-polycystic kidney disease
Subjective/Objective
Subjective/Objective
Doing well no new complaints today. Specifically denies shortness of breath.
Vital Signs:
Vital Signs
Temp Pulse Resp BP Pulse Ox
98.3 F 66 20 118/62 96
06/17/23 07:30 06/17/23 07:51 06/17/23 07:30 06/17/23 07:52 06/17/23 07:30
PE: Unchanged
Lab Results:
Laboratory Data
WBC 6.4 10^3/uL (4.8-10.8) 06/17/23 04:58
Hgb 10.9 g/dL (13.0-18.0) L 06/17/23 04:58
Plt Count 128 10^3/uL (130-400) L 06/17/23 04:58
PT 18.1 Sec (11.4-14.6) H 06/09/23 15:18
INR 1.49 06/09/23 15:18
APTT 32.6 Sec (23.4-35.0) 06/09/23 15:18
eGFR 26.05 06/17/23 04:58
[2023-06-17] MEDS: SYMBICORT 80/4.5 MCG INHALER 2 PUFF INH ×2 (08:21→19:26)
--- NOTE | 2023-06-17 08:23 | PTCARENOTE ---
pt aaox3. states no pain or sob. breath sounds diminished at base room air. left chest wall dressing c/d/i. pt ambulating in room
[2023-06-17] MEDS: LOKELMA 10 GRAM PO (10:18)
--- NOTE | 2023-06-17 10:41 | W.PN.NEPH.PH ---
Today's Communication / Plan
-
Observe
Assessment/Plan
-
Impression:
Pericardial effusion status post pericardiocentesis ~900cc
Chronic kidney disease stage IIIb-IV (2.2-2.8)
Left living unrelated kidney transplant February 2001 at [facility].
Polycystic kidney disease.
Polycystic liver disease.
Bilateral lower extremity DVT x3 with recurrence off
anticoagulation, hence lifelong Eliquis.
Primary hypertension.
GERD.
Gout.
Remote Slzuc-Mzbuzedji-Xptsl syndrome.
Right hydrocele.
Left rectus sheath hematoma November 2021.
Small chronic pericardial effusion.
Thrombocytopenia, etiology uncertain, though appears chronic.
Plan:
-BP stable on current antihypertensive regimen
-Held losartan for hyperkalemia which is improved to 5.2
-Creatinine at 2.6
-anticoagulation needs to be determined , hematology consult in progress
-
-
Date of Service: June 17, 2023
CC / HPI / ROS
-
Chief Complaint:
Acute kidney injury
History of Present Illness:
Creatinine down to 2.6
Hyperkalemia noted at 5.2
BP improving on multidrug regimen
Review of Systems:
Nonoliguric
no chest pain
No shortness of breath
Labs
-
Labs:
WBC 6.4 10^3/uL (4.8-10.8) 06/17/23 04:58
RBC 3.52 10^6/uL (4.70-6.10) L 06/17/23 04:58
Hgb 10.9 g/dL (13.0-18.0) L 06/17/23 04:58
Hct 33.0 % (39.0-52.0) L 06/17/23 04:58
Plt Count 128 10^3/uL (130-400) L 06/17/23 04:58
Sodium 134 mmol/L (135-145) L 06/17/23 04:58
Potassium 5.2 mmol/L (3.5-5.1) H 06/17/23 04:58
Chloride 107 mmol/L (98-107) 06/17/23 04:58
Carbon Dioxide 26 mmol/L (22-30) 06/17/23 04:58
BUN 77 mg/dl (9-20) H 06/17/23 04:58
Creatinine 2.6 mg/dL (0.7-1.3) H 06/17/23 04:58
eGFR 26.05 06/17/23 04:58
Glucose 93 mg/dl (70-99) 06/17/23 04:58
Calcium 9.5 mg/dl (8.4-10.2) 06/17/23 04:58
Albumin 2.9 g/dl (3.5-5.0) L 06/10/23 04:11
Physical Exam
-
Vital Signs:
Vital Signs
Temp Pulse Resp BP Pulse Ox
98.3 F 65 16 118/62 97
06/17/23 07:30 06/17/23 08:23 06/17/23 08:23 06/17/23 07:52 06/17/23 08:23
Cardiovascular:: Regular rate and rhythm
Respiratory:: Bilateral: CTA
Lung Excursion:: Normal
Abdomen:: Nontender
Extremity Edema:: None: Bilateral:
Rainey Catheter: No
--- NOTE | 2023-06-17 11:37 | W.PN.HOSP.TC ---
Today's Communication/Plan
-
Extensive discussions with oncology and cardiology risks and benefits of anticoagulation
Ultimate decision is to start Eliquis 2.5 BID today
Repeat echocardiogram tomorrow morning
Lokelma, potassium is improving
Assessment / Plan
Assessment / Plan
Physical Exam
General: Well Developed
HEENT: Normocephalic
Respiratory: Clear to Auscultation Bilaterally.
Cardiac: Regular Rhythm. S1 and S2.
GI: Soft and nontender. Positive bowel sounds.
Skin: Warm. Dry.
Neuro: Awake, Alert, Oriented and AO x 3
Psych: Calm
Assessment/Plan
68-year-old male with past medical history of recurrent DVT on Eliquis, hypertension, asthma, pleural/pericardial effusion, CKD 3b, polycystic kidney disease status post kidney transplant, polycystic liver disease, GERD, hyperlipidemia, shingles,
CHF, chronic lymphedema, gout, Rfhiz-Ioaaadafv-Ykfer syndrome, right hydrocele, left rectus sheath hematoma, presented with worsening shortness of breath over the past year. Patient saw his revenue enforcement agent Dr. Delgadillo who performed outpatient
echocardiogram showing large pericardial effusion and he was recommended to come to the hospital.
Patient denied any chest pain, dizziness or syncope. He has recently had some productive cough. He denies any fevers or chills. He has chronic lower extremity lymphedema but denies any weight gain and in fact has lost weight. 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 Follows with [facility] nephrology transplant specialist and was due to have
tacrolimus level done today at the [facility].
He drinks alcohol 4-5 times a month. He denies smoking.
#Large pericardial effusion with evidence of RV chamber collapse
#Pleural Effusion
-Now status post pericardiocentesis with drain/increased white cells and LDH> exudative/cultures pending but no growth
-Pericardial drain discontinued on 06/15/23
-Now off oxygen
-Repeat echo on 06/16/23 showed trivial pericardial effusion
-Hematology consulted to address (given anticoagulation is needed for recurrent DVT but increased bleeding from anticoagulation):
--- 1) If a hypercoagulable workup is needed (patient did have a hypercoagulable work-up with Dr. Pietro Sheets at [facility], several years ago)
--- 2) IVC filter consideration (but patient may need to be off oral anticoagulation for at least a week or so before restarting)
-Per hematology: no IVC filter given the risks and complications especially with kidney transplant and the fact that patient does not have an active DVT
-With anticoagulation, will address high D-dimer and chronic DVTs, at the risk of developing a hemorrhagic pericardial effusion
-On 06/17/23, discussed extensively with cardiology and hematology and the conclusion was to start Eliquis 2.5 mg BID starting today and monitor with repeat echocardiogram in the morning
-Plan for patient's recurrent DVT is for close surveillance by lower extremity Dopplers and D-dimer levels, and start Eliquis 2.5 mg BID today
-ID consultation appreciated no criteria for antibiotics presently/culture results remain negative/little clinical suspicion for TB/no fever and normal stable white count
-Continue following microbiology studies
-Continue Colchicine for 3 months
# Mild Hypercalcemia likely secondary to calcium supplementation
-Hold calcium supplement
#Hyponatremia
#Hyperkalemia
-Potassium 5.7 on 06/16/23-->improved to 5.2 on 06/17/23
-Lokelma given x2
-Hold Losartan
-Nephrology following
#Chronic HFpEF
-Continue torsemide 10 mg daily/received dosage of IV furosemide 60 mg earlier in the hospitalization
#History of distant Laaab-Hdzvhxjsz-Voipo syndrome
#History of recurrent DVT on Eliquis most recently in 2020
-Hold Eliquis for reasons above
Asthma/allergies
-Continue Breo
-Continue cetirizine
Essential hypertension
-Continue hydralazine, doxazosin, atenolol
-With development of hypotension after pericardiocentesis, patient's BP medications were placed on hold
-Continue Torsemide
-Losartan held as above
Polycystic kidney disease status post kidney transplant
Immunosuppressed State
-Continue tacrolimus and prednisone
-Was due for tacrolimus level at the [facility]/drawn here -- level is okay
-Sirolimus was recently discontinued in favor of increasing dosing of tacrolimus by [facility] nephrology
-Creatinine at baseline or improved on presentation
-Initiate bladder scanning and straight cath protocol
CKD 3B in the setting of kidney transplant
-Bladder scan for PVR/no signs of retention
-Continue to monitor daily BMP
-Consulted nephrology, recommendations appreciated
Chronic lymphedema
Polycystic liver disease
History of hematuria
Chronic anemia
-Hemoglobin stable
Mild thrombocytopenia unclear etiology
-Stable
GERD
-Continue omeprazole
Hyperlipidemia
-Continue statin
Gout
-Continue probenecid, prednisone
History of shingles
History of right hydrocele
History of left rectus sheath hematoma
History of C. difficile
Full code
DVT prophylaxis-SCDs
Regular diet
Anticipated Discharge: 24 - 48 hours
Subjective/Interval History
-
Date of Service: June 17, 2023
Patient was seen and examined. He denied any new chest pain or shortness of breath, he was off oxygen and denied any new symptoms or complaints.
Objective Data
-
Labs:
Laboratory Results
06/17/23
04:58
WBC 6.4
Hgb 10.9 L
Hct 33.0 L
Plt Count 128 L
Sodium 134 L
Potassium 5.2 H
Chloride 107
Carbon Dioxide 26
BUN 77 H
Creatinine 2.6 H
Glucose 93
Calcium 9.5
Vital Signs:
Vital Signs
Temp Pulse Resp BP Pulse Ox
98.3 F 65 16 118/62 97
06/17/23 07:30 06/17/23 08:23 06/17/23 08:23 06/17/23 07:52 06/17/23 08:23
I&O
06/16/23 06/17/23 06/18/23
06:59 06:59 06:59
Intake Total 240 / 240
Output Total 30 / 30
Balance -30 / -30 240 / 240
[2023-06-17] MEDS: ELIQUIS 2.5 MG PO ×2 (11:53→19:55)
--- NOTE | 2023-06-17 12:00 | W.PN.CARDCBS ---
Addendum entered and electronically signed by Ileana Doe DO 06/17/23 14:57:
I saw and examined the patient.
The Risk Assessment Consultant's note was reviewed and I agree with the note.
Comment: Patient is seen and examined. Offers no new complaints however there has been much discussion around need and dose of anticoagulation for recurrent DVT along with pericardial effusion management
GEN: No distress, awake, alert, oriented x3
HEENT: mmm
LUNGS: CTA B/L, no wheezes/rales
CV: Reg, S1/S2, no murmur
ABD: soft, BS+, NT/ND
EXT: No cyanosis, clubbing, edema
Plan:
-He remains hemodynamically stable s/p pericardiocentesis 06/09
-Eliquis attempted to be restarted given recurrent DVT, however increased output from pericardial drain was noted. Eliquis was again held. Pericardial drain was removed 06/14
-Pericardial fluid pathology negative for malignancy
-Hematology recommending retrial of Eliquis, low-dose, 2.5 mg twice daily due to recurrent history of DVTs. for now as is without evidence of active DVT, no indication for IVC filter (also felt to likely be technically challenging due to history of
renal transplant). restart eliquis 2.5mg BID today. of note, no cardiac indication for OAC
-for repeat echo in AM to reassess for accumulation
-follow hgb
-Continue outpatient torsemide 10 mg p.o. daily. Creatinine 2.6 on 06/16. Weight stable overnight. off supp O2
-Continue hydralazine 50 mg twice daily, atenolol 25 mg every 12 hours, Cardura 4 mg p.o. every afternoon.
-Patient with h/o renal transplant in 2001 for history of polycystic kidney disease and is followed at [facility]. Tacrolimus level was 7.5 on 06/11/23 which is normal range
-he has been arranged for OP echo 06/24 and cardiac follow up 06/28.
-he c/o some point tenderness of L shoulder. doubt cardiac. relieved with tylenol. follow
-d/w nursing. d/w hospitalist, hematology.
-d/w patient and at bedside
Original Note:
Today's Communication / Plan
-
starting eliquis 2.5mg BID today per heme
repeat echo in AM
follow up OP echo 06/24 and cardiac follow up 06/28
Impression / Plan
-
PCP: Dr. Khan
Nephrology: Dr. Flores locally, [place] for transplant care
Pulm: Dr. Seo
Impression:
Pericardial effusion
SOB and TARANGO
CKD 3b to 4
ESRD secondary to polycystic kidney disease
s/p living unrelated renal transplant at [place] 2001
Recurrent squamous cell skin cancers, scalp, neck, and face s/p Mohs procedures
Hepatic cysts.
Recurrent lower extremity DVT
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
chronic Eliquis OAC since 2014, attempted to d/c in 2020 and recurred with DVT so now on lifelong OAC
Hypertension.
Reported h/o Qrzxw-Hkndkvfap-Uirfs syndrome.
Hypercholesterolemia.
h/o hepatitis A.
h/o left rectus sheath hematoma November of 2021.
E. coli urosepsis with bacteremia February 2022.
Echo 08/10/22: EF 65-70%, trace MR, trace to mild pericardial effusion
Echo 06/09/23: EF 60%, normal RV size and function, mild MR, mild TR, large circumferential pericardial effusion with evidence of hemodynamic compromise, there is evidence of RV chamber collapse, borderline dilated aortic root at 3.8 cm.
Echo 06/10/23: performed at time of pericardiocentesis, large pericardial effusion
Echo 06/11/23: did not transfer into [facility], limited study to assess pericardial effusion, EF 55%, no WMA, trivial pericardial effusion
ECHO 06/15/23: Normal LVEF, trivial pericardial effusion, left pleural effusion, stable compared to prior
Plan:
-he presented with SOB/TARANGO, found to have significant pericardial effusion. s/p pericardiocentesis 06/09
-Eliquis attempted to be restarted given recurrent DVT, however increased output from pericardial drain was noted. Eliquis was again held. Pericardial drain was removed 06/14
-Pericardial fluid pathology negative for malignancy
-Hematology recommending retrial of Eliquis, low-dose, 2.5 mg twice daily due to recurrent history of DVTs. for now as is without evidence of active DVT, no indication for IVC filter (also felt to likely be technically challenging due to history of
renal transplant). restart eliquis 2.5mg BID today. of note, no cardiac indication for OAC
-for repeat echo in AM to reassess for accumulation
-follow hgb
-Continue outpatient torsemide 10 mg p.o. daily. Creatinine 2.6 on 06/16. Weight stable overnight. off supp O2
-Continue hydralazine 50 mg twice daily, atenolol 25 mg every 12 hours, Cardura 4 mg p.o. every afternoon.
-Patient with h/o renal transplant in 2001 for history of polycystic kidney disease and is followed at [facility]. Tacrolimus level was 7.5 on 06/11/23 which is normal range
-he has been arranged for OP echo 06/24 and cardiac follow up 06/28.
-he c/o some point tenderness of L shoulder. doubt cardiac. relieved with tylenol. follow
-d/w nursing. d/w hospitalist, hematology.
-d/w patient and at bedside
HPI: Patient came to [facility] today after an outpatient echo showed pericardial effusion. Patient had an admission to 08/08/22 until 08/17/22 for sepsis and C diff. He had an echo that admission as noted above. Patient says that he was feeling more SOB
over the last month and his PCP ordered a CT chest and had him see Pulm. Patient started on an inhaler and felt better. CT showed a pericardial effusion and patient was sent for an echo that showed a large pericardial effusion with evidence of RV
chamber collapse. Patient was sent to [facility]. He has a h/o RLE DVT in 2009 and was treated with warfarin. 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 In 2014 he transitioned to Eliquis and
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 He held Eliquis for 1 month and on routine LE u/s was noted to have a LLE DVT and Eliquis was resumed. No FH of clotting disorders. He has not had
hematologic testing. He also has a h/o PCKD and had a renal transplant in 2001. Cre has been worse but no recent renal biopsy. He follows at [place].
Progress Note - Steward/Stewardess Smoke Room
Subjective
Date of Service: June 17, 2023
denies CP, SOB, palpitations
Objective
Labs:
06/17/23 04:58
06/17/23 04:58
Labs
Hgb 10.9 g/dL (13.0-18.0) L 06/17/23 04:58
Hct 33.0 % (39.0-52.0) L 06/17/23 04:58
Plt Count 128 10^3/uL (130-400) L 06/17/23 04:58
PT 18.1 Sec (11.4-14.6) H 06/09/23 15:18
INR 1.49 06/09/23 15:18
APTT 32.6 Sec (23.4-35.0) 06/09/23 15:18
Sodium 134 mmol/L (135-145) L 06/17/23 04:58
Potassium 5.2 mmol/L (3.5-5.1) H 06/17/23 04:58
BUN 77 mg/dl (9-20) H 06/17/23 04:58
Creatinine 2.6 mg/dL (0.7-1.3) H 06/17/23 04:58
Glucose 93 mg/dl (70-99) 06/17/23 04:58
Vital Signs and I&O:
Vital Signs
Temp Pulse Resp BP Pulse Ox
98.3 F 65 16 118/62 97
06/17/23 07:30 06/17/23 08:23 06/17/23 08:23 06/17/23 07:52 06/17/23 08:23
Vital Signs
Temp Pulse Resp BP Pulse Ox
98.3 F 65 16 118/62 97
06/17/23 07:30 06/17/23 08:23 06/17/23 08:23 06/17/23 07:52 06/17/23 08:23
Intake & Output
06/15/23 06/16/23 06/17/23 06/18/23
07:59 07:59 07:59 07:59
Intake Total 480 / 480 240 / 240
Output Total 605 / 605 30 / 30
Balance -125 / -125 -30 / -30 240 / 240
Physical Exam
Physical Exam
GEN: No distress, awake, alert, oriented x3
HEENT: supple, anicteric, mmm, eomi
LUNGS: CTA B/L, no wheezes/rales
CV: Reg, S1/S2, no murmur
ABD: soft, BS+, NT/ND
EXT: No cyanosis, clubbing, edema
NEURO: Gross non-focal
SKIN: Warm, pink, dry. No rash
--- NOTE | 2023-06-17 13:51 | CM ---
Addendum entered by Clementina Turcios 06/17/23 14:08:
Met with . and Mrs. Olvera to suggest they go to the [facility] to see if they can help get the device for home use.
Original Note:
Reviewed chart. Met with and Mrs. Ramos to review discharge plans. He states he is feeling better. He states he ambulated with physical therapy today. They wanted to know if he could do outpatient Cardiac Rehab. We reviewed [facility]
with [facility]. He also asked about getting a sequential Compression Device to use at home. Telephone call to [facility] to check on device. They do not carry the device. Telephone call to [facility] to check on device. [facility] does not carry
the device. Left message for [facility]. Prior to admission he resides with his spouse a two story with two steps to enter. He has a full flight of steps to get to bedroom/full bathroom. He has a powder room on the first floor. Prior to
admission he was independent with ambulation and adls. He has a prescription plan and uses [facility]. Medical work-up in progress. The discharge plan is to return home with his spouse and [facility] when medically stable.
[2023-06-17] MEDS: LIPITOR 10 MG PO (17:30)
[2023-06-17] MEDS: CARDURA 4 MG PO (17:30)
--- NOTE | 2023-06-17 23:29 | PTCARENOTE ---
Pt AOx3 and pleasant. Tele- SR. VSS. Assessment noted as documented. Offers no c/o at this time. Currently in bed; call jody w/in reach.
[2023-06-18 02:30] VITALS: BP 134/74
[2023-06-18 02:46] LABS: Hematocrit 31.6 % (39.0-52.0); Mean Corp Hgb Conc. 34.8 g/dL (33.0-37.0); Mean Corpuscular Hgb 31.7 pg (27.0-31.0); Mean Corpuscular Volume 91.1 fL (80.0-94.0); Mean Platelet Volume 11.2 fL (7.4-10.4); Platelet Count 158 10^3/uL (130-400); Red Blood Cell Count 3.47 10^6/uL (4.70-6.10); Red Cell Dist. Width 16.6 % (11.5-14.5); White Blood Cell Count 7.3 10^3/uL (4.8-10.8)
[2023-06-18 07:18] VITALS: BP 154/82
[2023-06-18] MEDS: SYMBICORT 80/4.5 MCG INHALER 2 PUFF INH (07:39)
[2023-06-18] MEDS: PROGRAF 2 MG PO (08:29)
[2023-06-18] MEDS: APRESOLINE 50 MG PO (08:29)
[2023-06-18] MEDS: PROTONIX 40 MG PO (08:29)
[2023-06-18 08:30] VITALS: BMI 22.2
[2023-06-18] MEDS: COLCHICINE 0.299999999999999989 MG PO (08:30)
[2023-06-18] MEDS: ELIQUIS 2.5 MG PO (08:30)
[2023-06-18] MEDS: BENEMID 500 MG PO (08:30)
[2023-06-18] MEDS: THERAGRAN 1 TABLET PO (08:31)
[2023-06-18] MEDS: DEMADEX 10 MG PO (08:31)
[2023-06-18] MEDS: TENORMIN 25 MG PO (08:31)
[2023-06-18] MEDS: DELTASONE 5 MG PO (08:31)
--- NOTE | 2023-06-18 08:43 | W.PN.CARDCBS ---
Addendum entered and electronically signed by Ileana Doe DO 06/18/23 12:38:
I saw and examined the patient.
The Plant Operator Helper's note was reviewed and I agree with the note.
Comment: Patient seen and examined. Overall in good spirits and anxious to return home. Offers no new complaints
GEN: No distress, awake, alert, oriented x3
HEENT: mmm
LUNGS: CTA B/L, no wheezes/rales
CV: Reg, S1/S2, no murmur
ABD: soft, BS+, NT/ND
EXT: No cyanosis, clubbing, edema
Plan:
-He remains hemodynamically stable s/p pericardiocentesis 06/09
-Eliquis attempted to be restarted given recurrent DVT, however increased output from pericardial drain was noted. Eliquis was again held. Pericardial drain was removed 06/14
-Pericardial fluid pathology negative for malignancy
-Appreciate hematology input regarding recurrent DVT. Resumed Eliquis 2.5 mg twice daily. Repeat echocardiogram today with stable trivial pericardial effusion. I have encouraged outpatient hematology follow-up
-Repeat echocardiogram scheduled 06/25/2023
-Follow outpatient lab work including hemoglobin
-Continue outpatient torsemide 10 mg p.o. daily. Creatinine 2.6 on 06/16. Weight stable overnight. off supp O2
-Continue hydralazine 50 mg twice daily, atenolol 25 mg every 12 hours, Cardura 4 mg p.o. every afternoon.
-Patient with h/o renal transplant in 2001 for history of polycystic kidney disease and is followed at [facility]. Tacrolimus level was 7.5 on 06/11/23 which is normal range
-He has asked about candidacy for cardiac rehab, will consult for eval
Outpatient cardiac follow-up to be arranged
Will sign off, recall if needed
Original Note:
Today's Communication / Plan
-
Continue Eliquis 2.5 mg twice daily
Repeat echo today. If stable, okay for discharge today from cardiac standpoint
Repeat echo scheduled as outpatient 06/25/2023 with cardiac follow-up 06/29/2023
Continue 3 months of colchicine 0.3 mg every 48 hours based on renal function
Impression / Plan
-
PCP: Dr. Khan
Nephrology: Dr. Mark lenz, [place] for transplant care
Pulm: Dr. Seo
Impression:
Pericardial effusion
SOB and TARANGO
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
ESRD secondary to polycystic kidney disease
s/p living unrelated renal transplant at [facility] 2001
Recurrent squamous cell skin cancers, scalp, neck, and face s/p Mohs procedures
Hepatic cysts.
Recurrent lower extremity DVT
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
chronic Eliquis OAC since 2014, attempted to d/c in 2020 and recurred with DVT so now on lifelong OAC
Hypertension.
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
Hypercholesterolemia.
h/o hepatitis A.
h/o left rectus sheath hematoma November of 2021.
E. coli urosepsis with bacteremia February 2022.
Echo 08/10/22: EF 65-70%, trace MR, trace to mild pericardial effusion
Echo 06/09/23: EF 60%, normal RV size and function, mild MR, mild TR, large circumferential pericardial effusion with evidence of hemodynamic compromise, there is evidence of RV chamber collapse, borderline dilated aortic root at 3.8 cm.
Echo 06/10/23: performed at time of pericardiocentesis, large pericardial effusion
Echo 06/11/23: did not transfer into [facility], limited study to assess pericardial effusion, EF 55%, no WMA, trivial pericardial effusion
ECHO 06/15/23: Normal LVEF, trivial pericardial effusion, left pleural effusion, stable compared to prior
Plan:
-he presented with SOB/TARANGO, found to have significant pericardial effusion. s/p pericardiocentesis 06/09
-Eliquis attempted to be restarted given recurrent DVT, however increased output from pericardial drain was noted. Eliquis was again held. Pericardial drain was removed 06/14
-Pericardial fluid pathology negative for malignancy
-Low-dose Eliquis 2.5 mg twice daily restarted 06/17/2023 due to recurrent history of DVTs. for now as is without evidence of active DVT, no indication for IVC filter (also felt to likely be technically challenging due to history of renal
transplant). restart eliquis 2.5mg BID today. of note, no cardiac indication for OAC
-for repeat echo today to reassess for accumulation
-Hemoglobin stable at 11.
-CBC and BMP in 1 week upon discharge
-Continue colchicine 0.3 mg every 48 hours, renally dosed, for 3 months total
-Continue outpatient torsemide 10 mg p.o. daily. Creatinine 2.6 on 06/16.
-Continue hydralazine 50 mg twice daily, atenolol 25 mg every 12 hours, Cardura 4 mg p.o. every afternoon.
-Patient with h/o renal transplant in 2001 for history of polycystic kidney disease and is followed at [facility]. Tacrolimus level was 7.5 on 06/11/23 which is normal range
-he has been arranged for OP echo 06/24 and cardiac follow up 06/28.
-He has asked about candidacy for cardiac rehab, will consult for eval
-d/w nursing.
HPI: Patient came to [facility] today after an outpatient echo showed pericardial effusion. Patient had an admission to 08/08/22 until 08/17/22 for sepsis and C diff. He had an echo that admission as noted above. Patient says that he was feeling more SOB
over the last month and his PCP ordered a CT chest and had him see Pulm. Patient started on an inhaler and felt better. CT showed a pericardial effusion and patient was sent for an echo that showed a large pericardial effusion with evidence of RV
chamber collapse. Patient was sent to [facility]. He has a h/o RLE DVT in 2009 and was treated with warfarin. 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 In 2014 he transitioned to Eliquis and
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 He held Eliquis for 1 month and on routine LE u/s was noted to have a LLE DVT and Eliquis was resumed. No FH of clotting disorders. He has not had
hematologic testing. He also has a h/o PCKD and had a renal transplant in 2001. Cre has been worse but no recent renal biopsy. He follows at [facility].
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
Subjective
Date of Service: June 18, 2023
No issues overnight
Objective
Labs:
06/18/23 02:38
06/17/23 04:58
Labs
Hgb 11.0 g/dL (13.0-18.0) L 06/18/23 02:38
Hct 31.6 % (39.0-52.0) L 06/18/23 02:38
Plt Count 158 10^3/uL (130-400) D 06/18/23 02:38
PT 18.1 Sec (11.4-14.6) H 06/09/23 15:18
INR 1.49 06/09/23 15:18
APTT 32.6 Sec (23.4-35.0) 06/09/23 15:18
Sodium 134 mmol/L (135-145) L 06/17/23 04:58
Potassium 5.2 mmol/L (3.5-5.1) H 06/17/23 04:58
BUN 77 mg/dl (9-20) H 06/17/23 04:58
Creatinine 2.6 mg/dL (0.7-1.3) H 06/17/23 04:58
Glucose 93 mg/dl (70-99) 06/17/23 04:58
Vital Signs and I&O:
Vital Signs
Temp Pulse Resp BP Pulse Ox
98.4 F 68 16 154/82 97
06/18/23 07:16 06/18/23 08:29 06/18/23 07:42 06/18/23 08:29 06/18/23 07:42
Vital Signs
Temp Pulse Resp BP Pulse Ox
98.4 F 68 16 154/82 97
06/18/23 07:16 06/18/23 08:29 06/18/23 07:42 06/18/23 08:29 06/18/23 07:42
Intake & Output
06/16/23 06/17/23 06/18/23 06/19/23
07:59 07:59 07:59 07:59
Intake Total 240 / 240
Output Total 30 / 30
Balance -30 / -30 240 / 240
Physical Exam
Physical Exam
GEN: No distress, awake, alert, oriented x3
HEENT: supple, anicteric, mmm, eomi
LUNGS: CTA B/L, no wheezes/rales
CV: Reg, S1/S2, no murmur
ABD: soft, BS+, NT/ND
EXT: No cyanosis, clubbing, edema
NEURO: Gross non-focal
SKIN: Warm, pink, dry. No rash
--- NOTE | 2023-06-18 09:04 | PTCARENOTE ---
Pt w/ a generalized rash on his back. Pt w/o complaints. Pt feels that it is a heat rash from lying in bed. Will monitor.
--- NOTE | 2023-06-18 11:29 | W.PN.ONC ---
Today's Communication / Plan
-
stable for discharge. Outpatient follow up.
Impression
Impression
Hemorrhagic pericardial effusion
Recurrent DVT X 3 times, Recent Vascular USG - chronic clots in right and left popliteal veins, and elevated D- dimer levels.
ADPKD s/p left renal transplant, 2001, Hepatic cysts.
Plan
Plan
Pending records from Dr. Aceves office.
IVC filter not favored
recommend low dose eliquis after resolution of drain output.
Continue SCD for DVT prophylaxis. Drain removed, and Echo 06/17 sm - trivial pericardial effusion. Eliquis restarted - 06/16
D- dimers elevated, 5.26, VQ scan - low probability for PE, and peripheral vascular ultrasound - Chronic Thrombus in right superficial femoral vein, right popliteal vein, and left popliteal vein.
Subjective/Objective
Subjective/Objective
Reports feeling well, denies chest pain, SOB, palpitations.
Vital Signs:
Vital Signs
Temp Pulse Resp BP Pulse Ox
98.4 F 68 16 154/82 97
06/18/23 07:16 06/18/23 08:29 06/18/23 07:42 06/18/23 08:29 06/18/23 07:42
Lab Results:
Laboratory Data
WBC 7.3 10^3/uL (4.8-10.8) 06/18/23 02:38
Hgb 11.0 g/dL (13.0-18.0) L 06/18/23 02:38
Plt Count 158 10^3/uL (130-400) D 06/18/23 02:38
PT 18.1 Sec (11.4-14.6) H 06/09/23 15:18
INR 1.49 06/09/23 15:18
APTT 32.6 Sec (23.4-35.0) 06/09/23 15:18
eGFR 26.05 06/17/23 04:58
--- NOTE | 2023-06-18 11:35 | W.PN.NEPH.PH ---
Today's Communication / Plan
-
follow BP
Assessment/Plan
-
Impression:
Pericardial effusion status post pericardiocentesis ~900cc
Chronic kidney disease stage IIIb-IV (2.2-2.8)
Left living unrelated kidney transplant [facility] [address] [facility].
Polycystic kidney disease.
Polycystic liver disease.
Bilateral lower extremity DVT x3 with recurrence off
anticoagulation, hence lifelong Eliquis.
Primary hypertension.
GERD.
Gout.
Remote Frvnh-Uirysvnys-Agslz syndrome.
Right hydrocele.
Left rectus sheath hematoma November 2021.
Small chronic pericardial effusion.
Thrombocytopenia, etiology uncertain, though appears chronic.
Plan:
off losartan for HK
he can increase doxazosin to 8mg nightly (OP dose) if BP remains high at home
continue higher dose hydralazine
await Echo reading
-
-
Date of Service: June 18, 2023
CC / HPI / ROS
-
Chief Complaint:
Acute kidney injury
History of Present Illness:
Creatinine stable at 2.6
Hyperkalemia noted at 5.2
BP up today on multidrug regimen
Review of Systems:
Nonoliguric
no chest pain
No shortness of breath
Labs
-
Labs:
WBC 7.3 10^3/uL (4.8-10.8) 06/18/23 02:38
RBC 3.47 10^6/uL (4.70-6.10) L 06/18/23 02:38
Hgb 11.0 g/dL (13.0-18.0) L 06/18/23 02:38
Hct 31.6 % (39.0-52.0) L 06/18/23 02:38
Plt Count 158 10^3/uL (130-400) D 04/26/24 02:38
Sodium 134 mmol/L (135-145) L 06/17/23 04:58
Potassium 5.2 mmol/L (3.5-5.1) H 06/17/23 04:58
Chloride 107 mmol/L (98-107) 06/17/23 04:58
Carbon Dioxide 26 mmol/L (22-30) 06/17/23 04:58
BUN 77 mg/dl (9-20) H 06/17/23 04:58
Creatinine 2.6 mg/dL (0.7-1.3) H 06/17/23 04:58
eGFR 26.05 06/17/23 04:58
Glucose 93 mg/dl (70-99) 06/17/23 04:58
Calcium 9.5 mg/dl (8.4-10.2) 06/17/23 04:58
Albumin 2.9 g/dl (3.5-5.0) L 06/10/23 04:11
Physical Exam
-
Vital Signs:
Vital Signs
Temp Pulse Resp BP Pulse Ox
98.4 F 68 16 154/82 97
06/18/23 07:16 06/18/23 08:29 06/18/23 07:42 06/18/23 08:29 06/18/23 07:42
Cardiovascular:: Regular rate and rhythm
Respiratory:: Bilateral: Coarse
Lung Excursion:: Normal
Abdomen:: Nontender and Soft
Bowel Sounds:: Normal
Extremity Edema:: None: Bilateral:
[2023-06-18 11:50] VITALS: BP 124/76
--- NOTE | 2023-06-18 13:05 | W.PN.HOSP.TC ---
Today's Communication/Plan
-
Discharge today
Assessment / Plan
Assessment / Plan
Physical Exam
General: Well Developed
HEENT: Normocephalic
Respiratory: Clear to Auscultation Bilaterally.
Cardiac: Regular Rhythm. S1 and S2.
GI: Soft and nontender. Positive bowel sounds.
Skin: Warm. Dry.
Neuro: Awake, Alert, Oriented and AO x 3
Psych: Calm
Assessment/Plan
68-year-old male with past medical history of recurrent DVT on Eliquis, hypertension, asthma, pleural/pericardial effusion, CKD 3b, polycystic kidney disease status post kidney transplant, polycystic liver disease, GERD, hyperlipidemia, shingles,
CHF, chronic lymphedema, gout, Iptxi-Ucfukpwki-Byiee syndrome, right hydrocele, left rectus sheath hematoma, presented with worsening shortness of breath over the past year. Patient saw his field sales executive Dr. Delgadillo who performed outpatient
echocardiogram showing large pericardial effusion and he was recommended to come to the hospital.
Patient denied any chest pain, dizziness or syncope. He has recently had some productive cough. He denies any fevers or chills. He has chronic lower extremity lymphedema but denies any weight gain and in fact has lost weight. 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
local field operations farm manager has had difficulty controlling his blood pressure which is been resistant to increasing dosing of doxazosin atenolol and hydralazine and losartan.. Follows with [facility] nephrology transplant specialist and was due to have
tacrolimus level done today at the [facility].
He drinks alcohol 4-5 times a month. He denies smoking.
#Large pericardial effusion with evidence of RV chamber collapse
#Pleural Effusion
-Now status post pericardiocentesis with drain/increased white cells and LDH> exudative/cultures pending but no growth
-Pericardial drain discontinued on 06/15/23
-Now off oxygen
-Repeat echo on 06/16/23 showed trivial pericardial effusion
-Hematology consulted to address (given anticoagulation is needed for recurrent DVT but increased bleeding from anticoagulation):
--- 1) If a hypercoagulable workup is needed (patient did have a hypercoagulable work-up with Dr. Pietro Sheets at [facility], several years ago)
--- 2) IVC filter consideration (but patient may need to be off oral anticoagulation for at least a week or so before restarting)
-Per hematology: no IVC filter given the risks and complications especially with kidney transplant and the fact that patient does not have an active DVT
-With anticoagulation, will address high D-dimer and chronic DVTs, at the risk of developing a hemorrhagic pericardial effusion
-On 06/17/23, discussed extensively with cardiology and hematology and the conclusion was to start Eliquis 2.5 mg BID starting today and monitor
-Repeat echocardiogram today after Eliquis 2.5 mg BID being started yesterday showed trivial pericardial effusion --> okay to discharge today as discussed with cardiology
-Continue Eliquis 2.5 mg BID
-Plan for patient's recurrent DVT is for close surveillance by lower extremity Dopplers and D-dimer levels, and start Eliquis 2.5 mg BID today
-ID consultation appreciated no criteria for antibiotics presently/culture results remain negative/little clinical suspicion for TB/no fever and normal stable white count
-Continue following microbiology studies
-Continue Colchicine colchicine 0.3 mg every 48 hours, renally dosed, for 3 months total
-Outpatient hematology follow-up
-Outpatient pulmonary follow-up due to pleural effusion
# Mild Hypercalcemia likely secondary to calcium supplementation
-Hold calcium supplement
#Hyponatremia
#Hyperkalemia
-Potassium 5.7 on 06/16/23-->improved to 5.2 on 06/17/23
-Lokelma given x2
-Hold Losartan
-Nephrology following
-CBC and BMP in 1 week after discharge
#Chronic HFpEF
-Continue torsemide 10 mg daily/received dosage of IV furosemide 60 mg earlier in the hospitalization
#History of distant Candn-Ewdseauvs-Smuiy syndrome
#History of recurrent DVT on Eliquis most recently in 2020
-Continue Eliquis as above
Asthma/allergies
-Continue Breo
-Continue cetirizine
Essential hypertension
-Continue hydralazine 50 mg twice daily, atenolol 25 mg every 12 hours, Cardura 4 mg p.o. every afternoon
-With development of hypotension after pericardiocentesis, patient's BP medications were placed on hold
-Continue Torsemide
-Losartan held as above
Polycystic kidney disease status post kidney transplant
Immunosuppressed State
-Continue tacrolimus and prednisone
-Was due for tacrolimus level at the [facility]/drawn here -- level is okay
-Sirolimus was recently discontinued in favor of increasing dosing of tacrolimus by [facility] nephrology
-Creatinine at baseline or improved on presentation
-Bladder scanning and straight cath protocol
CKD 3B in the setting of kidney transplant
-Bladder scan for PVR/no signs of retention
-Continue to monitor daily BMP
-Consulted nephrology, recommendations appreciated
Chronic lymphedema
Polycystic liver disease
History of hematuria
Chronic anemia
-Hemoglobin stable
Mild thrombocytopenia unclear etiology
-Stable
GERD
-Continue omeprazole
Hyperlipidemia
-Continue statin
Gout
-Continue probenecid, prednisone
History of shingles
History of right hydrocele
History of left rectus sheath hematoma
History of C. difficile
Full code
DVT prophylaxis-Eliquis
Regular diet
More than 30 minutes spent in discharge including
Final examination of the patient
Summarizing hospital stay
Instructions for continuing care to all relevant caregivers
Preparation of discharge records, prescriptions, and referral forms
Total time spent (in minutes): 38
Anticipated Discharge: Today
Subjective/Interval History
-
Date of Service: June 18, 2023
Patient was seen and examined. He reports no chest pain or shortness of breath.
Objective Data
-
Labs:
Laboratory Results
06/18/23
02:38
WBC 7.3
Hgb 11.0 L
Hct 31.6 L
Plt Count 158 D
Vital Signs:
Vital Signs
Temp Pulse Resp BP Pulse Ox
97.7 F 68 20 154/82 97
06/18/23 11:46 06/18/23 08:29 06/18/23 11:46 06/18/23 08:29 06/18/23 11:46
I&O
06/17/23 06/18/23 06/19/23
06:59 06:59 06:59
Intake Total 240 / 240
Balance 240 / 240
[2023-06-18 15:46] VITALS: BP 134/88
--- NOTE | 2023-06-18 16:40 | W.DS.TRANS ---
DC Summary - Berry Planter
-
Discharge Instructions:
Sleep Apnea Risk High
Discharge Diagnosis/Procedures Pericardial effusion post pericardiocentesis
Large pericardial effusion with evidence of
Right Ventricular chamber collapse
Pleural Effusion
Mild Hypercalcemia likely secondary to calcium
supplementation
Hyponatremia
Hyperkalemia
Chronic HFpEF
History of distant Lqprr-Bjkidtapo-Yawbp
syndrome
History of recurrent DVT on Eliquis most
recently in 2020
Asthma/allergies
Essential hypertension
Polycystic kidney disease status post kidney
transplant
Immunosuppressed State
Chronic Kidney Disease Stage 3B in the setting
of kidney transplant
Chronic lymphedema
Polycystic liver disease
History of hematuria
Chronic anemia
Mild thrombocytopenia unclear etiology
GERD
Hyperlipidemia
Gout
History of shingles
History of right hydrocele
History of left rectus sheath hematoma
History of C. difficile
Diet Restrict fluids to 64 oz,Low Fat,Low Cholesterol
,2 Gram Sodium
Activity As tolerated
Driving Restrictions No driving
Blood Work CBC, BMP and Magnesium checked in 1 week after
discharge from hospital
Others Tests repeat echocardiogram 06/25/23 @ 10:20AM at
cardiac services at [facility]
Other Services VN
Specialty Instructions Weigh Daily
Instructions:
Stand-Alone Forms: DC Instructions- Cath/EP Lab
Changes to Home Medications: Yes
Discharge Medications:
DC Medications w/original date entered in [employer]
calcium carbonate 600 mg-vitamin D3 10 mcg (400 unit) tablet (Calcium 600 + D(3)) 2 tab PO BID Supplement 03/13/22
cetirizine 10 mg tablet (Zyrtec) 10 mg PO DAILYPRN PRN allergies 03/13/22
omeprazole 20 mg tablet,delayed release 20 mg PO DAILY Gastrointestinal issue 03/13/22
prednisone 5 mg tablet 5 mg PO DAILY Anti-inflammatory 03/13/22
probenecid 500 mg tablet 500 mg PO BID Gout 03/13/22
simvastatin 20 mg tablet (Zocor) 20 mg PO QPM High cholesterol 03/13/22
tacrolimus 1 mg capsule, immediate-release 2 mg PO Q12 Autoimmune disorder 03/13/22
therapeutic multivitamin 1 tab PO DAILY Supplement 03/13/22
fluticasone furoate 100 mcg-vilanterol 25 mcg/dose inhalation powder (Breo Ellipta) 1 inh inhalation R DAILY Lung/Breathing Issues 06/09/23
losartan 25 mg tablet 25 mg PO DAILY Blood Pressure 06/09/23
torsemide 10 mg tablet 10 mg PO DAILY FLUID EXCESS 06/09/23
apixaban 2.5 mg tablet (Eliquis) 2.5 mg PO BID #60 tabs 06/18/23
atenolol 25 mg tablet 25 mg PO Q12H Blood pressure #0 tabs 06/18/23
colchicine 0.6 mg tablet 0.3 mg (1/2 x 0.6 mg) PO Q48H #45 tabs 06/18/23
doxazosin 4 mg tablet 4 mg PO QPM #30 tabs 06/18/23
hydralazine 25 mg tablet 50 mg (2 x 25 mg) PO BID #120 tabs 06/18/23
Home Medication Changes
Colchicine is a new medication.
Doxazosin dose decreased from 8 mg QPM to 4 mg QPM.
Eliquis dose decreased from 5 mg BID to 2.5 mg BID.
Hydralazine dose increased from 25 mg BID to 50 mg BID.
Atenolol is now 25 mg Q12H.
Losartan and Calcium Carbonate are on hold.
Pending Results: Yes
Additional Pending Results:
Microbiology results from hospitalization.
Total time spent discharging patient (in min): 38
[2023-06-18] MEDS: SYMBICORT 80/4.5 MCG INHALER INH (18:12)
--- NOTE | 2023-06-21 10:27 | W.DCSUMMARY ---
Discharge Summary
Discharge Data
Date of Admission: 06/09/23
Date of Discharge: 06/18/23
Total time spent discharging patient (in min): 38
-
Pending Results: Yes
Additional Pending Results:
Microbiology results from hospitalization.
Hospital Course
68 y/o male with past medical history of recurrent DVT on Eliquis, hypertension, asthma, pleural/pericardial effusion, CKD 3b, polycystic kidney disease status post kidney transplant, polycystic liver disease, GERD, hyperlipidemia, shingles, CHF,
chronic lymphedema, gout, Chikm-Gywcukivs-Aufyz syndrome, right hydrocele, left rectus sheath hematoma, presented with worsening shortness of breath over the past year. 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 Delgadillo who performed outpatient
echocardiogram showing large pericardial effusion and he was recommended to come to the hospital. Cardiology was consulted and patient's Eliquis was held. On June 10, 2023, patient had a pericardiocentesis. Patient later received intravenous Lasix
due to hypoxia and shortness of breath. Nephrology was consulted, given patient was a renal transplant patient and had acute kidney injury likely due to hypotension and indirect effects of pericardial effusion. Pericardial drain showed bloody
pericardial output -- therefore patient's Eliquis/anticoagulation continued to be held. Patient's blood pressure was low therefore antihypertensives were held. Infectious Disease was consulted for any possible infectious cause of patient's effusion,
but it was determined that there was no immediate need to start antibiotics -- they noted that some studies including AFB studies would have to be followed up weeks after the study was ordered. Patient's Eliquis was resumed with resulting increased
bloody output, Eliquis was held again and hematology was consulted, and it was determined that placing an IVC filter would be too high of a risk in this patient and there was no ACUTE DVT or history of PE. After much discussion with hematology and
oncology, and in the setting of elevated D-dimer but no acute DVT on lower extremities ultrasound (but chronic DVTs were seen) it was decided that patient should be started on low dose Eliquis and follow-up closely outpatient within a few days after
discharge with hematology and cardiology.
Discharge Plan
-
Patient Disposition: Home with Home Care
Discharge Diagnosis/Procedures: Pericardial effusion post pericardiocentesis
Large pericardial effusion with evidence of Right Ventricular chamber collapse
Pleural Effusion
Mild Hypercalcemia likely secondary to calcium supplementation
Hyponatremia
Hyperkalemia
Chronic HFpEF
History of distant Dhmjp-Biuztnkwz-Pislk syndrome
History of recurrent DVT on Eliquis most recently in 2020
Asthma/allergies
Essential hypertension
Polycystic kidney disease status post kidney transplant
Immunosuppressed State
Chronic Kidney Disease Stage 3B in the setting of kidney transplant
Chronic lymphedema
Polycystic liver disease
History of hematuria
Chronic anemia
Mild thrombocytopenia unclear etiology
GERD
Hyperlipidemia
Gout
History of shingles
History of right hydrocele
History of left rectus sheath hematoma
History of C. difficile
Condition: Fair
Diet: Low Fat, Low Cholesterol, 2 Gram Sodium and Restrict fluids to 64 oz
Activity: As tolerated
Driving Restrictions: No driving
Blood Work: CBC, BMP and Magnesium checked in 1 week after discharge from hospital
Others Tests: repeat echocardiogram 06/25/23 @ 10:20AM at cardiac services at [facility]
Other Services: VN
Specialty Instructions: Weigh Daily- Call MD for wt gain/loss 3 lbs overnight/5 lbs in 1 week
Activity Restrictions/Additional Instructions:
As per hospital board hammer operator, you can increase doxazosin to 8mg nightly (your usual outpatient dose) if BP remains high at home
You need to take Colchicine for a total of 3 months
Stand Alone Forms: DC Instructions- Cath/EP Lab
Referrals:
[facility] [Outside]
Eileen Senior PA-C [Specified Professional Personl] - 06/29/23 3:40 pm (You have a cardiology follow-up appointment at the [facility]. Please call with questions)
Damian Khan MD [Family Provider] - in 4 days
Areli Caro DO [Active] - in one to two weeks (Pleural effusions)
Catalina Mullins MD [Active] - in one to two weeks (Hospital Follow-Up)
Additional Discharge Medication Instructions: Colchicine is a new medication.
Doxazosin dose decreased from 8 mg QPM to 4 mg QPM.
Eliquis dose decreased from 5 mg BID to 2.5 mg BID.
Hydralazine dose increased from 25 mg BID to 50 mg BID.
Atenolol is now 25 mg Q12H.
Losartan and Calcium Carbonate are on hold.
Prescriptions:
New
colchicine 0.6 mg Tablet
0.3 mg PO Q48H Qty: 45 0RF
doxazosin 4 mg Tablet
4 mg PO QPM Qty: 30 1RF
Eliquis 2.5 mg Tablet
2.5 mg PO BID Qty: 60 1RF
hydralazine 25 mg Tablet
50 mg PO BID Qty: 120 1RF
Continued
cetirizine [Zyrtec] 10 mg Tablet
10 mg PO DAILYPRN PRN (Reason: allergies)
prednisone 5 mg Tablet
5 mg PO DAILY
therapeutic multivitamin Tablet
1 tab PO DAILY
simvastatin [Zocor] 20 mg Tablet
20 mg PO QPM
tacrolimus 1 mg Capsule
2 mg PO Q12
probenecid 500 mg Tablet
500 mg PO BID
omeprazole 20 mg Tablet,Delayed Release (Dr/Ec)
20 mg PO DAILY
torsemide 10 mg tablet
10 mg PO DAILY
fluticasone furoate-vilanterol [Breo Ellipta] 100-25 mcg/dose blister with device
1 inh INHALATION R DAILY
Changed
atenolol 25 mg Tablet
25 mg PO Q12H Qty: 0 0RF
Held
calcium carbonate-vitamin D3 [Calcium 600 + D(3)] 600 mg-10 mcg (400 unit) Tablet
2 tab PO BID
Hold Instructions: Resume on 06/25/23. Check with your primary care physician before resuming this medication.
losartan 25 mg tablet
25 mg PO DAILY
Hold Instructions: Resume on 08/27/23. Resume this medication if and only if your outpatient concrete boom pump operator says you can resume this medication.
Discontinued
hydralazine 25 mg tablet
25 mg PO BID
doxazosin 8 mg tablet
8 mg PO QPM
Eliquis 5 MG tablet
5 mg PO BID
Discharge Orders:
Discharge Patient (As Directed); Ordered 06/18/23
Ordered By: Oneil Buchanan
Care Plan Goals
Care Plan Goals:
Problem: Readiness for enhanced knowledge related to diagnosis and treatment plan
Goal: Understand your diagnosis and treatment plan needs, including medications if applicable.
Instructions: Know your diagnosis, underlying causes and treatment plan options, including medications if applicable. Consult with your health care team to learn about your diagnosis and treatment plan, including medications if applicable.
Discharge Date and Time
Discharge Date/Time: 06/18/23 17:30
Print Language: INDONESIAN
== END 2023-06-18 17:30 | disposition home or self-care (01) | DRG 315 ==
LOC: IVU 16:52
PROVIDERS: Internal Medicine; Internal Medicine Cardiovascular Disease; Internal Medicine Hematology & Oncology; Internal Medicine Interventional Cardiology; Physician Assistant Medical; Specialist; ADMITTING PHYSICIAN Hospitalist; ATTENDING PHYSICIAN Hospitalist; CONSULT PHYSICIAN Internal Medicine Infectious Disease; CONSULT PHYSICIAN Nuclear Medicine Nuclear Cardiology; CONSULT PHYSICIAN Specialist; EMERGENCY PHYSICIAN Emergency Medicine; FAMILY PHYSICIAN Family Medicine; OTHER PHYSICIAN Internal Medicine Hematology & Oncology
PROC: 0W9D3ZZ Drainage of Pericardial Cavity, Percutaneous Approach (ICD-10-PCS; 2023-06-10)
DX: I31.39 Other pericardial effusion (noninflammatory) (principal); D84.9 Immunodeficiency, unspecified; Q61.2 Polycystic kidney, adult type; I50.32 Chronic diastolic (congestive) heart failure; Q44.6 Cystic disease of liver; N17.9 Acute kidney failure, unspecified; T86.19 Other complication of kidney transplant; E87.1 Hypo-osmolality and hyponatremia; I13.0 Hypertensive heart and chronic kidney disease with heart failure and stage 1 through stage 4 chronic kidney disease, or unspecified chronic kidney disease; J45.909 Unspecified asthma, uncomplicated; K21.9 Gastro-esophageal reflux disease without esophagitis; I89.0 Lymphedema, not elsewhere classified; Y83.0 Surgical operation with transplant of whole organ as the cause of abnormal reaction of the patient, or of later complication, without mention of misadventure at the time of the procedure; E87.5 Hyperkalemia; E78.00 Pure hypercholesterolemia, unspecified; E83.52 Hypercalcemia; D63.1 Anemia in chronic kidney disease; D69.6 Thrombocytopenia, unspecified; M10.9 Gout, unspecified; I95.9 Hypotension, unspecified; N18.32 Chronic kidney disease, stage 3b; Z79.01 Long term (current) use of anticoagulants; Z79.52 Long term (current) use of systemic steroids; Z79.899 Other long term (current) drug therapy; Z86.718 Personal history of other venous thrombosis and embolism
CPT/HCPCS: 88305; 93308; 33286; 71045; 71046; 80048; 80053; 80197; 82945; 83615; 83735; 84157; 84484; 85014; 85018; 85025; 85027; 85379; 85610; 85730; 86850; 86900; 86901; 87015; 87070; 87102; 87116; 87205; 87206; 88112; 89051; 93005; 93306; 93321; 93325; 93970; 94640; 97163; 97166; 99284; C1894

== ENCOUNTER → 2023-06-25 10:10 | Outpatient (REF) | payer MEDICARE, OTHER, SELFPAY | LOC: RCS 10:10 | PROVIDERS: ATTENDING PHYSICIAN Nuclear Medicine Nuclear Cardiology; FAMILY PHYSICIAN Family Medicine | DX: I31.39 Other pericardial effusion (noninflammatory) (principal); Z79.01 Long term (current) use of anticoagulants | CPT/HCPCS: 93308 ==

== ENCOUNTER → 2023-06-28 11:34 | Outpatient (REF) | payer MEDICARE, OTHER, SELFPAY ==
[2023-06-28 16:45] LABS: % Basophils 0.4 % (0-2); % Eosinophils 1.7 % (0-6); % Immature Granulocytes 0.5 % (0-0.5); % Lymphocytes 16.8 % (20.5-51.1); % Monocytes 6.2 % (1.7-9.3); % Neutrophils 74.4 % (42.2-75.2); Absolute Eosinophils 0.2 10^3/uL (0-0.7); Absolute Immature Granulocytes 0.1 10^3/uL (0-0.05); Absolute Lymphocytes 1.7 10^3/uL (1.2-3.4); Absolute Monocytes 0.6 10^3/uL (0.1-0.6); Absolute Neutrophils 7.4 10^3/uL (1.4-6.5); Hematocrit 33.3 % (39.0-52.0); Hemoglobin 10.9 g/dL (13.0-18.0); Mean Corp Hgb Conc. 32.7 g/dL (33.0-37.0); Mean Corpuscular Hgb 31.1 pg (27.0-31.0); Mean Corpuscular Volume 94.9 fL (80.0-94.0); Mean Platelet Volume 11.3 fL (7.4-10.4); Nucleated Red Blood Cells % 0 % (-); Platelet Count 221 10^3/uL (130-400); Red Blood Cell Count 3.51 10^6/uL (4.70-6.10); Red Cell Dist. Width 17.2 % (11.5-14.5); White Blood Cell Count 9.9 10^3/uL (4.8-10.8)
[2023-06-28 16:52] LABS: Blood Urea Nitrogen 77 mg/dl (9-20); Calcium 10.4 mg/dl (8.4-10.2); Carbon Dioxide 22 mmol/L (22-30); Chloride 111 mmol/L (98-107); Glucose 117 mg/dl (70-99); Potassium 5.8 mmol/L (3.5-5.1); Sodium 141 mmol/L (135-145); eGFR 26.05
== END ==
LOC: HWLAB 11:34
PROVIDERS: ATTENDING PHYSICIAN Family Medicine
DX: N18.32 Chronic kidney disease, stage 3b (principal); I10 Essential (primary) hypertension; R79.0 Abnormal level of blood mineral; K21.00 Gastro-esophageal reflux disease with esophagitis, without bleeding
CPT/HCPCS: 36415; 80048; 83735; 85025

== ENCOUNTER → 2023-07-20 07:07 | Outpatient (REF) | payer MEDICARE, OTHER, SELFPAY | LOC: HWRCS 07:07 | PROVIDERS: ATTENDING PHYSICIAN Physician Assistant Medical; FAMILY PHYSICIAN Family Medicine | DX: I31.39 Other pericardial effusion (noninflammatory) (principal) | CPT/HCPCS: 93306 ==

== ENCOUNTER → 2023-09-15 09:17 | Outpatient (REF) | payer MEDICARE, OTHER, SELFPAY | LOC: HWRCS 09:17 | PROVIDERS: ATTENDING PHYSICIAN Internal Medicine Interventional Cardiology; FAMILY PHYSICIAN Family Medicine | DX: I15.1 Hypertension secondary to other renal disorders (principal); R06.09 Other forms of dyspnea | CPT/HCPCS: 93308 ==

== ENCOUNTER → 2024-01-17 09:20 | Outpatient (REF) | payer MEDICARE, OTHER, SELFPAY | LOC: HWRCS 09:20 | PROVIDERS: ATTENDING PHYSICIAN Nuclear Medicine Nuclear Cardiology; FAMILY PHYSICIAN Family Medicine | DX: I31.39 Other pericardial effusion (noninflammatory) (principal) | CPT/HCPCS: 93306 ==

== ENCOUNTER → 2024-09-14 11:04 | Outpatient (REF) | payer MEDICARE, OTHER, SELFPAY | LOC: RAD 11:04 | PROVIDERS: ATTENDING PHYSICIAN Surgery; FAMILY PHYSICIAN Family Medicine | DX: K42.9 Umbilical hernia without obstruction or gangrene (principal) | CPT/HCPCS: 74176 ==

== ENCOUNTER → 2024-11-02 09:01 | Outpatient (REF) | payer MEDICARE, OTHER, SELFPAY | LOC: HWRCS 09:01 | PROVIDERS: ATTENDING PHYSICIAN Nuclear Medicine Nuclear Cardiology; FAMILY PHYSICIAN Family Medicine | DX: I31.39 Other pericardial effusion (noninflammatory) (principal); Z94.0 Kidney transplant status | CPT/HCPCS: 93306 ==

== ENCOUNTER 2024-11-08 06:33 | Day surgery (SDC) | payer MEDICARE, OTHER, SELFPAY ==
[2024-10-31 14:06] VITALS: BMI 25.3
--- NOTE | 2024-11-06 12:42 | PTCARENOTE ---
[facility] Britney Howell at Dr. Moreno's office made aware.
[2024-11-08 10:07] VITALS: BP 164/90; BMI 25.3
[2024-11-08] MEDS: TYLENOL 1000 MG PO (10:12)
== END 2024-11-08 06:34 | disposition home or self-care (01) ==
LOC: SDS 06:33
PROVIDERS: ATTENDING PHYSICIAN Surgery; FAMILY PHYSICIAN Family Medicine
DX: K42.9 Umbilical hernia without obstruction or gangrene (principal); Z53.9 Procedure and treatment not carried out, unspecified reason
CPT/HCPCS: 49591

== ENCOUNTER 2024-11-15 06:32 | Day surgery (SDC) | payer MEDICARE, OTHER, SELFPAY ==
[2024-11-15] VITALS (8 sets, daily range): BP systolic 143–173; BP diastolic 83–94; BMI 23.1
[2024-11-15] MEDS: TYLENOL 1000 MG PO (10:33)
[2024-11-15] MEDS: NORMOSOL-R/PLASMALYTE-A 1000 IV (10:48)
[2024-11-15] MEDS: TRANSDERM-SCOP 1 PATCH TRANSDERM (11:03)
[2024-11-15] MEDS: EMEND 40 MG PO (11:03)
[2024-11-15] MEDS: ROXICODONE 5 MG PO (16:15)
== END 2024-11-15 16:40 | disposition home or self-care (01) ==
LOC: SDS 06:32
PROVIDERS: ATTENDING PHYSICIAN Surgery
DX: K42.9 Umbilical hernia without obstruction or gangrene (principal); K43.9 Ventral hernia without obstruction or gangrene
CPT/HCPCS: 49591

== ENCOUNTER 2024-12-06 18:30 | Emergency (ER) | payer MEDICARE, OTHER, SELFPAY ==
[2024-12-06 18:31] VITALS: BP 162/93
[2024-12-06 19:34] VITALS: BP 161/83
[2024-12-06 19:36] VITALS: BMI 23.9
[2024-12-06] MEDS: NORCO 5/325 1 TABLET PO (20:07)
--- NOTE | 2024-12-06 21:55 | ED.MUSCINJ ---
HPI-Injury
General
Chief Complaint: Fall
Source: patient
Exam Limitations: none
Time Seen by Provider: 12/06/24 19:11
Nursing documentation reviewed up to this point in time: agreed with
History of Present Illness-Injury
Is this injury a work related problem?: No
Is pt an associate of [facility]/[place]?: No
Initial Injury comments:
Patient to the emergency department after a fall on steps. States he slipped on steps and fell back. States he hit the back of his head on the steps. No loss of consciousness. Complains of pain to right shoulder, right posterior ribs. Injury
occurred just prior to arrival. He was brought to the emergency department by spouse.
Past History
Past History
ED Past Medical History: Other (DVT) and Other (Polycystic kidney disease)
ED Past Surgical History: Other (Kidney transplant)
Social History
Tobacco: Non-smoker
Alcohol: None
Drug: None
Personal:
Living: with family
Employment: Employed
Family History
Family History: Other (nonContributory)
Review of Systems
Review of Systems
Allergies reviewed?: Yes
All Other Systems: ROS reviewed and negative except as documented in HPI and ROS
Constitutional: Reports no symptoms
EENT: Reports no symptoms
Respiratory: Reports no symptoms
Cardiac: Reports no symptoms
ABD/GI: Reports no symptoms
: Reports no symptoms
Musculoskeletal: Reports joint pain (Pain to right shoulder and right posterior ribs)
Skin: Reports no symptoms
Neurological: Reports no symptoms
Psychiatric: Reports no symptoms
Musculoskeletal Injury Exam
Musculoskeletal Injury Exam
Right Shoulder:
Pain with Movement?: Moderate
Tender to palpation?: Moderate
Soft tissue swelling?: Mild
External deformity and angulation?: None
Joint effusion?: None
Contusion?: Moderate
Hematoma-local bleeding into tissue?: None
Strain- Sprain- Tear (Connective tissue injury)?: Moderate
Crepitus with movement?: No
Joint instability?: No
Malalignment/deformity?: No
Range of motion: Limited
Distal skin color and temperature: normal-warm & good color
Capillary Refill: normal
Normal distal neurovascular exam?: Yes
Peripheral Pulses: radial (right): 3+
Right Posterior Ribs:
Pain with Movement?: Moderate
Tender to palpation?: Moderate
Soft tissue swelling?: None
External deformity and angulation?: None
Joint effusion?: None
Contusion?: Moderate
Hematoma-local bleeding into tissue?: None
Strain- Sprain- Tear (Connective tissue injury)?: Moderate
Crepitus with movement?: No
Joint instability?: No
Malalignment/deformity?: No
Range of motion: Limited
Distal skin color and temperature: normal-warm & good color
Capillary Refill: normal
Normal distal neurovascular exam?: Yes
Phy Exam
General Physical Exam
General Presentation: moderate distress
General age: appears stated age
General Skin: warm and dry
General Habitus: normal
General Mental: alert
Cardiovascular Exam
Cardiovascular Exam: regular rate/rhythm and no edema
Pulmonary Exam
Pulmonary Exam: no respiratory distress
Chest Wall: Right posterior: tenderness
Neurological Exam
Neurological Exam: alert, oriented x3 and CN II-XII intact
Ronnie Coma Scale
Eye Opening: Spontaneous
Verbal Response: Oriented
Motor Response: Obeys Commands
GCS Total Score: 15
Musculoskeletal Exam
Musculoskeletal Exam: no edema and neuro vasc intact
Skin Exam
Skin Exam: normal color, warm/dry and no rash
Psychiatric Exam
Psychiatric Exam: normal mood/affect
Injury Course
Orders/Labs/Results
Orders:
Orders
10/15/25 18:35
CT Head W/o Iv Contrast Urgent
Comment:
Reason For Exam: Fall on Eliquis, + head strike
CR Shoulder - Right Min 2 View Urgent
Comment:
Reason For Exam: Fall, unable to move arm.
12/06/24 19:59
Hydrocodone 5/APAP 325 [[place] 5/325] 1 tablet PO NOW STA
Ribs, Right 3 View W/PA Chest [CR Ribs-right 3 Vw W/pa Chest*] Urgent
Comment:
Reason For Exam: fall
12/06/24 22:24
Sling Right-Treatment ONCE
*Radiology
Radiology exam reviewed: radiology read reviewed
*Pulse Oximetry
SaO2: 96
Oxygen Mode of Delivery: Room air
Patient hypoxic: no
*Critical Care Note
Total Time (30-74mins, 75-104mins- exclusive of procedures): Not Applicable
Update Note
Update Note:
Patient to the emergency department after a slip and fall on his stairs at home. He reports hitting his head on the step but denies loss of consciousness. Came to the emergency department with complaint of right posterior rib pain and right
shoulder pain. UA negative for gross bleeding.R ib series completed. A nondisplaced fracture of the ninth rib was identified. Lungs were clear to auscultation no evidence of pneumothorax on chest x-ray. Pulse ox 98% on room air. Right shoulder
x-ray negative for acute findings. He has limited range of motion to the right shoulder due to pain. He was placed in a shoulder sling for comfort and will provide a short course of narcotic pain medication also for comfort. He will be discharged
home accompanied by his spouse, will follow-up with his orthopedic provider
ED Attending Note
-
Portions of this chart may have been created with voice recognition software.� Occasional wrong word or��sound alike� substitutions may have occurred due to the inherent limitations of voice recognition software.
Discharge Plan
Departure
Patient Disposition: Home (Routine Discharge)
Date of Disposition: 12/06/24
Time of Disposition: 22:24
Patient with high blood pressure during this ER visit?: No
Condition: Good
Covid-19: Not Applicable
Discharge Problem:
Head injury, Fracture of rib, Shoulder sprain
Instructions: Head Injury in Adults (DC), Contusion (DC), Preventing falls in adults, Shoulder Sprain ED, How to use an incentive spirometer, Rib fracture or bruised rib - ED (DC), Cold therapy for pain
Prescriptions:
No Action
cetirizine [Zyrtec] 10 mg Tablet
10 mg PO DAILYPRN PRN (Reason: allergies)
prednisone 5 mg Tablet
5 mg PO DAILY
therapeutic multivitamin Tablet
1 tab PO DAILY
simvastatin [Zocor] 20 mg Tablet
20 mg PO QPM
tacrolimus 1 mg Capsule
2 mg PO DAILY
probenecid 500 mg Tablet
500 mg PO BID
calcium carbonate-vitamin D3 [Calcium 600 + D(3)] 600 mg-10 mcg (400 unit) Tablet
1 tab PO BID
omeprazole 20 mg Tablet,Delayed Release (Dr/Ec)
20 mg PO DAILY
Eliquis 2.5 mg Tablet
2.5 mg PO BID Qty: 60 1RF
hydralazine 25 mg Tablet
50 mg PO BID Qty: 120 1RF
atenolol 25 mg Tablet
25 mg PO Q12H Qty: 0 0RF
acetaminophen [Tylenol] 325 mg Tablet
650 mg PO Q4H PRN (Reason: pain)
cyanocobalamin (vitamin B-12) 1,000 mcg Tablet
1,000 mcg PO MOWEFR
tacrolimus 1 mg Capsule
1.5 mg PO QPM
doxazosin 4 mg tablet
8 mg PO QPM
oxycodone 5 mg tablet
5 mg PO Q4HPRN PRN (Reason: breakthrough/severe pain) Qty: 10 0RF
Referrals:
Damian Khan MD [Family Provider, Family Practice] - Follow up in 2-3 days
Shaun Overton MD [Active, Orthopedics] - Call in 1-3 days for appt
Interventions
Interventions:
*Risk Screen - Suicide Last Done: 12/06/24 18:31
*General Assessment Last Done: 12/06/24 18:31
*Neglect/Abuse Screening Last Done: 12/06/24 19:42
*ED- Fall Risk Assessment Last Done: 12/06/24 19:37
*ED COVID-19 Vaccine History Last Done: 12/06/24 19:37
*ED Influenza Vaccine History Last Done: 12/06/24 19:37
*Nursing Disposition Last Done: 12/06/24 22:44
ED-Musculoskeletal Assessment Last Done: 12/06/24 19:45
ED- Neurological Assessment Last Done: 12/06/24 19:38
ED-Skin Assessment Last Done: 12/06/24 19:41
Discharge Date and Time
Discharge Date/Time: 12/06/24 22:44
Print Language: COMORAN
== END 2024-12-06 22:44 | disposition home or self-care (01) ==
LOC: EMR 18:30
PROVIDERS: EMERGENCY PHYSICIAN Student in an Organized Health Care Education/Training Program; FAMILY PHYSICIAN Family Medicine
DX: S09.90XA Unspecified injury of head, initial encounter (principal); S22.31XA Fracture of one rib, right side, initial encounter for closed fracture; S43.401A Unspecified sprain of right shoulder joint, initial encounter; Z79.01 Long term (current) use of anticoagulants; Z86.718 Personal history of other venous thrombosis and embolism; Z94.0 Kidney transplant status; W10.9XXA Fall (on) (from) unspecified stairs and steps, initial encounter; W22.09XA Striking against other stationary object, initial encounter
CPT/HCPCS: 99284; 70450; 71101; 73030

== ENCOUNTER → 2024-12-10 10:38 | Outpatient (REF) | payer MEDICARE, OTHER, SELFPAY | LOC: MRI 3T 10:38 | PROVIDERS: ATTENDING PHYSICIAN Family Medicine | DX: S49.91XA Unspecified injury of right shoulder and upper arm, initial encounter (principal); M25.511 Pain in right shoulder; W19.XXXA Unspecified fall, initial encounter | CPT/HCPCS: 73221 ==

== ENCOUNTER → 2024-12-22 10:21 | Outpatient (REF) | payer MEDICARE, OTHER, SELFPAY | LOC: HWRAD 10:21 | PROVIDERS: ATTENDING PHYSICIAN Specialist; FAMILY PHYSICIAN Family Medicine | DX: M19.011 Primary osteoarthritis, right shoulder (principal); M75.101 Unspecified rotator cuff tear or rupture of right shoulder, not specified as traumatic | CPT/HCPCS: 73200 ==

== ENCOUNTER 2025-01-05 05:59 | Day surgery (SDC) | payer MEDICARE, OTHER, SELFPAY ==
--- NOTE | 2024-12-19 12:52 | CM ---
Addendum entered by Fiona Spence RN 12/20/24 11:33:
Demographics: confirmed
Living situation: livs with Paige
Support Person Post Operatively: Paige
History of
VN: yes, not currently on service
SNF: no
Outpatient: Patient will follow up when surgically cleared at [facility]
Has patient purchased required equipment: sling
PCP: Erin
Pharmacy: [facility]
Post Operative Discharge Plan: Home with , outpatient when surgically cleared.
Original Note:
Left message for [facility].
[2024-12-27 13:38] VITALS: BMI 23.5
[2024-12-27 14:06] LABS: Hematocrit 38.5 % (39.0-52.0); Hemoglobin 12.6 g/dL (13.0-18.0); Mean Corp Hgb Conc. 32.7 g/dL (33.0-37.0); Mean Corpuscular Volume 98.0 fL (80.0-94.0); Platelet Count 122 10^3/uL (130-400); Red Cell Dist. Width 14.3 % (11.5-14.5)
[2024-12-27 14:37] LABS: ALT (SGPT) 16 U/L (0-50); AST (SGOT) 20 U/L (17-59); Albumin 3.9 g/dl (3.5-5.0); Alkaline Phosphatase 72 U/L (38-126); Blood Urea Nitrogen 58 mg/dl (9-20); Calcium 10.0 mg/dl (8.4-10.2); Carbon Dioxide 22 mmol/L (22-30); Chloride 109 mmol/L (98-107); Estimated Creatinine Clearance 29 ml/min; Glucose 142 mg/dl (70-99); Potassium 5.1 mmol/L (3.5-5.1); Sodium 140 mmol/L (135-145); Total Protein 6.6 g/dl (6.3-8.2); eGFR 25.88
[2024-12-27 14:57] VITALS: BMI 23.5
[2024-12-28 09:40] LABS: Glycohemoglobin (HgbA1c) 5.6 % (4.0-5.9)
[2025-01-05] VITALS (8 sets, daily range): BP systolic 153–178; BP diastolic 89–103; BMI 23.5
[2025-01-05] MEDS: TYLENOL 1000 MG PO (06:57)
[2025-01-05] MEDS: NORMOSOL-R/PLASMALYTE-A 1000 IV (07:08)
--- NOTE | 2025-01-05 07:57 | W.DS.TRANS ---
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
-
Discharge Instructions:
Sleep Apnea Risk Intermediate
Discharge Diagnosis/Procedures OA of R glenohumeral joint s/p R Reverse TSA w/
Dr Overton 01/05/25
Diet Regular
Additional Diets Adequate hydration, minimize opioids, and wear
TEDs stockings to prevent low blood pressure/
dizziness.
Activity As tolerated
Additional Activity Non-weightbearing right upper extremity
Driving Restrictions Not until seen by your Dr
Bathing Restrictions OK to Shower
Wound Care Leave dressing on until seen by surgeon's office
for follow-up.
Specialty Instructions Weigh Daily
Instructions:
Stand-Alone Forms: SDS Total Shoulder D/C Inst.
Changes to Home Medications: Yes
Discharge Medications:
DC Medications w/original date entered in [employer]
calcium 600 mg (as carbonate)-vitamin D3 10 mcg (400 unit) tablet (Calcium 600 + D(3)) 1 tab PO BID Supplement 03/13/22
cetirizine 10 mg tablet (Zyrtec) 10 mg PO DAILYPRN PRN allergies 03/13/22
omeprazole 20 mg tablet,delayed release 20 mg PO DAILY Gastrointestinal issue 03/13/22
prednisone 5 mg tablet 5 mg PO DAILY Anti-inflammatory 03/13/22
probenecid 500 mg tablet 500 mg PO BID Gout 03/13/22
simvastatin 20 mg tablet (Zocor) 20 mg PO QPM High cholesterol 03/13/22
tacrolimus 1 mg capsule, immediate-release 2 mg PO DAILY Autoimmune disorder 03/13/22
therapeutic multivitamin 1 tab PO DAILY Supplement 03/13/22
Held on 01/05/25. Instructions: Resume on 01/13/25.
apixaban 2.5 mg tablet (Eliquis) 2.5 mg PO BID #60 tabs 06/18/23
cyanocobalamin (vitamin B-12) 1,000 mcg tablet 1,000 mcg PO MOWEFR 11/01/24
tacrolimus 1 mg capsule, immediate-release 1.5 mg PO QPM 11/01/24
atenolol 25 mg tablet 25 mg PO BID Blood pressure 12/25/24
doxazosin 8 mg tablet 8 mg PO HS 12/25/24
cefadroxil 500 mg capsule 500 mg PO DAILY #7 caps 12/27/24
multivitamin 1 tab PO DAILY 12/27/24
Held on 01/05/25. Instructions: Resume on 01/13/25.
mupirocin 2 % topical ointment 1 applic intranasal BID #1 tube 12/27/24
ondansetron HCl 4 mg tablet 4 mg PO Q8H PRN nausea and vomiting #30 tabs 12/27/24
oxycodone 5 mg tablet 5 - 10 mg (1 - 2 x 5 mg) PO Q6H PRN moderate-severe pain #30 tabs 12/27/24
Saccharomyces boulardii 250 mg capsule (Florastor) 250 mg PO BID #1 cap 01/05/25
acetaminophen 325 mg tablet (Tylenol) 650 mg (2 x 325 mg) PO QID #0 tabs 01/05/25
docusate sodium 100 mg capsule (Colace) 100 mg PO BID stool softner #1 cap 01/05/25
hydralazine 50 mg tablet 50 mg PO BID #0 tabs 01/05/25
magnesium hydroxide 400 mg/5 mL oral suspension (Milk of Magnesia) 30 ml PO HS PRN constipation #1 mL 01/05/25
sennosides 8.6 mg tablet (Senokot) 17.2 mg (2 x 8.6 mg) PO BID laxative #2 tabs 01/05/25
Home Medication Changes
cefadroxil 500 mg capsule 500 mg PO DAILY #7 caps 12/27/24
multivitamin 1 tab PO DAILY 12/27/24
Held on 01/05/25. Instructions: Resume on 01/13/25.
mupirocin 2 % topical ointment 1 applic intranasal BID #1 tube 12/27/24
ondansetron HCl 4 mg tablet 4 mg PO Q8H PRN nausea and vomiting #30 tabs 12/27/24
oxycodone 5 mg tablet 5 - 10 mg (1 - 2 x 5 mg) PO Q6H PRN moderate-severe pain #30 tabs 12/27/24
Saccharomyces boulardii 250 mg capsule (Florastor) 250 mg PO BID #1 cap 01/05/25
acetaminophen 325 mg tablet (Tylenol) 650 mg (2 x 325 mg) PO QID #0 tabs 01/05/25
docusate sodium 100 mg capsule (Colace) 100 mg PO BID stool softner #1 cap 01/05/25
hydralazine 50 mg tablet 50 mg PO BID #0 tabs 01/05/25
magnesium hydroxide 400 mg/5 mL oral suspension (Milk of Magnesia) 30 ml PO HS PRN constipation #1 mL 01/05/25
sennosides 8.6 mg tablet (Senokot) 17.2 mg (2 x 8.6 mg) PO BID laxative #2 tabs 01/05/25
Pending Results: No
[2025-01-05] MEDS: ANCEF 5 IV (11:59)
== END 2025-01-05 12:05 | disposition home or self-care (01) ==
LOC: SDS 05:59
PROVIDERS: ATTENDING PHYSICIAN Specialist; FAMILY PHYSICIAN Family Medicine; OTHER PHYSICIAN Physician Assistant; OTHER PHYSICIAN Specialist; REFERRING PHYSICIAN Nuclear Medicine Nuclear Cardiology
DX: M19.011 Primary osteoarthritis, right shoulder (principal); Z96.611 Presence of right artificial shoulder joint
CPT/HCPCS: 23472; 36415; 73020; 80053; 83036; 85027; 86850; 86900; 86901; 87070; C1713; C1776